=== PATIENT | male | born 1940 | race Caucasian/White ===

== ENCOUNTER 2023-08-21 15:39 | Inpatient (IN) ==
[2023-08-21] MEDS ORDERED: SODIUM CHLORIDE 0.9% 500 ML IV ONE ×2 (15:55→17:01)
[2023-08-21 16:10] LABS: Hematocrit (blood only) 28.7 % (42.0-52.0); Hemoglobin 8.8 g/dl (14.0-18.0); Mean Corpuscular Hemoglobin 27.2 pg (25.0-34.0); Mean Corpuscular Hgb Conc 30.7 g/dL (32.0-36.0); Mean Corpuscular Volume 88.6 fL (80.0-100.0); Mean Platelet Volume 9.5 fL (9.4-12.4); Nucleated RBC # (auto) 0.02 K/uL (0.00-0.12); Nucleated RBC % (auto) 0.2 %; Platelet Count 312 K/uL (130-400); RDW Coefficient of Variation 14.5 % (11.5-14.5); RDW Standard Deviation 46.9 fL (36.4-46.3); Red Blood Count 3.24 M/uL (4.70-6.10); White Blood Count 12.91 K/ul (4.8-10.8)
--- NOTE | 2023-08-21 16:22 | XRay Report ---
SINGLE VIEW CHEST CLINICAL HISTORY: Generalized weakness. FINDINGS: An AP, portable, upright chest radiograph is compared to study dated 05/02/2023. The examina tion is degraded by portable technique and patient rotation. The heart is enlarged and noting athero sclerotic calcification of the thoracic aorta. The pulmonary vasculature is noncongested. There is mi ld elevation of the right hemidiaphragm with bibasilar scarring/atelectasis. No airspace consolidatio n or large pleural effusion is identified. No pneumothorax is seen. The skeletal structures are osteo penic. There are chronic/healed left-sided rib fractures. IMPRESSION: Cardiomegaly with no active disease in the chest. ACT 112: Negative or not required by law. Electronically signed by: Scooter Ryder M.D. 08/21/2023 4:21 PM
--- NOTE | 2023-08-21 16:25 | Emergency Department Note ---
Impression & Plan Symptomatic anemia, Acute GI bleeding, SARS-CoV-2 positive ED Provider Note NAME: CAYDEN RAHMAN AGE: 83 SEX: M : 1940 ARRIVES VIA: Ambulance INFORMANT: Patient ED PROVIDER(S): Jarett Sutherland DO CHIEF COMPLAINT: weakness HPI: Patient is an 83-year-old male who presents ER who notes that he feels very weak. This has been present for the past 2 days. He denies any headache or change in vision. No chest pain or shortness of breath. No nausea, vomiting, or diarrhea. He has no other complaints. No cough or congestion. No dysuria, urgency, or frequency. He notes he was at [facility] and admitted at the end of July for COVID. His symptoms have resolved. He did have physical therapy and now he is weak again. ADDITIONAL HISTORY OBTAINED: Per HPI Chronic Medical/Social Conditions Affecting Care: Per HPI PAST MEDICAL HISTORY:See Below PAST SURGICAL HISTORY:See Below FAMILY HISTORY:See Below SOCIAL HISTORY:See Below HOME MEDICATIONS:See Below ALLERGIES:See Below VITALS:See Below PHYSICAL EXAMINATION: GENERAL: Sitting up in bed, alert, well appearing, well nourished, no distress, non-toxic EYE EXAM: normal conjunctiva. PERRL and EOM's grossly intact. OROPHARYNX: no exudate, no erythema, lips, buccal mucosa, and tongue normal and mucous membranes are moist NECK: supple, no nuchal rigidity, no adenopathy, non-tender LUNGS: Clear to auscultation. Normal chest wall mechanics HEART: no murmurs, S1 normal and S2 normal ABDOMEN: abdomen soft, non-tender, normo-active bowel sounds, no masses, no rebound or guarding. RECTAL: Heme positive UPPER EXTREMITIES: upper extremities are grossly normal. LOWER EXTREMITIES: No pitting edema. NEURO EXAM: Normal sensorium, cranial nerves II-XII intact, normal speech, no weakness of arms, no weakness of legs. No drift. Finger to nose intact. Gross sensation intact. MEDICAL DECISION MAKING: Patient is an 83-year-old male who presents ER for above-stated complaint. IV was established blood work was obtained. Labs show mild leukocytosis of 12,000. Significant anemia at 8.8 down from 14.8 in May. He is on Eliquis. Rectal heme positive. INR 1.3. BMP with a creatinine of 1.75 up from a baseline of 1. BUN elevated at 60 suggestive of a GI bleed. LFTs bilirubin was unremarkable. Lipase normal. UA was contaminated. Viral panel positive for COVID. He has no belly pain. He was updated bedside. He was given IV fluids. Discussed case with the hospitalist Dr. Benedicto Sandoval for further evaluation management treatment. Consults/Care Managements Discussions: Per MDM Triage Nursing notes reviewed. Limited review of prior medical records performed Vital Signs: reviewed and remarkable for no significant abnormalities Differential diagnosis: Infection, dehydration, metabolic abnormality, hypo/hyperglycemia, electrolyte disturbance, anemia, hypoxia, cardiac sources, intracerebral event, toxicologic, neurologic, as well as other pathologies. ER treatment provided: See below Diagnostics interpreted by me include EKG and cardiac monitoring as listed below: -Cardiac Monitoring: An order was placed for continuous cardiac monitoring. The monitor shows a rate of 80 with afib rhythm. -ECG: none -Laboratory studies:Interpreted by me as stated above in MDM and shown below. Imaging studies: Xrays: As interpreted by me: Portable AP report 1 view the chest shows no focal infiltrate CTs show: none Procedures:none Critical Care: None Past Med/Surg History Medical History (Updated 08/21/23 @ 18:35 by Bright Basilio PA-C) Persistent atrial fibrillation Arthritis Anemia Cataract RT EYE (LEFT EYE CATARACT REMOVED) Seasonal allergies Left-sided tinnitus Left asymmetrical SNHL AF (paroxysmal atrial fibrillation) FOLLOWED BY [facility] Hyperlipidemia Benign essential hypertension Surgical History History of tooth extraction History of cataract surgery LEFT H/O elbow surgery LEFT x4 H/O arthroscopy of knee RIGHT x3 , LEFT x1 H/O arthroscopy of shoulder RT Family History Father Coronary heart disease Myocardial infarction Brother Cancer, Onset Age: 63 Lung cancer met to brain @ age 67 Sister Cancer, Onset Age: 60 unknown primary Sister No problems noted. 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 Products Required: No Beliefs That Will Affect Care: None marital status: Current Living Situation: Spouse current occupational status: retired 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 Feels Safe at Home: Yes Childhood Exposure to Second-Hand Smoke: Yes caffeine: Yes during the past year weight has: remained stable Dental Care, Regularly: Yes Physical Activity Frequency: Daily Physical Activity Frequency Comment: walking Seatbelt Use: always Sunscreen Use: Yes Do you think of yourself as: straight/heterosexual Assistive Devices: Cane, Glasses and Hearing Aid - Bilateral Allergies Allergies Allergy/AdvReac Type Severity Reaction Status Date / Time pravastatin Allergy Intermediate myalgias Verified 08/21/23 17:15 TRACI Inhibitors Allergy Mild Cough Verified 08/21/23 17:15 adhesive Allergy Mild skin Verified 08/21/23 17:15 irritation latex Allergy Mild SKIN Verified 08/21/23 17:15 IRRIATION lisinopril Allergy Mild Cough Verified 08/21/23 17:15 furosemide [From Lasix] AdvReac Mild Rash Verified 08/21/23 17:15 Home Meds Home Medications Medication Instructions Recorded Confirmed rosuvastatin 5 mg tablet 5 mg PO 3XWK 05/02/23 08/21/23 Previous Rx's Medication Instructions Recorded candesartan 16 mg tablet 16 mg PO BID #180 tabs 02/14/23 fluticasone propionate 50 1 spray intranasal BID #3 ea 05/03/23 mcg/actuation nasal spray,suspension apixaban 5 mg tablet (Eliquis) 5 mg PO BID #180 tabs 05/11/23 verapamil 240 mg 24 hr 240 mg PO BID #180 caps 05/11/23 capsule,extended release pantoprazole 40 mg tablet,delayed 40 mg PO PM #90 tabs 05/23/23 release carvedilol 12.5 mg tablet (Coreg) 18.75 mg (1.5 x 12.5 mg) PO BID 05/31/23 #270 tabs Results & Data (ED) Vital Signs Vital Signs - 24 hr 08/21/23 15:55 08/21/23 16:29 08/21/23 17:00 Temperature 37.3 C Temperature Source Oral Pulse Rate 67 67 Pulse Rate [Apical] 88 Pulse Rhythm Irregular Pulse Rhythm [Apical] Irregular Respiratory Rate 18 17 Respiratory Effort / Characteristics Non-Labored Spontaneous Non-Labored Spontaneous Respiratory Depth Normal Normal Respiratory Pattern Regular Regular Blood Pressure 113/57 L Blood Pressure [Right Arm] 138/82 Blood Pressure Mean 75 Blood Pressure Mean [Right Arm] 100 Pulse Oximetry 95 91 Oxygen Delivery Method Room Air Room Air Sepsis Recent Fever Within 48 Hours No Sepsis New/Unexplained Change in Mental Status N/A Sepsis Action Taken by Nursing No Action Required Laboratory Data 08/21/23 15:50 08/21/23 15:50 Lab Results 08/21/23 08/21/23 08/21/23 Range/Units 15:50 17:14 18:00 WBC 12.91 H (4.8-10.8) K/ul RBC 3.24 L (4.70-6.10) M/uL Hgb 8.8 L (14.0-18.0) g/dl Hct 28.7 L (42.0-52.0) % MCV 88.6 (80.0-100.0) fL MCH 27.2 (25.0-34.0) pg MCHC 30.7 L (32.0-36.0) g/dL RDW Std Deviation 46.9 H (36.4-46.3) fL RDW Coeff of [place] 14.5 (11.5-14.5) % Plt Count 312 (130-400) K/uL MPV 9.5 (9.4-12.4) fL Immature Gran % (Auto) 0.6 % Neut % (Auto) 82.5 % Lymph % (Auto) 6.2 % Hopkins % (Auto) 10.4 % Eos % (Auto) 0.1 % Baso % (Auto) 0.2 % Neut # (Auto) 10.66 H (1.40-6.50) K/uL Lymph # (Auto) 0.80 L (1.20-3.40) K/uL Hopkins # (Auto) 1.34 H (0.11-0.59) K/uL Eos # (Auto) 0.01 (0.00-0.50) K/uL Baso # (Auto) 0.02 (0.00-0.20) K/uL Immature Gran # (Auto) 0.08 (0.01-0.20) K/uL Absolute Nucleated RBC 0.02 (0.00-0.12) K/uL Nucleated RBC % (auto) 0.2 % Dohle Bodies 1+ Echinocytes 1+ PT 13.9 H (9.0-12.0) Seconds INR 1.3 H (0.9-1.1) APTT 35 H (21-31) Seconds PTT Ratio 1.2 Sodium 131 L (136-145) mmol/L Potassium 4.2 (3.5-5.1) mmol/L Chloride 98 (98-107) mmol/L Carbon Dioxide 24 (21-32) mmol/L Anion Gap 9 (3-11) BUN 60 H (6-23) mg/dl Creatinine 1.75 H (0.6-1.4) mg/dl Est Cr Clr Drug Dosing 33.6 ml/min Est GFR ( Amer) 41.1 ml/min Est GFR (Non-Af Amer) 35.5 ml/min BUN/Creatinine Ratio 34.3 H (10-20) Glucose 101 H (70-99(Fasting)) mg/dl Calcium 8.6 (8.6-10.3) mg/dl Total Bilirubin 0.7 (0.2-1.0) mg/dl AST 10 L (13-39) U/L ALT 9 (7-52) U/L Alkaline Phosphatase 68 (34-104) U/L Total Protein 5.7 L (6.0-8.3) gm/dl Albumin 3.0 L (3.4-5.0) gm/dl Globulin 2.7 (2.5-4.0) gm/dl Albumin/Globulin Ratio 1.1 (0.9-2) Lipase 4 L (11-82) U/L Urine Color [place] Urine Appearance Cloudy A (Clear) Urine pH 5.0 (4.5-7.5) Ur Specific [place] 1.028 (1.000-1.030) Urine Protein 1+ H (Negative) Urine Glucose (UA) Negative (Negative) Urine Ketones Negative (Negative) Urine Blood Negative (Negative) Urine Nitrite Positive A (Negative) Urine Bilirubin 2+ H (Negative) Urine Urobilinogen Negative (Negative) Ur Leukocyte Esterase 1+ H (Negative) Urine WBC (Auto) 1-5 (0-5) /hpf Urine RBC (Auto) 0-4 (0-4) /hpf U Hyaline Cast (Auto) 10-30 H (0-5) /lpf U Epithel Cells (Auto) >30 H (0-5) /lpf Urine Bacteria (Auto) Negative (Negative) Granular Casts 5-10 H (0) /lpf Urine Yeast Not Reportable Adenovirus (PCR) Not Detected (NotDetected) B. pertussis DNA (PCR) Not Detected (NotDetected) B.parapertussis DNA PCR Not Detected (NotDetected) C. pneumoniae DNA (PCR) Not Detected (NotDetected) Coronavirus OC43 (PCR) Not Detected (NotDetected) Coronavirus HKU1 (PCR) Not Detected (NotDetected) Coronavirus 229E (PCR) Not Detected (NotDetected) SARS-CoV-2 (PCR) DETECTED A* (NotDetected) Coronavirus NL63 (PCR) Not Detected (NotDetected) Human Metapneumovir PCR Not Detected (NotDetected) Influenza Type A (PCR) Not Detected (NotDetected) Influenza Type B (PCR) Not Detected (NotDetected) M. pneumoniae (PCR) Not Detected (NotDetected) Parainfluenza 1 (PCR) Not Detected (NotDetected) Parainfluenza 2 (PCR) Not Detected (NotDetected) Parainfluenza 3 (PCR) Not Detected (NotDetected) Parainfluenza 4 (PCR) Not Detected (NotDetected) RSV (PCR) Not Detected (NotDetected) Entero/Rhino (PCR) Not Detected (NotDetected) Crossmatch See Detail Administered Medications Discontinued Medications Sodium Chloride (Nss) 500 mls @ 999 mls/hr IV .Q31M ONE Stop: 08/21/23 16:25 Last Infusion: 08/21/23 17:10 Dose: Infused Documented By: Admin: 08/21/23 16:36 Dose: 999 mls/hr Documented By: [place] Sodium Chloride (Nss) 500 mls @ 999 mls/hr IV .Q31M ONE Stop: 12/17/23 17:31 Last Admin: 08/21/23 18:07 Dose: 999 mls/hr Documented By: KMO Imaging Data Radiologist's Impression: Chest X-Ray 08/21/23 15:55 SINGLE VIEW CHEST CLINICAL HISTORY: Generalized weakness. FINDINGS: An AP, portable, upright chest radiograph is compared to study dated 05/02/2023. The examination is degraded by portable technique and patient rotation. The heart is enlarged and noting atherosclerotic calcification of the thoracic aorta. The pulmonary vasculature is noncongested. There is mild elevation of the right hemidiaphragm with bibasilar scarring/atelectasis. No airspace consolidation or large pleural effusion is identified. No pneumothorax is seen. The skeletal structures are osteopenic. There are chronic/healed left- sided rib fractures. IMPRESSION: Cardiomegaly with no active disease in the chest. ACT 112: Negative or not required by law. Electronically signed by: Scooter Ryder M.D. 08/21/2023 4:21 PM Discharge Plan Visit Data Chief Complaint: Weakness ED Provider: Jarett Sutherland Discharge Problem: Symptomatic anemia, Acute GI bleeding, SARS-CoV-2 positive Forms Stand Alone Forms: My [facility] avandeo Prescriptions Prescriptions: No Action candesartan 16 mg tablet 16 mg PO BID Qty: 180 3RF fluticasone propionate 50 mcg/actuation spray,suspension 1 spray intranasal BID Qty: 3 3RF pantoprazole 40 mg tablet,delayed release (DR/EC) 40 mg PO PM Qty: 90 1RF carvedilol [Coreg] 12.5 mg tablet 18.75 mg PO BID Qty: 270 3RF Rx Instructions: must administer with a meal/food Eliquis 5 mg tablet 5 mg PO BID Qty: 180 3RF verapamil 240 mg capsule,ext rel. pellets 24 hr 240 mg PO BID Qty: 180 3RF rosuvastatin 5 mg tablet 5 mg PO 3XWK Rx Instructions: 5 mg PO every Mon, wed and tuesday Referrals Referrals: Mihir Cai MD [Primary Care Provider] -
[2023-08-21 16:26] LABS: Basophils # (auto) 0.02 K/uL (0.00-0.20); Basophils % (auto) 0.2 %; Dohle Bodies 1+; Echinocytes 1+; Eosinophils # (auto) 0.01 K/uL (0.00-0.50); Eosinophils % (auto) 0.1 %; Immature Granulocytes # (auto) 0.08 K/uL (0.01-0.20); Immature Granulocytes % (auto) 0.6 %; Lymphocytes % (auto) 6.2 %; Monocytes # (auto) 1.34 K/uL (0.11-0.59); Monocytes % (auto) 10.4 %; Neutrophils # (auto) 10.66 K/uL (1.40-6.50); Neutrophils % (auto) 82.5 %
[2023-08-21 16:33] LABS: Bilirubin,Total 0.7 mg/dl (0.2-1.0); Calcium 8.6 mg/dl (8.6-10.3); Potassium 4.2 mmol/L (3.5-5.1)
[2023-08-21 16:39] LABS: Albumin Globulin Ratio 1.1 (0.9-2); BUN Creatinine Ratio 34.3 (10-20); Creatinine Clr Calc Pharmacy 33.6 ml/min; Est GFR (African American) 41.1 ml/min; Est GFR (Non-African American) 35.5 ml/min; Globulin 2.7 gm/dl (2.5-4.0); Total Protein 5.7 gm/dl (6.0-8.3)
[2023-08-21 17:05] LABS: Adenovirus PCR Not Detected (NotDetected); Bordetella parapertussis PCR Not Detected (NotDetected); Bordetella pertussis PCR Not Detected (NotDetected); Chlamydia pneumoniae PCR Not Detected (NotDetected); Coronavirus 229E PCR Not Detected (NotDetected); Coronavirus HKU1 PCR Not Detected (NotDetected); Coronavirus NL63 PCR Not Detected (NotDetected); Coronavirus OC43PCR Not Detected (NotDetected); Human Metapneumovirus PCR Not Detected (NotDetected); Influenza A PCR Not Detected (NotDetected); Influenza B PCR Not Detected (NotDetected); Mycoplasma pneumoniae PCR Not Detected (NotDetected); Parainfluenza Virus 1 PCR Not Detected (NotDetected); Parainfluenza Virus 2 PCR Not Detected (NotDetected); Parainfluenza Virus 3 PCR Not Detected (NotDetected); Parainfluenza Virus 4 PCR Not Detected (NotDetected); Respiratory Syncytial VirusPCR Not Detected (NotDetected); Rhinovirus/Enterovirus PCR Not Detected (NotDetected)
[2023-08-21 17:09] LABS: Coronavirus CoV-2 (COVID19)PCR DETECTED (NotDetected)
--- NOTE | 2023-08-21 17:30 | History & Physical Report ---
Date of Service August 21, 2023 Assessment & Plan (1) UGIB (upper gastrointestinal bleed): Plan: -Admit to the PCU on tele and pulse oximetry -Has been hemodynamically stable and stable on RA -Presented to the ED with 48 hours of generalized weakness -Found to have a Hgb of 8.8, down from 14 as of May -Patient and report he has been experiencing melanotic stool since [facility] of last month -Patient is on Eliquis and has a known hx of grade I esophageal varices -No signs of major bleeding since arrival -Last dose of Eliquis was this am -Patient likely received steroids on his last admission as his states that he was initially hypoxic and requiring oxygen at the beginning of his admission -Likely has an upper GI Ulcer and slow GI bleed due to his Eliquis anticoagulating -Denies NSAID, alcohol, or tobacco use -S/P 1L NSS in the ED -Will start Octreotide bolus and drip, pantoprazole bolus with drip, and ceftriaxone with his history of esophageal varices -Hold all anticoagulation at this time -Will repeat an H&H now, if still falling with Type/cross to have blood ready -Monitor CBC q6h moving forward -Was type/screened in the ED, blood consented on admission -NPO -GI Consult placed -AM CMP, mag, PT/INT, aptt (2) Acute blood loss anemia: Plan: -See upper GI bleed -Patient has been blood consented and type/screened -Monitor CBC q6h, transfuse for Hgb < 7, major bleed, or instability -GI consult placed -Hold all anticoagulation at this time -Will hold Eliquis reversal at this time as he is without major bleeding and hemodynamically stable -Rest of management per UGIB (3) Esophageal varices: Plan: -Patient was diagnosed with Grade I esophageal varices after last EGD for iron deficiency anemia on 12/08/21 -Abdominal US obtained on 03/19/22 showed Hepatic steatosis. -Patient with hepatomegaly on exam today, not mentioned on US last year -LFT's are WNL today -Will repeat RUQ US on admission for further evaluation (4) JESSIE (acute kidney injury): Plan: -Cr at 1.75 today, baseline is near 1.0 -Has been having poor oral intake and appears dehydrated on exam -Was still taking Candesartan -Likely pre-renal due to dehydration -Will obtain renal/bladder US to rule out obstruction -Continue IV hydration overnight -Monitor intake/output and daily renal function (5) COVID-19: Plan: -Positive on full respiratory biofire today -Patient reportedly tested positive on 07/28 when he was [facility] -No formal test results today to confirm previous positivity -Spoke with infection control, appreciate their assistance; will keep on isolation precautions overnight. They will call [facility] tomorrow to confirm and decide final isolation requirement -Patient is currently stable on RA -Supportive treatment (6) Hyponatremia: Plan: -Sodium of 131 today -Patient appears significantly dehydrated on exam -Likely due to poor oral intake with acute illness -S/P 1L NSS -Monitor am sodium level with ongoing IV hydration (7) Abnormal urinalysis: Plan: -UA obtain in the ED shows cloudy urine positive for nitrites, 1+ LE, 10-30 hyaline casts, and > 30 epithelial cells -Patient denies urinary symptoms at this time -Do not believe this to be a true infection at this time, can follow cultures -He will be covered, regardless, with Ceftriaxone ordered for GI bleed with esophageal varices (8) Generalized weakness: Plan: -Likely due to his acute blood loss anemia and deconditioning from recent [facility] (9) AF (paroxysmal atrial fibrillation): Plan: -Currently in rate-controlled afib -Holding Eliquis with GI bleed -Will continue Verapamil for now to prevent RVR (10) Benign essential hypertension: Plan: -Stable -Holding Carvedilol and Candesartan for now to prevent hypotension Plan The patient was discussed with Dr. Sandoval at the time of the admission History of Present Illness Chief Complaint: Generalized weakness Primary Care Provider: Mihir Cai MD Theodore is an 83 year old male with a PMH significant for afib on Eliquis, Iron deficiency anemia, HTN, Zachary I esophageal varices on EGD performed by Dr. Ch on 12/08/21 who presented to the [facility] ED on 08/21 with complaints of generalized weakness. He was noted to have a soft BP of 103/58 on arrival but was otherwise stable. Labs were significant for a leukocytosis of 12.9 with neutrophil predominance of 10, hgb of 8.8 (down from 14 as of 05/11/23), Cr of 1.75 (baseline is near 1.0), BUN of 60, sodium of 131, LFT's WNL, full respiratory biofire positive for covid 19, and stool occult blood positive per the ED. Prior to admission the patient was given 2L NSS and type/screened in case he requires transfusion. At the time of the exam the patient was lying in bed in no acute distress. He states that he started to develop generalized weakness approximately 48 hours ago. His only other complaints are decreased appetite over this time and dehydration. He explains that he was [facility] due to generalized weakness from Covid 19 infection. He states that he did not have respiratory symptoms and did not require oxygen therapy. He was discharged to inpatient rehab after his hospitalization for 3 days then discharged home. When asked, he states that he has been experiencing melanotic stool daily since his admission to [facility]. He denies fever, chills, chest pain, abdominal pain, nausea, vomiting, dysuria, hematuria, bright red bowel movements, and recent trauma. He last took his Eliquis this am. We discussed code status, he is a DNR/DNI and would want his to make medical decisions for him if he cannot make them himself. I was able to call and speak with Theodore's , Antoinette Castro [phone], to obtain further history. She confirms that he was admitted to [facility]. She explains that he initially presented to [facility] and was hypoxic on RA. He was transferred to [facility] for further care. She is unsure if he was given steroids while admitted but states that he was back to RA prior to discharge. She states that the patient the patient has been having poor oral intake over the past few days. She confirms that he has been having melanotic stool and had an episode of diarrhea earlier today. Please refer to Dr. Sandoval's attestation for any changes to the treatment plan Allergies Allergy/AdvReac Type Severity Reaction Status Date / Time pravastatin Allergy Intermediate myalgias Verified 08/21/23 17:15 TRACI Inhibitors Allergy Mild Cough Verified 08/21/23 17:15 adhesive Allergy Mild skin Verified 08/21/23 17:15 irritation latex Allergy Mild SKIN Verified 08/21/23 17:15 IRRIATION lisinopril Allergy Mild Cough Verified 08/21/23 17:15 furosemide [From Lasix] AdvReac Mild Rash Verified 08/21/23 17:15 Home Medications Medication Instructions Recorded Confirmed Type candesartan 16 mg tablet 16 mg PO BID #180 tabs 02/14/23 08/21/23 Rx rosuvastatin 5 mg tablet 5 mg PO 3XWK 05/02/23 08/21/23 History fluticasone propionate 50 1 spray intranasal BID #3 ea 05/03/23 08/21/23 Rx mcg/actuation nasal spray,suspension apixaban 5 mg tablet (Eliquis) 5 mg PO BID #180 tabs 05/11/23 08/21/23 Rx verapamil 240 mg 24 hr 240 mg PO BID #180 caps 05/11/23 08/21/23 Rx capsule,extended release pantoprazole 40 mg tablet,delayed 40 mg PO PM #90 tabs 05/23/23 08/21/23 Rx release carvedilol 12.5 mg tablet (Coreg) 18.75 mg (1.5 x 12.5 mg) PO BID 05/31/23 08/21/23 Rx #270 tabs Past Med/Surg History Medical History (Updated 08/21/23 @ 19:22 by Bright Basilio PA-C) Persistent atrial fibrillation Arthritis Anemia Cataract RT EYE (LEFT EYE CATARACT REMOVED) Seasonal allergies Left-sided tinnitus Left asymmetrical SNHL AF (paroxysmal atrial fibrillation) FOLLOWED BY [facility] Hyperlipidemia Benign essential hypertension Surgical History History of tooth extraction History of cataract surgery LEFT H/O elbow surgery LEFT x4 H/O arthroscopy of knee RIGHT x3 , LEFT x1 H/O arthroscopy of shoulder RT Family History Father Coronary heart disease Myocardial infarction Brother Cancer, Onset Age: 63 Lung cancer met to brain @ age 67 Sister Cancer, Onset Age: 60 unknown primary Sister No problems noted. Other No family history of adverse response to anesthesia No family history of bleeding disorder Denies family history of Ovarian cancer Prostate cancer Breast cancer Colorectal cancer Social History Smoking Status: Never smoker Tobacco Type: Cigarettes Age Started Using Tobacco: 19; Age Quit Using Tobacco: 41; packs per day: 1; Second Hand Exposure: No; Do You Dip or Chew Tobacco: No; Tobacco Cessation Education Requested by Patient: No Hx Alcohol Use: No Hx Substance Use: No Preferred Language: Maori Communication Ability: Effective Visual Impairment: No Limitations Hearing Ability: Normal Curriculum Assistant Principal Required: No Beliefs That Will Affect Care: None marital status: Current Living Situation: Spouse Current Living Situation Comment: Independant Living highrise current occupational status: retired 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 Other Information That Helps Us Care for You: No other: former Feels Safe at Home: Yes Safety Concerns: Feels Safe At This Time Childhood Exposure to Second-Hand Smoke: Yes caffeine: Yes during the past year weight has: remained stable Dental Care, Regularly: Yes Physical Activity Frequency: Daily Physical Activity Frequency Comment: walking Seatbelt Use: always Sunscreen Use: Yes Do you think of yourself as: straight/heterosexual Assistive Devices: Glasses and Walker Physical Exam Physical Exam: Physical Exam: General: In no acute distress, stated age, chronically ill appearing but non- toxic appearing HEENT: Normocephalic, atraumatic, no scleral icterus, pupils around round, symmetrical, and reactive to light, dry mucus membranes, trachea midline, no thyromegaly Chest/Pulm: No respiratory distress, symmetrical chest expansion, clear breath sounds throughout Cardiac: irregular rate and rhythm, no murmurs noted Abdomen: Abdominal distention without signs of bruising, normoactive bowel sounds, soft, non-tender to palpation throughout; hepatomegaly Musculoskeletal: Symmetrical and without signs of acute trauma, upper and lower extremities with full ROM, no atrophy, spasticity, or flaccidity Extremities: Radial, dorsalis pedis, and posterior tibial pulses are intact and symmetrical, 2+ edema noted in the BL LE's Skin: Warm, dry, no rashes , lesions, or scars noted Neuro: Alert and oriented to person, place, month, year, and president, no focal defects, baseline tremor noted Psych: No acute distress, calm and cooperative during the exam Results & Data Results & Data Vital Signs (Past 12 Hours) Vital Signs Temp Pulse Resp BP Pulse Ox O2 Del Method 08/21/23 16:29 67 12/17/23 15:55 37.3 C 67 18 113/57 L 95 Room Air Laboratory Results Abnormal lab results 08/21/23 08/21/23 08/21/23 Range/Units 15:50 17:14 18:00 WBC 12.91 H (4.8-10.8) K/ul RBC 3.24 L (4.70-6.10) M/uL Hgb 8.8 L (14.0-18.0) g/dl Hct 28.7 L (42.0-52.0) % MCHC 30.7 L (32.0-36.0) g/dL RDW Std Deviation 46.9 H (36.4-46.3) fL Neut # (Auto) 10.66 H (1.40-6.50) K/uL Lymph # (Auto) 0.80 L (1.20-3.40) K/uL Coleman # (Auto) 1.34 H (0.11-0.59) K/uL PT 13.9 H (9.0-12.0) Seconds INR 1.3 H (0.9-1.1) APTT 35 H (21-31) Seconds Sodium 131 L (136-145) mmol/L BUN 60 H (6-23) mg/dl Creatinine 1.75 H (0.6-1.4) mg/dl BUN/Creatinine Ratio 34.3 H (10-20) Glucose 101 H (70-99(Fasting)) mg/dl AST 10 L (13-39) U/L Total Protein 5.7 L (6.0-8.3) gm/dl Albumin 3.0 L (3.4-5.0) gm/dl Lipase 4 L (11-82) U/L Urine Appearance Cloudy A (Clear) Urine Protein 1+ H (Negative) Urine Nitrite Positive A (Negative) Urine Bilirubin 2+ H (Negative) Ur Leukocyte Esterase 1+ H (Negative) U Hyaline Cast (Auto) 10-30 H (0-5) /lpf U Epithel Cells (Auto) >30 H (0-5) /lpf Granular Casts 5-10 H (0) /lpf SARS-CoV-2 (PCR) DETECTED A* (NotDetected) Crossmatch See Detail Diagnostic Findings Chest X-Ray 08/21/23 15:55 SINGLE VIEW CHEST CLINICAL HISTORY: Generalized weakness. FINDINGS: An AP, portable, upright chest radiograph is compared to study dated 05/02/2023. The examination is degraded by portable technique and patient rotation. The heart is enlarged and noting atherosclerotic calcification of the thoracic aorta. The pulmonary vasculature is noncongested. There is mild elevat ion of the right hemidiaphragm with bibasilar scarring/atelectasis. No airspace consolidation or large pleural effusion is identified. No pneumothorax is seen. The skeletal structures are osteopenic. There are chronic/healed left-sided rib fractures. IMPRESSION: Cardiomegaly with no active disease in the chest. ACT 112: Negative or not required by law. Electronically signed by: Scooter Ryder M.D. 08/21/2023 4:21 PM ECG Additional Comments: Atrial fibrillation Abnormal ECG When compared with ECG of 11-MAY-2023 13:39, (unconfirmed) T wave amplitude has decreased in Anterolateral leads Code Status & VTE Plan Code Status DNR/DNI VTE Prophylaxis Plan VTE Prophylaxis will be ordered: Yes Supervising Physician Co-Signing Physician Notes I personally saw and examined the patient. I verified all mullins points and agree with Bright Basilio PA-C with the following exceptions and/or additions: 83 year old male presents to the ER with generalized weakness and fatigue after [facility]. Discharged summary is unavailable at the time of admission. Unknown most recent hemoglobin in [place] however his previous baseline in May was 14.5 and currently 8.8. No shortness of breath, cough, fever, chills, abdominal pain, chest pain. O/E Alert and orientated x 3, HS irregular rhythm, regular rate, chest clear to auscultation bilaterally, abdomen soft nontender, no CVA tenderness, no pedal edema, dry mucous membranes A/P Possible gastrointestinal bleed - significant hemoglobin drop from baseline in May with a reasonable to get the discharge summary from [facility] which has been requested. Having dark stools over the last month. Hemoccult positive. Given history of esophageal varices will treat with pantoprazole IV drip, octreotide, ceftriaxone. Trend hemoglobin q.6 hourly. Transfuse if hemoglobin less than 7. If requiring transfusion may consider Kcentra however appears to be hemodynamically stable and suspect that GI bleed is started this time. Hold antihypertensives at this time. Follow-up blood cultures. Suspected acute blood loss anemia Iron deficiency anemia - if not requiring transfusion consider Venofer IV PG Care Time/CCT Total # of Minutes Spent Total Time Spent with Patient: Total time spent is greater than 50% in coordination of care (as documented) at patient's floor/unit and/or counseling patient: Coding [place] [address] INT INP/OBS CARE 3/75MIN Patient Type Established Medical Decision Making High Complexity Diagnoses UGIB (upper gastrointestinal bleed) K92.2 Acute blood loss anemia D62 Esophageal varices I85.00 JESSIE (acute kidney injury) N17.9 COVID-19 U07.1 Hyponatremia E87.1 Abnormal urinalysis R82.90 Generalized weakness R53.1 AF (paroxysmal atrial fibrillation) I48.0 Benign essential hypertension I10
[2023-08-21 18:00] LABS: INR 1.3 (0.9-1.1); Partial Thromboplastin Ratio 1.2; Partial Thromboplastin Time 35 Seconds (21-31); Prothrombin Time 13.9 Seconds (9.0-12.0)
[2023-08-21] MEDS ORDERED: STAT IV/IM STA (18:02)
[2023-08-21] MEDS ORDERED: PANTOPRAZOLE BOLUS/DRIP IV STA (18:02)
[2023-08-21] MEDS ORDERED: OCTREOTIDE ACETATE 50 MCG in SYRINGE 9.5 ML IV STA (18:08)
[2023-08-21] MEDS ORDERED: PLASMA-LYTE A 1,000 ML IV ONE (18:09)
[2023-08-21] MEDS ORDERED: cefTRIAXone SODIUM 2,000 MG in DEXTROSE 5 % MINI-B 50 ML IV STA (18:12)
[2023-08-21] MEDS ORDERED: PANTOprazole 80 MG in DEXTROSE 5% 100 ML IV ONE (18:15)
[2023-08-21 18:20] LABS: Appearance Urine Cloudy (Clear); Bacteria Urine Automated Negative (Negative); Blood Urine Negative (Negative); Color Urine Orange; Epithelial Cell Urine Auto >30 /lpf (0-5); Glucose Urine UA Negative (Negative); Ketones Urine Negative (Negative); Leukocyte Esterase Urine 1+ (Negative); Nitrite Urine Positive (Negative); Protein Urine 1+ (Negative); Specific Gravity Urine 1.028 (1.000-1.030); Urobilinogen Urine Negative (Negative)
[2023-08-21 18:22] LABS: Bilirubin Urine 2+ (Negative)
[2023-08-21 18:31] LABS: RBC Urine Automated 0-4 /hpf (0-4)
[2023-08-21 19:05] LABS: Reticulocyte % 0.9 % (0.5-2.0); Reticulocytes # 0.03 10^6/uL (0.02-0.10)
[2023-08-21] MEDS: OCTREOTIDE ACETATE 500 MCG in 0.9 % SODIUM CHLORIDE 100 ML IV SCH (19:27)
[2023-08-21] MEDS: PANTOprazole 40 MG in DEXTROSE 5% MINI-B 100 ML IV SCH ×2 (19:28→23:42)
[2023-08-21 19:36] LABS: Hematocrit (blood only) 29.4 % (42.0-52.0)
[2023-08-21 20:03] LABS: Iron < 10 mcg/dl (35-175); Lactate Dehydrogenase 125 U/L (86-244); Unsaturated Iron Binding Cap 215 mcg/dl (155-355)
[2023-08-21 20:16] LABS: Ferritin 53.8 ng/ml (8-388)
[2023-08-21 20:22] LABS: Folate (Folic Acid),Ser orPlas 8.04 ng/ml (>5.38)
[2023-08-21] MEDS: VERAPAMIL HCL 240 MG TABCR PO SCH (21:54)
[2023-08-21 23:16] LABS: Hematocrit (blood only) 25.6 % (42.0-52.0); Hemoglobin 7.9 g/dl (14.0-18.0); Mean Corpuscular Hemoglobin 27.2 pg (25.0-34.0); Mean Corpuscular Hgb Conc 30.9 g/dL (32.0-36.0); Mean Corpuscular Volume 88.3 fL (80.0-100.0); Mean Platelet Volume 9.7 fL (9.4-12.4); Nucleated RBC # (auto) 0.02 K/uL (0.00-0.12); Nucleated RBC % (auto) 0.2 %; Platelet Count 262 K/uL (130-400); RDW Coefficient of Variation 14.6 % (11.5-14.5); RDW Standard Deviation 46.8 fL (36.4-46.3); White Blood Count 10.51 K/ul (4.8-10.8)
[2023-08-21] MEDS: PLASMA-LYTE A 1,000 ML IV SCH (23:43)
[2023-08-22] MEDS: OCTREOTIDE ACETATE 500 MCG in 0.9 % SODIUM CHLORIDE 100 ML IV SCH ×2 (04:00→16:48)
[2023-08-22] MEDS: PANTOprazole 40 MG in DEXTROSE 5% MINI-B 100 ML IV SCH ×4 (04:32→22:33)
[2023-08-22 05:42] LABS: Albumin Globulin Ratio 1.1 (0.9-2); Albumin Level 2.7 gm/dl (3.4-5.0); BUN Creatinine Ratio 38.5 (10-20); Bilirubin,Total 0.7 mg/dl (0.2-1.0); Calcium 7.7 mg/dl (8.6-10.3); Creatinine Clr Calc Pharmacy 48.2 ml/min; Est GFR (African American) 63.6 ml/min; Est GFR (Non-African American) 54.9 ml/min; Globulin 2.4 gm/dl (2.5-4.0); Potassium 4.1 mmol/L (3.5-5.1); Total Protein 5.1 gm/dl (6.0-8.3)
[2023-08-22 05:43] LABS: Hematocrit (blood only) 27.6 % (42.0-52.0); Hemoglobin 8.6 g/dl (14.0-18.0); Mean Corpuscular Hemoglobin 27.1 pg (25.0-34.0); Mean Corpuscular Hgb Conc 31.2 g/dL (32.0-36.0); Mean Corpuscular Volume 87.1 fL (80.0-100.0); Nucleated RBC # (auto) 0.04 K/uL (0.00-0.12); Nucleated RBC % (auto) 0.4 %; Platelet Count 317 K/uL (130-400); RDW Coefficient of Variation 14.6 % (11.5-14.5); Red Blood Count 3.17 M/uL (4.70-6.10); White Blood Count 10.06 K/ul (4.8-10.8)
[2023-08-22 05:52] LABS: INR 1.2 (0.9-1.1); Partial Thromboplastin Ratio 1.2; Partial Thromboplastin Time 35 Seconds (21-31); Prothrombin Time 13.4 Seconds (9.0-12.0)
--- NOTE | 2023-08-22 07:31 | Hospitalist Progress Note ---
Date of Service August 22, 2023 Assessment & Plan (1) UGIB (upper gastrointestinal bleed): Plan: Acute upper GI bleed with ongoing melena and acute blood loss anemia, was anticoagulated on apixaban for Afib. History of hepatic steatosis and grade 1 esophageal varices on EGD 12/2021. Denied NSAID use. Last EGD/colo by Dr. Ch 12/08/21 done for iron deficiency: grade 1 EVs, rectal polyp resected, diverticulosis Ddx is peptic or duodenal ulcer, esophagitis or gastritis, variceal bleed, AVM, gastric mass less likely with recent EGD, less likely small bowel or LGI source -continue monitoring serial H/H - stable this am, up to 27.6, 29.2 today -transfusion consent and T&S were obtained -apixaban held, last dose -continue octreotide and PPI drips, continue empiric ceftriaxone for now -gastroenterology consult recommendations reviewed - recommended holding anticoagulation, PPI/oct and clears for now -kcentra if hemodynamically significant bleeding - seems fairly low risk coagulopathy - PT/PTT and INR elevated at 1.2 related to apixaban, held Reviewed CBC, CMP (wnl), INR, coags today (2) Acute blood loss anemia: Plan: See above. Iron panel reviewed an iron deficient - serum iron<10 B12, folate normal -iron replacement indicated when taking po, outpatient follow up of anemia (3) Esophageal varices: Plan: -Patient was diagnosed with Grade I esophageal varices after last EGD for iron deficiency anemia on 12/08/21 -Abdominal US obtained on 03/19/22 showed Hepatic steatosis. -Patient with hepatomegaly on exam today, not mentioned on US last year -LFT's are not consistent with decompensated cirrhosis. Bili, platelets normal, INR mildly elevated related to apixaban. Hypoalbuminemic but may be nutritional and/or related to recent COVID -Will repeat RUQ US for further evaluation - reviewed - nodular cirrhotic appearing liver, stones and sludge in gallbladder, negative sonographic Tello's. He has no symptoms of acute cholecystitis and thickened GB wall is likely related to cirrhosis/edema. CBD appears normal and LFTs are normal. (4) JESSIE (acute kidney injury): Plan: -Cr at 1.75 on admission, baseline is near 1.0 -likely prerenal, was also taking candesartan (held) -Will obtain renal/bladder US to rule out obstruction -Continue IV hydration overnight -Monitor intake/output and daily renal function -Cr improved to 1.22 on 08/22 (5) COVID-19: Plan: -Positive on respiratory biofire in ED -Patient reportedly tested positive on 07/28 when he was admitted for a week at [facility] for COVID and hypoxia -discussed with infection control, no longer on isolation -Patient is currently stable with O2 sats near 90% on RA and asymptomatic (6) Hyponatremia: Plan: -Hypovolemic hyponatremia, Sodium of 131 improved to 133 with hydration (7) Abnormal urinalysis: Plan: -UA obtain in the ED shows cloudy urine positive for nitrites, 1+ LE, 10-30 hyaline casts, and > 30 epithelial cells -Patient denies urinary symptoms at this time -Do not believe this to be a true infection at this time, can follow cultures -He will be covered, regardless, with Ceftriaxone ordered for GI bleed with esophageal varices (8) Generalized weakness: Plan: -Likely due to his acute blood loss anemia and deconditioning from recent hospitalization at [facility] (9) AF (paroxysmal atrial fibrillation): Plan: -Currently in rate-controlled afib -Holding Eliquis with GI bleed -Will continue Verapamil for now to prevent RVR, carvedilol held (10) Benign essential hypertension: Plan: -Stable -Holding Carvedilol and Candesartan for now to prevent hypotension Plan DVT ppx: SCDs, anticoagulation held for bleeding Admission and Anticipated Discharge Date Admission Date: August 21, 2023 Subjective Theodore says he feels well. He denies any shortness of breath or cough and says he got over the COVID. He denies abdominal pain and back pain and has had no stools today. No emesis. No nausea. Tolerating clears well. Physical Exam 2 Physical Exam: PHYSICAL EXAMINATION Last 24h vital signs reviewed, see documentation in flowsheet General: comfortable appearing, no distress, lying in bed has some jello HEENT: Normocephalic, atraumatic, pupils round and equal, sclerae anicteric, no conjunctival injection, moist mucus membranes Lungs: Normal respiratory effort. Clear to auscultation bilaterally. No RRW Heart: Regular rate and rhythm, no murmurs. No JVD Abdomen: Soft, nontender, nondistended. Bowel sounds present. Extremities: Warm, dry, well-perfused. No extremity edema. Neuro: Alert and oriented x 4, face symmetric, moves 4 extremities well Psych: Normal affect and behavior Results & Data Results & Data Vital Signs (Past 12 Hours) Vital Signs Temp Pulse Pulse Resp BP BP Pulse Ox 08/22/23 03:54 36.7 C 77 18 103/56 L 88 L 08/21/23 22:54 37.2 C 77 20 101/65 89 L 08/21/23 22:00 80 08/21/23 20:30 37.6 C H 85 18 118/74 93 08/21/23 20:19 08/21/23 20:17 75 08/21/23 20:00 80 20 115/64 91 08/21/23 19:30 85 20 114/61 91 O2 Del Method 08/22/23 03:54 Room Air 08/21/23 22:54 Room Air 08/21/23 22:00 08/21/23 20:30 Room Air 08/21/23 20:19 Room Air 08/21/23 20:17 08/21/23 20:00 Room Air 08/21/23 19:30 Room Air Laboratory Results 08/22/23 15:54 08/22/23 04:22 PG Care Time/CCT Total # of Minutes Spent Total Time Spent with Patient: Total time spent is greater than 50% in coordination of care (as documented) at patient's floor/unit and/or counseling patient: Coding Level of Care Code 76309 SUB INP/OBS CARE 3/50MIN Diagnoses UGIB (upper gastrointestinal bleed) K92.2 Acute blood loss anemia D62 Esophageal varices I85.00 JESSIE (acute kidney injury) N17.9 COVID-19 U07.1 Hyponatremia E87.1 Abnormal urinalysis R82.90 Generalized weakness R53.1 AF (paroxysmal atrial fibrillation) I48.0 Benign essential hypertension I10
[2023-08-22] MEDS: PLASMA-LYTE A 1,000 ML IV SCH (08:13)
[2023-08-22] MEDS: VERAPAMIL HCL 240 MG TABCR PO SCH ×2 (08:14→20:16)
--- NOTE | 2023-08-22 09:16 | Ultrasound Report ---
ABDOMINAL ULTRASOUND, RIGHT UPPER QUADRANT HISTORY: Hepatomegaly; no hepatomegaly noted on last RUQ US. COMPARISON: Abdominal ultrasound 03/19/2022. FINDINGS: Pancreas: The pancreatic tail is obscured by overlying bowel gas. The remaining portions of the pancr eas are within normal limits. Liver: Coarse echotexture. There is subtle nodular thickening of the liver. This could represent guillermo y cirrhosis. Trace perihepatic fluid noted. The main portal vein is patent. Gallbladder: Stones and sludge within the gallbladder. There is diffuse gallbladder wall thickening m easuring up to 5 mm. The technologist reported a negative sonographic Tello sign. CBD: 5 mm. Right kidney: No hydronephrosis. Miscellaneous: Small right pleural effusion. IMPRESSION: 1. Stones and sludge within the gallbladder with an associated thickened gallbladder wall. However, t here is a negative sonographic Tello sign reported. Therefore, this is indeterminate and could repre sent an acute cholecystitis or secondary to the patient's cirrhosis/edema. No localized recommended. 2. Nodular contour to the liver consistent with cirrhosis. 3. Small right pleural effusion and trace perihepatic ascites. 4. Normal caliber common bile duct. ACT 112: Negative or not required by law. Electronically signed by: Bob Lai M.D. 08/22/2023 9:14 AM
--- NOTE | 2023-08-22 09:46 | Gastrointestinal Consultation ---
Date of Consultation August 22, 2023 Assessment & Plan (1) Esophageal varices: (2) UGIB (upper gastrointestinal bleed): Plan 83 year old male admitted with weakness and new anemia. Admits to dark stools over the past month. Hgb currently stable. Per patient and nursing, no signs of active bleeding at this time. He had last dose of eliquis 08/21 in the AM. Discussed case with Dr. Ch. At this time, we will monitor the patient and see how he does. Patient is agreeable with this. - continue protonix and octreotide drips. - monitor hgb/hct. transfuse as needed. - will place the patient on clear liquids to see how he does. Supervising Physician Co-Signing Physician Notes Agree with JONES Zelaya as above Abd: Soft, NT, ND, +BS Continue current therapy and supportive care No overt GI bleeding Tolerating clear liquid diet No plans for invasive testing at present. History of Present Illness Reason for Consultation: UGIB, Grade I esophageal varices. Requesting Physician: Bright GOLDMAN Attending Physician: Sarahi Lemos MD History of Present Illness Patient is an 83 year old male with a past medical history significant for a fib on Eliquis, Iron deficiency anemia, HTN, Zachary I esophageal varices on EGD performed by Dr. Ch on 12/08/21 who presented to the [facility] ED on 08/21 with complaints of generalized weakness. He tells me that he as inpatient with Covid at [facility] from 07/28 to 08/04 and that he just never really bounced back from this. He tells me that since that time he has been having weakness and feels lethargic. He also notices that over the past month that his stools have been dark. He admits to only one bowel movement daily. no brbpr. Upon work up in the ED he was found to have a hgb of 8.8 (down from 14 as of 05/11/23), Cr of 1.75 (baseline is near 1.0), BUN of 60, sodium of 131, LFT's WNL, full respiratory biofire positive for covid 19, and stool occult blood positive per the ED. Prior to admission the patient was given 2L NSS and type/screened in case he requires transfusion. He has not been given any blood products since admission. Per patient and nursing, he has not had any further bowel movements since admission. Hgb has been stable and 08/22 hgb is 8.6. he feels well other than weakness. He denies any nsaid use. He does use eliquis for A fib. Last dose was 12 AM. Patient denies any current issues with nausea, vomiting, dysphagia, heartburn, abdominal pain, unintentional weight loss, or bright red blood per rectum. I called and spoke with the patient's Atnoinette Castro at [phone] at patient request. Informed her how he has been doing. Allergies Allergy/AdvReac Type Severity Reaction Status Date / Time pravastatin Allergy Intermediate myalgias Verified 08/21/23 17:15 TRACI Inhibitors Allergy Mild Cough Verified 08/21/23 17:15 adhesive Allergy Mild skin Verified 08/21/23 17:15 irritation latex Allergy Mild SKIN Verified 08/21/23 17:15 IRRIATION lisinopril Allergy Mild Cough Verified 08/21/23 17:15 furosemide [From Lasix] AdvReac Mild Rash Verified 08/21/23 17:15 Home Medications Medication Instructions Recorded Confirmed Type candesartan 16 mg tablet 16 mg PO BID #180 tabs 02/14/23 08/21/23 Rx rosuvastatin 5 mg tablet 5 mg PO 3XWK 05/02/23 08/21/23 History fluticasone propionate 50 1 spray intranasal BID #3 ea 05/03/23 08/21/23 Rx mcg/actuation nasal spray,suspension apixaban 5 mg tablet (Eliquis) 5 mg PO BID #180 tabs 05/11/23 08/21/23 Rx verapamil 240 mg 24 hr 240 mg PO BID #180 caps 05/11/23 08/21/23 Rx capsule,extended release pantoprazole 40 mg tablet,delayed 40 mg PO PM #90 tabs 05/23/23 08/21/23 Rx release carvedilol 12.5 mg tablet (Coreg) 18.75 mg (1.5 x 12.5 mg) PO BID 05/31/23 08/21/23 Rx #270 tabs Patient History Medical History (Updated 08/21/23 @ 19:22 by Bright Basilio PA-C) Persistent atrial fibrillation Arthritis Anemia Cataract RT EYE (LEFT EYE CATARACT REMOVED) Seasonal allergies Left-sided tinnitus Left asymmetrical SNHL AF (paroxysmal atrial fibrillation) FOLLOWED BY [facility] Hyperlipidemia Benign essential hypertension Surgical History History of tooth extraction History of cataract surgery LEFT H/O elbow surgery LEFT x4 H/O arthroscopy of knee RIGHT x3 , LEFT x1 H/O arthroscopy of shoulder RT Family History Father Coronary heart disease Myocardial infarction Brother Cancer, Onset Age: 63 Lung cancer met to brain @ age 67 Sister Cancer, Onset Age: 60 unknown primary Sister No problems noted. Other No family history of adverse response to anesthesia No family history of bleeding disorder Denies family history of Ovarian cancer Prostate cancer Breast cancer Colorectal cancer Social History Smoking Status: Never smoker Tobacco Type: Cigarettes Age Started Using Tobacco: 19; Age Quit Using Tobacco: 41; packs per day: 1; Second Hand Exposure: No; Do You Dip or Chew Tobacco: No; Tobacco Cessation Education Requested by Patient: No Hx Alcohol Use: No Hx Substance Use: No Preferred Language: Mongolian Communication Ability: Effective Visual Impairment: No Limitations Hearing Ability: Normal Ui Architect Required: No Beliefs That Will Affect Care: None marital status: Current Living Situation: Spouse Current Living Situation Comment: Independant Living highrise current occupational status: retired 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 Other Information That Helps Us Care for You: No other: former Feels Safe at Home: Yes Safety Concerns: Feels Safe At This Time Childhood Exposure to Second-Hand Smoke: Yes caffeine: Yes during the past year weight has: remained stable Dental Care, Regularly: Yes Physical Activity Frequency: Daily Physical Activity Frequency Comment: walking Seatbelt Use: always Sunscreen Use: Yes Do you think of yourself as: straight/heterosexual Assistive Devices: Glasses and Walker Review of Systems Review of Systems: All systems reviewed & are unremarkable except as noted in HPI & below Physical Exam Constitutional: WD/WN, vitals as above Respiratory: normal respiratory effort, lungs clear to auscultation Cardiovascular: RRR, no murmur, no edema Gastrointestinal (Abdomen): normal bowel sounds, soft, nontender, no hepatosplenomegaly Skin: no rashes, warm and dry Psychiatric: Orientation: alert and oriented x 3 Affect: euthymic affect Results & Data Vital Signs (Past 12 Hours) Vital Signs Temp Pulse Pulse Resp BP Pulse Ox O2 Del Method 08/22/23 07:36 98.2 F 63 18 100/60 89 L Room Air 08/22/23 03:54 98.1 F 77 18 103/56 L 88 L Room Air 08/21/23 22:54 99.0 F 77 20 101/65 89 L Room Air 08/21/23 22:00 80 PG Care Time/CCT Total # of Minutes Spent Total Time Spent with Patient: Total time spent is greater than 50% in coordination of care (as documented) at patient's floor/unit and/or counseling patient: Coding Level of Care Code 58372 INT INP/OBS CARE 2/55MIN Diagnoses Esophageal varices I85.00 UGIB (upper gastrointestinal bleed) K92.2 Time Spent (min) 59
[2023-08-22 10:35] LABS: Hematocrit (blood only) 28.8 % (42.0-52.0); Hemoglobin 8.8 g/dl (14.0-18.0); Mean Corpuscular Hemoglobin 27.2 pg (25.0-34.0); Mean Corpuscular Hgb Conc 30.6 g/dL (32.0-36.0); Mean Corpuscular Volume 89.2 fL (80.0-100.0); Mean Platelet Volume 9.4 fL (9.4-12.4); Nucleated RBC # (auto) 0.02 K/uL (0.00-0.12); Nucleated RBC % (auto) 0.2 %; Platelet Count 309 K/uL (130-400); RDW Coefficient of Variation 14.6 % (11.5-14.5); RDW Standard Deviation 47.5 fL (36.4-46.3); Red Blood Count 3.23 M/uL (4.70-6.10)
[2023-08-22 16:27] LABS: Hematocrit (blood only) 29.2 % (42.0-52.0); Hemoglobin 8.9 g/dl (14.0-18.0); Mean Corpuscular Hemoglobin 26.9 pg (25.0-34.0); Mean Corpuscular Hgb Conc 30.5 g/dL (32.0-36.0); Mean Corpuscular Volume 88.2 fL (80.0-100.0); Mean Platelet Volume 9.7 fL (9.4-12.4); Nucleated RBC # (auto) 0.04 K/uL (0.00-0.12); Nucleated RBC % (auto) 0.4 %; Platelet Count 337 K/uL (130-400); RDW Coefficient of Variation 14.6 % (11.5-14.5); RDW Standard Deviation 47.2 fL (36.4-46.3); Red Blood Count 3.31 M/uL (4.70-6.10); White Blood Count 9.84 K/ul (4.8-10.8)
[2023-08-22] MEDS: cefTRIAXone SODIUM 2,000 MG in DEXTROSE 5 % MINI-B 50 ML IV SCH (16:49)
[2023-08-22 22:48] LABS: Hematocrit (blood only) 25.9 % (42.0-52.0); Mean Corpuscular Hemoglobin 26.8 pg (25.0-34.0); Mean Corpuscular Hgb Conc 30.9 g/dL (32.0-36.0); Mean Corpuscular Volume 86.9 fL (80.0-100.0); Mean Platelet Volume 9.8 fL (9.4-12.4); Platelet Count 300 K/uL (130-400); RDW Coefficient of Variation 14.6 % (11.5-14.5); RDW Standard Deviation 46.7 fL (36.4-46.3); Red Blood Count 2.98 M/uL (4.70-6.10); White Blood Count 9.93 K/ul (4.8-10.8)
[2023-08-23] MEDS: OCTREOTIDE ACETATE 500 MCG in 0.9 % SODIUM CHLORIDE 100 ML IV SCH ×3 (01:48→19:43)
[2023-08-23] MEDS: PANTOprazole 40 MG in DEXTROSE 5% MINI-B 100 ML IV SCH ×5 (03:17→23:20)
--- NOTE | 2023-08-23 05:58 | Electrocardiogram Report ---
Test Reason : Blood Pressure : / mmHG Vent. Rate : 068 BPM Atrial Rate : 000 BPM P-R Int : 000 ms QRS Dur : 074 ms QT Int : 408 ms P-R-T Axes : 000 057 058 degrees QTc Int : 433 ms Poor data quality, interpretation may be adversely affected Atrial fibrillation Abnormal ECG When compared with ECG of 11-MAY-2023 13:39, T wave amplitude has decreased in Anterolateral leads Confirmed by Sunny Gonzalez ([id number]) on 08/23/2023 5:57:56 AM Referred By: REFERRED SELF Confirmed By:Sunny Gonzalez
[2023-08-23] MEDS: VERAPAMIL HCL 240 MG TABCR PO SCH ×2 (08:26→21:10)
[2023-08-23 08:35] LABS: Albumin Level 2.5 gm/dl (3.4-5.0); BUN Creatinine Ratio 37.9 (10-20); Bilirubin,Total 0.7 mg/dl (0.2-1.0); Calcium 7.5 mg/dl (8.6-10.3); Creatinine Clr Calc Pharmacy 61.9 ml/min; Est GFR (African American) 86.1 ml/min; Est GFR (Non-African American) 74.2 ml/min; Globulin 2.4 gm/dl (2.5-4.0); Potassium 3.9 mmol/L (3.5-5.1); Total Protein 4.9 gm/dl (6.0-8.3)
[2023-08-23 08:59] LABS: INR 1.2 (0.9-1.1); Partial Thromboplastin Ratio 1.1; Partial Thromboplastin Time 30 Seconds (21-31); Prothrombin Time 13.5 Seconds (9.0-12.0)
[2023-08-23 09:46] LABS: Hemoglobin 8.3 g/dl (14.0-18.0)
--- NOTE | 2023-08-23 10:27 | Gastroenterology Progress Note ---
Date of Service August 23, 2023 Assessment & Plan (1) Esophageal varices: (2) UGIB (upper gastrointestinal bleed): Plan Patient feeling well currently. no signs of active GI bleeding. -Continue current therapy and supportive care - Tolerating clear liquid diet - No plans for invasive testing at present and patient is not interested in testing. he is questioning discharge to home. Admission and Anticipated Discharge Date Admission Date: August 21, 2023 Supervising Physician Co-Signing Physician Notes Agree with JONES Zelaya as above Abd: Soft, NT, ND, +BS Continue current therapy and supportive care Subjective 83 year old male admitted with weakness and new anemia. Admits to dark stools over the past month. Hgb 08/23 is 8.3 Per patient and nursing, no signs of active bleeding at this time and he has not had any bowel movements since admission. He had last dose of eliquis 08/21 in the AM. Patient feels well and is tolerating a liquid diet. He is questioning going home. he is not interested in having an EGD. rest of GI ros negative. Review of Systems Review of Systems: All systems reviewed & are unremarkable except as noted in HPI & below Physical Exam Constitutional: WD/WN, vitals as above Respiratory: normal respiratory effort. Cardiovascular: RRR, no murmur, no edema Gastrointestinal (Abdomen): normal bowel sounds, soft, nontender, no hepatosplenomegaly Skin: no rashes, warm and dry Psychiatric: Orientation: alert and oriented x 3 Affect: euthymic affect Results & Data Results & Data Vital Signs (Past 12 Hours) Vital Signs Temp Pulse Resp BP Pulse Ox O2 Del Method 08/23/23 07:23 98.2 F 78 19 113/69 90 Room Air 08/23/23 02:59 98.1 F 87 20 101/58 L 96 Room Air 08/22/23 23:13 98.2 F 87 20 111/73 89 L Room Air PG Care Time/CCT Total # of Minutes Spent Total Time Spent with Patient: Total time spent is greater than 50% in coordination of care (as documented) at patient's floor/unit and/or counseling patient: Coding Level of Care Code 89527 SUB INP/OBS CARE 1/25MIN Diagnoses Esophageal varices I85.00 UGIB (upper gastrointestinal bleed) K92.2
[2023-08-23] MEDS: CYANOCOBALAMIN 1000 MCG/ML VIAL IM SCH (11:19)
--- NOTE | 2023-08-23 13:05 | XRay Report ---
XR chest 1V portable CLINICAL HISTORY: recent covid, hypoxia COMPARISON STUDY: Chest radiograph August 21, 2023. FINDINGS: Low lung volumes are noted. Linear right perihilar opacity is unchanged and favors atelecta sis or scarring. Left basilar opacity has developed. There may be trace bilateral pleural effusions. There is no pneumothorax. Cardiomegaly is noted without evidence for pulmonary edema. IMPRESSION: 1. Interval development of left basilar opacity which could reflect pneumonia or atelectasis. Radiogr aphic follow-up to ensure resolution is recommended. 2. Cardiomegaly without evidence for pulmonary edema. ACT 112: Negative or not required by law. Electronically signed by: Ifeanyi Correa M.D. 08/23/2023 1:04 PM
[2023-08-23] MEDS: cefTRIAXone SODIUM 2,000 MG in DEXTROSE 5 % MINI-B 50 ML IV SCH (16:22)
[2023-08-23 17:46] LABS: Hematocrit (blood only) 28.5 % (42.0-52.0); Hemoglobin 8.6 g/dl (14.0-18.0)
--- NOTE | 2023-08-23 19:56 | Hospitalist Progress Note ---
Date of Service August 23, 2023 Assessment & Plan (1) UGIB (upper gastrointestinal bleed): Plan: Acute upper GI bleed in setting of apixaban for Afib. Known history of hepatic steatosis and grade 1 esophageal varices on EGD 12/2021. No chronic NSAID use. No etoh use. Last EGD/colo by Dr. Ch 12/08/21 done for iron deficiency: grade 1 EVs, rectal polyp resected, diverticulosis. apixaban remains on hold. GI following. continue octreotide and PPI drips. continue empiric ceftriaxone. clear liquid diet for now. serial H/H's. repeat CBC am. (2) Acute blood loss anemia: Plan: 2nd upper GI bleeding (presumed - melena stool, etc). B12 level is low-normal - replace Fe def - IV venofer tomorrow CBC am (3) Esophageal varices: Plan: known diagnosis 2021 EGD with such RUQ us this admission --> nodular cirrhotic appearing liver, stones and sludge in gallbladder, negative sonographic Tello's. He has no symptoms of acute cholecystitis and thickened GB wall is likely related to cirrhosis/edema. CBD appears normal and LFTs are normal. see above re: UGI bleeding (4) JESSIE (acute kidney injury): Plan: resolved Cr at 1.75 on admission Now 0.9 today (5) COVID-19: Plan: Patient reportedly tested positive on 07/28/23 when he was admitted for a week at [facility] for COVID illness Previous attending discussed with infection control -->isolation precautions d/c o2 sats are low-normal in RA --> repeat cxr -- r/o pneumonia, edema, etc (6) Hyponatremia: Plan: resolved Na 135 today (7) Generalized weakness: Plan: Likely due to his acute blood loss anemia and deconditioning from recent hospitalization and COVID illness (8) AF (paroxysmal atrial fibrillation): Plan: -Currently in rate-controlled afib -Holding Eliquis with GI bleed -Will continue Verapamil carvedilol remains held (9) Benign essential hypertension: Plan: Stable controlled HOLD Carvedilol HOLD ARB Admission and Anticipated Discharge Date Admission Date: August 21, 2023 Subjective denies any complaints no abd pain no N/V has not had any melena stools when he was hospitalized in [place] in Jul for COVID he never had pulmonary symptoms nor pneumonia denies any cough/congestion/dyspnea/CHOUDHARY tele - a.fib, rates <100 Review of Systems Review of Systems: cv - no cp, no orthopnea pulm - no dyspnea GI - no abd pain/nausea/emesis; no hematemesis Physical Exam Physical Exam: gen - NAD, pleasant neck - no JVD heart - irregular, s1 s2 lungs - CTA b/l abd - soft NT ND BS+ skin - generalized pallor ext - no edema, pulses 2+ b/l psych - a/o x 3 Results & Data Results & Data Vital Signs (Past 12 Hours) Vital Signs Temp Pulse Pulse Resp BP Pulse Ox O2 Del Method 08/23/23 19:22 36.8 C 75 16 117/64 91 Room Air 08/23/23 18:03 60 08/23/23 15:25 36.9 C 55 L 18 112/56 L 92 Room Air 08/23/23 11:20 36.5 C 63 20 104/59 L 94 Room Air 08/23/23 10:52 74 Laboratory Results Laboratory Results - last 48 hr 08/22/23 08/22/23 08/22/23 10:08 15:54 22:13 WBC 10.50 9.84 9.93 RBC 3.23 L 3.31 L 2.98 L Hgb 8.8 L 8.9 L 8.0 L Hct 28.8 L 29.2 L 25.9 L MCV 89.2 88.2 86.9 MCH 27.2 26.9 26.8 MCHC 30.6 L 30.5 L 30.9 L RDW Std Deviation 47.5 H 47.2 H 46.7 H RDW Coeff of Niles 14.6 H 14.6 H 14.6 H Plt Count 309 337 300 MPV 9.4 9.7 9.8 Absolute Nucleated RBC 0.02 0.04 Nucleated RBC % (auto) 0.2 0.4 PT INR APTT PTT Ratio Sodium Potassium Chloride Carbon Dioxide Anion Gap BUN Creatinine Est Cr Clr Drug Dosing Est GFR ( Amer) Est GFR (Non-Af Amer) BUN/Creatinine Ratio Glucose Calcium Magnesium Total Bilirubin AST ALT Alkaline Phosphatase Total Protein Albumin Globulin Albumin/Globulin Ratio 08/23/23 08/23/23 08/23/23 07:31 07:37 17:33 WBC RBC Hgb 8.3 L 8.6 L Hct 26.0 L 28.5 L MCV MCH MCHC RDW Std Deviation RDW Coeff of Niles Plt Count MPV Absolute Nucleated RBC Nucleated RBC % (auto) PT 13.5 H INR 1.2 H APTT 30 PTT Ratio 1.1 Sodium 135 L Potassium 3.9 Chloride 105 Carbon Dioxide 25 Anion Gap 5 BUN 36 H Creatinine 0.95 Est Cr Clr Drug Dosing 61.9 Est GFR ( Amer) 86.1 Est GFR (Non-Af Amer) 74.2 BUN/Creatinine Ratio 37.9 H Glucose 122 H Calcium 7.5 L Magnesium 2.0 Total Bilirubin 0.7 AST 56 H ALT 39 Alkaline Phosphatase 69 Total Protein 4.9 L Albumin 2.5 L Globulin 2.4 L Albumin/Globulin Ratio 1.0 PG Care Time/CCT Total # of Minutes Spent Total Time Spent with Patient: Total time spent is greater than 50% in coordination of care (as documented) at patient's floor/unit and/or counseling patient: Coding Level of Care Code 03390 SUB INP/OBS CARE 2/35MIN Diagnoses UGIB (upper gastrointestinal bleed) K92.2 Acute blood loss anemia D62 Esophageal varices I85.00 JESSIE (acute kidney injury) N17.9 COVID-19 U07.1 Hyponatremia E87.1 Generalized weakness R53.1 AF (paroxysmal atrial fibrillation) I48.0 Benign essential hypertension I10
[2023-08-24] MEDS: OCTREOTIDE ACETATE 500 MCG in 0.9 % SODIUM CHLORIDE 100 ML IV SCH ×2 (05:37→14:58)
[2023-08-24] MEDS: PANTOprazole 40 MG in DEXTROSE 5% MINI-B 100 ML IV SCH ×5 (05:38→19:48)
[2023-08-24] MEDS ORDERED: Nursing to Pharmacy Communication SCH (08:15)
[2023-08-24] MEDS: VERAPAMIL HCL 240 MG TABCR PO SCH ×2 (08:16→19:46)
[2023-08-24] MEDS: CYANOCOBALAMIN 1000 MCG/ML VIAL IM SCH (08:16)
[2023-08-24 08:17] LABS: Hematocrit (blood only) 27.9 % (42.0-52.0); Hemoglobin 8.7 g/dl (14.0-18.0); Mean Corpuscular Hemoglobin 26.4 pg (25.0-34.0); Mean Corpuscular Hgb Conc 31.2 g/dL (32.0-36.0); Mean Corpuscular Volume 84.8 fL (80.0-100.0); Mean Platelet Volume 9.6 fL (9.4-12.4); Nucleated RBC # (auto) 0.02 K/uL (0.00-0.12); Nucleated RBC % (auto) 0.2 %; Platelet Count 333 K/uL (130-400); RDW Coefficient of Variation 14.6 % (11.5-14.5); RDW Standard Deviation 45.1 fL (36.4-46.3); Red Blood Count 3.29 M/uL (4.70-6.10); White Blood Count 10.77 K/ul (4.8-10.8)
--- NOTE | 2023-08-24 10:15 | Communication Note ---
Date of Service: August 24, 2023 Patient had a small, brown bowel movements since yesterday per patient. no signs of GI bleeding at this time. hgb improved to 8.7. he tells me that he is tolerating liquids but he wants to advance his diet. called into our office reporting the same. - will advance diet. - he still tells me that he does not want any GI work up. - patient tells me he wishes to be discharged to home. he is worried that transportation is going to be an issue for him later in the week. - would recommend protonix 40mg bid on discharge. - I have scheduled him a follow up in our office for 09/07/23 at 9:20 am.
[2023-08-24] MEDS ORDERED: IRON SUCROSE 200 MG in 0.9 % SODIUM CHLORIDE 100 ML IV ONE (10:16)
--- NOTE | 2023-08-24 20:41 | Hospitalist Progress Note ---
Date of Service August 24, 2023 Assessment & Plan (1) UGIB (upper gastrointestinal bleed): Plan: Acute upper GI bleed in setting of apixaban for Afib. Known history of hepatic steatosis and grade 1 esophageal varices on EGD 12/2021. No chronic NSAID use. No etoh use. Last EGD/colo by Dr. Ch 12/08/21 done for iron deficiency: grade 1 EVs, rectal polyp resected, diverticulosis. apixaban remains on hold. GI following. continue octreotide and PPI drips thru tonight (72 hours) then stop. can stop empiric ceftriaxone. diet advanced to regular by GI. H/H remain stable. repeat CBC am. (2) Acute blood loss anemia: Plan: 2nd upper GI bleeding (presumed - melena stool, etc). B12 level is low-normal - replace Fe def - IV venofer x 1 today; plan a 2nd dose tomorrow CBC am (3) Esophageal varices: Plan: known diagnosis 2021 EGD with such RUQ us this admission --> nodular cirrhotic appearing liver, stones and sludge in gallbladder, negative sonographic Tello's. He has no symptoms of acute cholecystitis and thickened GB wall is likely related to cirrhosis/edema. CBD appears normal and LFTs are normal. see above re: UGI bleeding stop octreotide drip at 72 hours later tonight (4) JESSIE (acute kidney injury): Plan: resolved Cr at 1.75 on admission Now <1 (5) COVID-19: Plan: Patient reportedly tested positive on 07/28/23 when he was admitted for a week at [facility] for COVID illness Previous attending discussed with infection control -->isolation precautions d/c o2 sats are low-normal in RA --> repeat cxr -- negative (6) Hyponatremia: Plan: resolved (7) Generalized weakness: Plan: Likely due to his acute blood loss anemia and deconditioning from recent hospitalization and COVID illness PT, OT needs rehab post-d/c (8) AF (paroxysmal atrial fibrillation): Plan: -Currently in rate-controlled afib -Holding Eliquis with GI bleed -Will continue Verapamil carvedilol remains held (9) Benign essential hypertension: Plan: Stable controlled HOLD Carvedilol HOLD ARB cont CCB Plan updated by phone this evening will d/w social work in am about rehab Admission and Anticipated Discharge Date Admission Date: August 21, 2023 Subjective no issues overnight had a normal brown stool today no abd pain no N/V no hematemesis had regular food at lunch - tolerated such worked with PT today -- VERY weak, rehab advised we had lengthy discussion about rehab post-d/c initially not interested, but as we talked more he seemed to become more agreeable he lives <1 minute from [facility] I spoke with pt's by phone - she is very supportive of him going to rehab Review of Systems Review of Systems: pulm - no dyspnea or CHOUDHARY; no cough GI - no vomiting cv - no chest pain or orthopnea Physical Exam Physical Exam: gen - NAD, pleasant, looks good neck - no JVD heart - irregular, s1 s2, no murmur lungs - CTA b/l abd - soft NT ND BS+ skin - generalized pallor ext - no edema, pulses 2+ b/l psych - a/o x 3 Results & Data Results & Data Vital Signs (Past 12 Hours) Vital Signs Temp Pulse Pulse Resp BP BP Pulse Ox 08/24/23 20:13 36.7 C 86 18 113/67 93 08/24/23 19:45 36.8 C 82 18 131/71 93 08/24/23 15:46 36.4 C L 73 19 125/76 96 08/24/23 15:42 77 08/24/23 11:14 36.5 C 91 H 19 129/74 93 O2 Del Method 08/24/23 20:13 Room Air 08/24/23 19:45 Room Air 08/24/23 15:46 Room Air 08/24/23 15:42 08/24/23 11:14 Room Air Laboratory Results Laboratory Results 08/21/23 08/23/23 08/24/23 17:14 17:33 07:28 WBC 10.77 RBC 3.29 L Hgb 8.6 L 8.7 L Hct 28.5 L 27.9 L MCV 84.8 MCH 26.4 MCHC 31.2 L RDW Std Deviation 45.1 RDW Coeff of Niles 14.6 H Plt Count 333 MPV 9.6 Absolute Nucleated RBC 0.02 Nucleated RBC % (auto) 0.2 Sodium Potassium Chloride Carbon Dioxide Anion Gap BUN Creatinine Est Cr Clr Drug Dosing Est GFR ( Amer) Est GFR (Non-Af Amer) BUN/Creatinine Ratio Glucose Calcium Crossmatch See Detail PG Care Time/CCT Total # of Minutes Spent Total Time Spent with Patient: Total time spent is greater than 50% in coordination of care (as documented) at patient's floor/unit and/or counseling patient: Coding Level of Care Code 49005 SUB INP/OBS CARE 2/35MIN Diagnoses UGIB (upper gastrointestinal bleed) K92.2 Acute blood loss anemia D62 Esophageal varices I85.00 JESSIE (acute kidney injury) N17.9 COVID-19 U07.1 Hyponatremia E87.1 Generalized weakness R53.1 AF (paroxysmal atrial fibrillation) I48.0 Benign essential hypertension I10
[2023-08-24] MEDS: PANTOprazole 40 MG TAB PO SCH (22:23)
[2023-08-25 06:26] LABS: Hematocrit (blood only) 26.7 % (42.0-52.0); Hemoglobin 8.3 g/dl (14.0-18.0); Mean Corpuscular Hemoglobin 26.7 pg (25.0-34.0); Mean Corpuscular Hgb Conc 31.1 g/dL (32.0-36.0); Mean Corpuscular Volume 85.9 fL (80.0-100.0); Mean Platelet Volume 9.5 fL (9.4-12.4); Nucleated RBC % (auto) 0.9 %; Platelet Count 378 K/uL (130-400); RDW Coefficient of Variation 14.5 % (11.5-14.5); RDW Standard Deviation 45.3 fL (36.4-46.3); Red Blood Count 3.11 M/uL (4.70-6.10); White Blood Count 10.68 K/ul (4.8-10.8)
[2023-08-25 06:55] LABS: BUN Creatinine Ratio 22.4 (10-20); Calcium 7.4 mg/dl (8.6-10.3); Creatinine Clr Calc Pharmacy 69.2 ml/min; Est GFR (Non-African American) 81.1 ml/min; Potassium 4.1 mmol/L (3.5-5.1)
[2023-08-25] MEDS: PANTOprazole 40 MG TAB PO SCH ×2 (08:42→20:13)
[2023-08-25] MEDS: VERAPAMIL HCL 240 MG TABCR PO SCH ×2 (08:42→20:13)
[2023-08-25] MEDS: CYANOCOBALAMIN (B-12) 500 MCG TABLET PO SCH (08:42)
[2023-08-25] MEDS ORDERED: IRON SUCROSE 300 MG in SODIUM CHLORIDE 0.9% 250 ML IV ONE (10:00)
--- NOTE | 2023-08-25 20:27 | Hospitalist Progress Note ---
Date of Service August 25, 2023 Assessment & Plan (1) UGIB (upper gastrointestinal bleed): Plan: Acute upper GI bleed in setting of apixaban for Afib. Known history of hepatic steatosis and grade 1 esophageal varices on EGD 12/2021. No chronic NSAID use. No etoh use. Last EGD/colo by Dr. Ch 12/08/21 done for iron deficiency: grade 1 esophageal varices, rectal polyp resected, diverticulosis seen on those studies. apixaban remains on hold. cont to hold past discharge. GI assistance appreciated completed 72 hours of octreotide and PPI drips. empiric ceftriaxone stopped. diet advanced to regular by GI and tolerating such. H/H remain stable. repeat CBC am. give venofer IV today. (2) Acute blood loss anemia: Plan: 2nd upper GI bleeding (presumed - melena stool, etc). B12 level is low-normal - replace Fe def - s/p IV venofer 200mg on 08/24 give 300mg today, 08/25 give 300mg tomorrow, 08/26 CBC am (3) Esophageal varices: Plan: known diagnosis 2021 EGD with such RUQ us this admission --> nodular cirrhotic appearing liver, stones and sludge in gallbladder, negative sonographic Tello's. He has no symptoms of acute cholecystitis and thickened GB wall is likely related to cirrhosis/edema. CBD appears normal and LFTs are normal. see above re: UGI bleeding stopped octreotide drip at 72 hours H/H stable (4) JESSIE (acute kidney injury): Plan: resolved Cr at 1.75 on admission Now <1 (5) COVID-19: Plan: Patient reportedly tested positive on 07/28/23 when he was admitted for a week at [facility] for COVID illness Previous attending discussed with infection control -->isolation precautions d/c o2 sats are low-normal in RA --> repeat cxr -- negative (6) Hyponatremia: Plan: resolved (7) Generalized weakness: Plan: Likely due to his acute blood loss anemia this admission as well as deconditioning from recent hospitalization and COVID illness cont PT, OT needs rehab post-d/c --> he is agreeable, referred to [facility] for such (8) AF (paroxysmal atrial fibrillation): Plan: Currently in rate-controlled afib Holding Eliquis with GI bleed Will continue Verapamil carvedilol remains held will use metoprolol tartrate in ric as this will provide better rate control (9) Benign essential hypertension: Plan: Stable controlled resume beta pk cont verapamil holding ARB for now Plan updated by phone yesterday evening care d/w social work re: rehab Admission and Anticipated Discharge Date Admission Date: August 21, 2023 Subjective no issues overnight tele - a.fib no abd pain no N/V no hematemesis no melena - stool today was brown denies any dyspnea he worked with OT - they, too, recommended rehab he is agreeable to rehab at [facility] Review of Systems Review of Systems: cv - no chest pain, no orthopnea, no edema pulm - no cough/dyspnea GI - no vomiting, no nausea, tolerating diet Physical Exam Physical Exam: gen - NAD, pleasant, looks very good neck - no JVD mouth - MMM heart - irregular, s1 s2, no murmur lungs - CTA b/l abd - soft NT ND BS+ skin - generalized pallor unchanged ext - no edema, pulses 2+ b/l psych - a/o x 3 Results & Data Results & Data Vital Signs (Past 12 Hours) Vital Signs Temp Pulse Pulse Resp BP BP Pulse Ox 08/25/23 19:26 36.8 C 100 H 20 126/72 95 08/25/23 15:08 36.4 C L 83 17 109/65 95 08/25/23 14:00 78 08/25/23 12:12 36.9 C 76 18 106/59 L 96 O2 Del Method 08/25/23 19:26 Room Air 08/25/23 15:08 Room Air 08/25/23 14:00 08/25/23 12:12 Room Air Laboratory Results Laboratory Results - last 24 hr 08/25/23 05:54 WBC 10.68 RBC 3.11 L Hgb 8.3 L Hct 26.7 L MCV 85.9 MCH 26.7 MCHC 31.1 L RDW Std Deviation 45.3 RDW Coeff of Niles 14.5 Plt Count 378 MPV 9.5 Absolute Nucleated RBC 0.10 Nucleated RBC % (auto) 0.9 Sodium 137 Potassium 4.1 Chloride 105 Carbon Dioxide 27 Anion Gap 5 BUN 19 Creatinine 0.85 Est Cr Clr Drug Dosing 69.2 Est GFR ( Amer) 94.0 Est GFR (Non-Af Amer) 81.1 BUN/Creatinine Ratio 22.4 H Glucose 98 Calcium 7.4 L PG Care Time/CCT Total # of Minutes Spent Total Time Spent with Patient: Total time spent is greater than 50% in coordination of care (as documented) at patient's floor/unit and/or counseling patient: Coding Level of Care Code 53666 SUB INP/OBS CARE 2/35MIN Diagnoses UGIB (upper gastrointestinal bleed) K92.2 Acute blood loss anemia D62 Esophageal varices I85.00 JESSIE (acute kidney injury) N17.9 COVID-19 U07.1 Hyponatremia E87.1 Generalized weakness R53.1 AF (paroxysmal atrial fibrillation) I48.0 Benign essential hypertension I10
[2023-08-25] MEDS ORDERED: METOPROLOL TARTRATE 25 MG TAB PO SCH (21:00)
[2023-08-26 07:54] LABS: Hematocrit (blood only) 27.6 % (42.0-52.0); Hemoglobin 8.3 g/dl (14.0-18.0); Mean Corpuscular Hemoglobin 26.4 pg (25.0-34.0); Mean Corpuscular Hgb Conc 30.1 g/dL (32.0-36.0); Mean Corpuscular Volume 87.9 fL (80.0-100.0); Mean Platelet Volume 9.6 fL (9.4-12.4); Nucleated RBC # (auto) 0.05 K/uL (0.00-0.12); Nucleated RBC % (auto) 0.6 %; Platelet Count 430 K/uL (130-400); RDW Coefficient of Variation 14.8 % (11.5-14.5); RDW Standard Deviation 46.8 fL (36.4-46.3); Red Blood Count 3.14 M/uL (4.70-6.10); White Blood Count 8.82 K/ul (4.8-10.8)
[2023-08-26 07:56] LABS: Creatinine Clr Calc Pharmacy 72.6 ml/min; Est GFR (African American) 95.9 ml/min; Est GFR (Non-African American) 82.8 ml/min
[2023-08-26] MEDS ORDERED: IRON SUCROSE 300 MG in SODIUM CHLORIDE 0.9% 250 ML IV ONE (08:34)
[2023-08-26] MEDS ORDERED: METOPROLOL TARTRATE 25 MG TAB PO SCH (09:00)
[2023-08-26] MEDS: VERAPAMIL HCL 240 MG TABCR PO SCH (09:52)
[2023-08-26] MEDS: PANTOprazole 40 MG TAB PO SCH (09:53)
[2023-08-26] MEDS: CYANOCOBALAMIN (B-12) 500 MCG TABLET PO SCH (09:53)
--- NOTE | 2023-08-26 14:15 | Discharge Summary ---
Date of Service August 26, 2023 Admission HPI Per Admitting Provider Theodore is an 83 year old male with a PMH significant for afib on Eliquis, Iron deficiency anemia, HTN, Zachary I esophageal varices on EGD performed by Dr. Ch on 12/08/21 who presented to the [facility] ED on 08/21 with complaints of generalized weakness. He was noted to have a soft BP of 103/58 on arrival but was otherwise stable. Labs were significant for a leukocytosis of 12.9 with neutrophil predominance of 10, hgb of 8.8 (down from 14 as of 05/11/23), Cr of 1.75 (baseline is near 1.0), BUN of 60, sodium of 131, LFT's WNL, full respiratory biofire positive for covid 19, and stool occult blood positive per the ED. Prior to admission the patient was given 2L NSS and type/screened in case he requires transfusion. At the time of the exam the patient was lying in bed in no acute distress. He states that he started to develop generalized weakness approximately 48 hours ago. His only other complaints are decreased appetite over this time and dehydration. He explains that he was admitted at [facility] from 07/28-08/04 due to generalized weakness from Covid 19 infection. He states that he did not have respiratory symptoms and did not require oxygen therapy. He was discharged to inpatient rehab after his hospitalization for 3 days then discharged home. When asked, he states that he has been experiencing melanotic stool daily since his admission to [facility]. He denies fever, chills, chest pain, abdominal pain, nausea, vomiting, dysuria, hematuria, bright red bowel movements, and recent trauma. He last took his Eliquis this am. We discussed code status, he is a DNR/DNI and would want his to make medical decisions for him if he cannot make them himself. I was able to call and speak with Theodore's , Antoinette Castro [phone], to obtain further history. She confirms that he was admitted to [facility]. She explains that he initially presented to [facility] and was hypoxic on . He was transferred to [facility] for further care. She is unsure if he was given steroids while admitted but states that he was back to RA prior to discharge. She states that the patient the patient has been having poor oral intake over the past few days. She confirms that he has been having melanotic stool and had an episode of diarrhea earlier today. Please refer to Dr. Sandoval's attestation for any changes to the treatment plan Discharge Exam gen - NAD, pleasant, looks very good neck - no JVD mouth - MMM heart - irregular, s1 s2, no murmur lungs - CTA b/l abd - soft NT ND BS+ skin - generalized pallor unchanged ext - no edema, pulses 2+ b/l psych - a/o x 3 Discharge Data Allergies Allergy/AdvReac Type Severity Reaction Status Date / Time pravastatin Allergy Intermediate myalgias Verified 08/21/23 17:15 TRACI Inhibitors Allergy Mild Cough Verified 08/21/23 17:15 adhesive Allergy Mild skin Verified 08/21/23 17:15 irritation latex Allergy Mild SKIN Verified 08/21/23 17:15 IRRIATION lisinopril Allergy Mild Cough Verified 08/21/23 17:15 furosemide [From Lasix] AdvReac Mild Rash Verified 08/21/23 17:15 Consultations 08/21/23 17:00 ED Decision to Admit Stat 08/21/23 18:08 Consult Gastroenterology Routine 08/21/23 22:12 HIM [Consult Health Information Management] Routine Ordered Studies 08/22/23 18:53 US liver Routine Hospital Course (1) UGIB (upper gastrointestinal bleed): Acute upper GI bleed in setting of apixaban for Afib. Known history of hepatic steatosis and grade 1 esophageal varices on EGD 12/2021. No chronic NSAID use. No etoh use. Last EGD/colo by Dr. Ch 12/08/21 done for iron deficiency: grade 1 esophageal varices, rectal polyp resected, diverticulosis seen on those studies. apixaban remains on hold. cont to hold past discharge. GI assistance appreciated completed 72 hours of octreotide and PPI drips. empiric ceftriaxone stopped. diet advanced to regular by GI and tolerating such. H/H remain stable. repeat CBC am. give venofer IV today. (2) Acute blood loss anemia: 2nd upper GI bleeding (presumed - melena stool, etc). B12 level is low-normal - replace Fe def - s/p IV venofer 200mg on 08/24 give 300mg today, 08/25 give 300mg tomorrow, 08/26 CBC am (3) Esophageal varices: known diagnosis 2021 EGD with such RUQ us this admission --> nodular cirrhotic appearing liver, stones and sludge in gallbladder, negative sonographic Tello's. He has no symptoms of acute cholecystitis and thickened GB wall is likely related to cirrhosis/edema. CBD appears normal and LFTs are normal. see above re: UGI bleeding stopped octreotide drip at 72 hours H/H stable (4) JESSIE (acute kidney injury): resolved Cr at 1.75 on admission Now <1 (5) COVID-19: Patient reportedly tested positive on 07/28/23 when he was admitted for a week at [facility] for COVID illness Previous attending discussed with infection control -->isolation precautions d/c o2 sats are low-normal in RA --> repeat cxr -- negative (6) Hyponatremia: resolved (7) Generalized weakness: Likely due to his acute blood loss anemia this admission as well as deconditioning from recent hospitalization and COVID illness cont PT, OT needs rehab post-d/c --> he is agreeable, referred to [facility] for such (8) AF (paroxysmal atrial fibrillation): Currently in rate-controlled afib Holding Eliquis with GI bleed Will continue Verapamil carvedilol remains held will use metoprolol tartrate in ric as this will provide better rate control (9) Benign essential hypertension: Stable controlled resume beta pk cont verapamil holding ARB for now Plan updated by phone yesterday evening care d/w social work re: rehab Home Health Attestation I certify that this patient is under my care and that I, or a physicians medical office assistant working with me, had a face to-face encounter that meets the home health kysy-mh-vder encounter requirements with this patient. The encounter with the patient was in whole, or in part, for the following medical condition, which is the primary reason for home health care (list medical condition): GI bleed I certify that, based on my findings, the following services are medically necessary home health services: My clinical findings support the need for the above services because: OT Assess ADL Status and Restore Function w ADLs PT Assessment for Endurance / Balance / Strength PT Eval for Safety and Mobility PT Eval for Safety, Gait Training, Assistive Devices PT Gait and Balance Training, Strengthening and Safety Skilled Nsg Assessment Further, I certify that my clinical findings support that this patient is homebound (i.e. absences from home require considerable and taxing effort and are for medical reasons or yazidism services or infrequently or of short duration when for other reasons) because: Supportive Aid - Walker Certification for Home Health Services: Based on the above findings, I certify that this patient is confined to the home and needs intermittent long-term care, physical therapy and/or speech therapy or continues to need occupational therapy. The patient is under my care, and I have initiated the establishment of the plan of care. This patient will be followed by a physician who will periodically review the plan of care. Discharge Plan Discharge Items Patient Disposition: Home - Home Health Services Reason For Visit: GENERALIZED WEAKNESS, COVID 19 +, GI BLEED Discharge Diagnosis: 1. suspected upper gastrointestinal bleeding 2. anemia due to #2 above; discharge hemoglobin level 8.3 3. chronic atrial fibrillation 4. vitamin B12 deficiency 5. iron deficiency - 3 runs of IV iron given 6. cirrhosis of the liver with known esophageal varices Activity: As commented below Activity Comment: gradually increase activities as tolerated Non-emergency contact: Primary Care Provider and Community Program Assistant Call non-emergency contact if: you have any medication questions and your symptoms worsen Follow-up/Referrals: Mihir Cai MD [Primary Care Provider] - 09/02/23 11:30 am (Follow up scheduled on : 09/02/23 @ 11:30) Avinash Forrest PA-C [Physician Armature Winder Repair Helper] - 09/07/23 9:20 am (follow-up with gastroenterology due to upper GI bleeding ) Diet: Regular Addtl Attending Provider Instructions: Mr Castro, You were hospitalized due to suspected upper gastrointestinal bleeding ("upper GI bleed"). You have a history of esophageal varices which are dilated blood vessels in the esophagus that people can develop from cirrhosis of the liver. It is possible you bled from these, or an irritated stomach, an ulcer, etc. Gastroenterology saw you in consultation; an acid varsity baseball coach drip and other treatments were given to you. Your blood count (red cell number) was stable for several days. Your hemoglobin level at discharge is 8.3. Your hemoglobin level has been in the mid-8 range for several days. You have iron deficiency due to the GI bleeding and you received 3 runs of IV iron while here. We also found that you are vitamin B12 deficient and we gave you supplemental B12 as well. It is likely going to take you at least 1-2 weeks to recover from this hospitalization. Please gradually increase your activities as tolerated. You will need home PT/OT to help you regain your strength. Recommendations - 1. for your esophagus/stomach - * INCREASE your pantoprazole to 40mg TWICE DAILY 2. STOP your Eliquis. 3. DO NOT TAKE mwem-gmx-sjnriwu anti-inflammatory pills including aspirin, motrin, ibuprofen, aleve, naprosyn, naproxen. 4. TYLENOL IS OK in small quantities for aches / pains. Mfiv-leq-cbjurff tylenol 500mg every 6 hours as needed is permissible. 5. STOP your candesartan. 6. STOP your carvedilol. In its place START metoprolol 12.5mg twice daily. The metoprolol is for your a.fib and blood pressure. 7. TAKE wiuk-pbx-eymexdh vitamin B12 -- 1000mcg (1mg) once daily. You will need to take this for at least 6 months. 8. For the next 5 days please avoid excessive quantities of caffeinated duke erages (soda, coffee, tea, etc), spicy foods, fried foods. 9. Please abstain from alcohol due to your liver disease and recent GI bleeding. 10. Follow-up - see separate section. 11. You will need a repeat CBC blood count at the time of your hospital follow- up with your family doctor. 12. You do not need to take khww-deb-ixfsfld oral iron since we gave you IV iron three times. You could potentially need more IV iron in the future, however. Your outpatient doctors can tell you if you need such down the line. Return to [facility] if - * you have black/dark/tarry stools * you see bright red blood in your stools * you are dizzy or lightheaded * you have shortness of breath or chest pain * you develop abdominal pains * any other concerns It was our pleasure to care for you! Happy holidays :) Pending Studies at Discharge: No Stand-Alone Forms: My [facility] [employer], Smoking Cessation Medications and DC Order Prescriptions: New metoprolol tartrate 25 mg Tablet 12.5 mg PO BID Qty: 60 2RF cyanocobalamin (vitamin B-12) 1,000 mcg tablet 1,000 mcg PO DAILY Qty: 90 3RF Continued fluticasone propionate 50 mcg/actuation spray,suspension 1 spray intranasal BID Qty: 3 3RF verapamil 240 mg capsule,ext rel. pellets 24 hr 240 mg PO BID Qty: 180 3RF rosuvastatin 5 mg tablet 5 mg PO [id number] Rx Instructions: 5 mg PO every Mon, tue and tuesday Changed pantoprazole 40 mg tablet,delayed release (DR/EC) 40 mg PO BID Qty: 60 2RF Held Eliquis 5 mg tablet 5 mg PO BID Qty: 180 3RF Hold Instructions: hold due to recent gastrointestinal bleeding; only resume if your outpatient doctors recommend to do so Discontinued candesartan 16 mg tablet 16 mg PO BID Qty: 180 3RF carvedilol [Coreg] 12.5 mg tablet 18.75 mg PO BID Qty: 270 3RF Rx Instructions: must administer with a meal/food Discharge Orders: Discharge Order (Routine); Ordered 08/26/23 Ordered By: Rylan Mar Admission Data Admit Date/Time: 08/21/23 17:30 Attending Provider: Rylan Mar Admit Provider: Rylan Sandoval Primary Care Provider: Mihir Cai Other Providers: Rylan Sandoval; Sekou Freeman Jr; [facility] Coding Diagnoses UGIB (upper gastrointestinal bleed) K92.2 Acute blood loss anemia D62 Esophageal varices I85.00 JESSIE (acute kidney injury) N17.9 COVID-19 U07.1 Hyponatremia E87.1 Generalized weakness R53.1 AF (paroxysmal atrial fibrillation) I48.0 Benign essential hypertension I10
== END 2023-08-26 15:34 | disposition home health service (06) | DRG 377 ==
LOC: ED 15:39 → SUATTDRO 17:30 → 2S 17:30

== ENCOUNTER 2023-08-31 10:21 | Inpatient (IN) ==
--- NOTE | 2023-08-31 11:06 | XRay Report ---
SINGLE VIEW CHEST CLINICAL HISTORY: Generalized weakness. FINDINGS: 2 AP upright chest radiographs are compared to study dated 08/23/2023. The heart is enlarge d noting atherosclerotic calcification of the thoracic aorta. The pulmonary vasculature is not conges anders. There is elevation of the right hemidiaphragm. Small pleural effusions are suspected with depend ent atelectasis. No pneumothorax is seen. The skeletal structures are osteopenic. The bony thorax is grossly intact. IMPRESSION: 1. Cardiomegaly without radiographic evidence of congestive failure. 2. Suspect small pleural effusion. ACT 112: Negative or not required by law. Electronically signed by: Scooter Ryder M.D. 08/31/2023 11:05 AM
[2023-08-31 11:49] LABS: Hematocrit (blood only) 32.1 % (42.0-52.0); Hemoglobin 10.1 g/dl (14.0-18.0); Mean Corpuscular Hemoglobin 27.5 pg (25.0-34.0); Mean Corpuscular Hgb Conc 31.5 g/dL (32.0-36.0); Mean Corpuscular Volume 87.5 fL (80.0-100.0); Mean Platelet Volume 9.1 fL (9.4-12.4); Platelet Count 514 K/uL (130-400); RDW Coefficient of Variation 17.1 % (11.5-14.5); RDW Standard Deviation 52.2 fL (36.4-46.3); Red Blood Count 3.67 M/uL (4.70-6.10); White Blood Count 31.16 K/ul (4.8-10.8)
[2023-08-31 11:56] LABS: Alanine Aminotransferase 15 U/L (7-52); Albumin Globulin Ratio 0.9 (0.9-2); Albumin Level 2.9 gm/dl (3.4-5.0); Alkaline Phosphatase 84 U/L (34-104); Anion Gap 7 (3-11); Aspartate Aminotransferase 16 U/L (13-39); BUN Creatinine Ratio 29.9 (10-20); Blood Urea Nitrogen 23 mg/dl (6-23); Calcium 8.3 mg/dl (8.6-10.3); Carbon Dioxide 27 mmol/L (21-32); Chloride 102 mmol/L (98-107); Est GFR (African American) 97.9 ml/min; Est GFR (Non-African American) 84.5 ml/min; Globulin 3.4 gm/dl (2.5-4.0); Glucose 105 mg/dl (70-99(Fasting)); Magnesium 1.8 mg/dl (1.7-2.4); Potassium 3.8 mmol/L (3.5-5.1); Sodium 136 mmol/L (136-145); Total Protein 6.3 gm/dl (6.0-8.3)
[2023-08-31 12:02] LABS: Troponin I High Sensitivity 11.4 pg/ml (0-20)
[2023-08-31 12:05] LABS: Basophils # (auto) 0.04 K/uL (0.00-0.20); Basophils % (auto) 0.1 %; Immature Granulocytes # (auto) 0.41 K/uL (0.01-0.20); Immature Granulocytes % (auto) 1.3 %; Lymphocytes # (auto) 0.91 K/uL (1.20-3.40); Lymphocytes % (auto) 2.9 %; Monocytes # (auto) 1.21 K/uL (0.11-0.59); Monocytes % (auto) 3.9 %; Neutrophils # (auto) 28.59 K/uL (1.40-6.50); Neutrophils % (auto) 91.8 %; Ovalocytes 1+; Polychromasia 1+
[2023-08-31] MEDS ORDERED: SODIUM CHLORIDE 0.9% 1,000 ML IV ONE (12:09)
[2023-08-31 12:10] LABS: INR 1.2 (0.9-1.1); Partial Thromboplastin Time 29 Seconds (21-31); Prothrombin Time 13.4 Seconds (9.0-12.0)
[2023-08-31 12:12] LABS: Thyroid Stimulating Hormone 2.181 uIu/ml (0.300-4.500)
--- NOTE | 2023-08-31 12:12 | Emergency Department Note ---
Impression & Plan Acute cholecystitis, Fluid overload, Elevated WBC count ED Provider Note Name: CAYDEN RAHMAN Age: 83 Sex: Male Arrives Via: Ambulance Informant: Patient, EMS ED Provider: Shay York MD Chief Complaint: Weakness Impression: As per impressions above Medical Decision Making: Pleasant 83-year-old gentleman arrives to the ER for rapidly worsening weakness and increasing swelling in his legs over the last 24 hours. Notes he is too weak to even get around and feels very tired. Other than noting some mild abdominal pain earlier patient denies any other concerning symptoms. Patient did note COVID infection 2 weeks ago. No new runny nose fevers chills cough or shortness of breath. Given previous abdominal pain as well as some mild tenderness to palpation in right upper quadrant CT scan of the ab pelvis was ordered. During this labs did return elevated white blood cell count at 33. Blood cultures lactic acid added on. Patient was given 1 L normal saline bolus IV. He is however at risk of fluid overload thus we will hold off on further fluids and will not give 30/kg IV fluids. That said there is no clear evidence of severe sepsis beyond his elevated white blood cell count. His procalcitonin is only mildly elevated. He does not have a severely elevated lactic acid either. He was given empiric IV antibiotics for management of acute cholecystitis seen on CT. I did discuss the CT findings with radiology who noted it is very difficult to state whether this is perforated cholecystitis versus just some fluid around the gallbladder but it almost appears loculated. Reviewed with general surgery who note start IV antibiotics plan to bring in for monitoring and will evaluate for possible surgery over the next 24 hours. Patient reevaluated multiple times he has a soft abdomen he has no other complaints after IV fluids and tolerated them decently well. Hospitalist then to see further. Triage/Nursing Notes reviewed by Me Differential:Infection, dehydration, metabolic abnormality, hypo/hyperglycemia, electrolyte disturbance, anemia, hypoxia, cardiac sources, intracerebral event, toxicologic, neurologic, as well as other pathologies. Vital Signs: reviewed and remarkable for mild tachycardia on arrival Interventions: Zosyn 4.5 g IV, normal saline bolus 1 L IV. Patient was not given 30 mg/kg IV fluids as there is concern for fluid overload. Instead he was given 1 L normal saline bolus IV. Labs:ED labs Reviewed by me and remarkable for severely elevated white blood cell count. Procalcitonin 0.77. Other laboratory workup is relatively unremarkable. Patient is COVID-19 positive. He was +2 weeks ago I feel that this is likely just continued positive as he has no current shortness of breath, runny nose, viral illness symptoms other than weakness which can be attributed to his cholecystitis Imaging:CT of the abdomen pelvis with IV contrast as per my informal interpretation shows evidence of acute cholecystitis. No free air or obstruction appreciated. Confirm a radiologist to note concern for possible perforated acute cholecystitis with free fluid throughout the gallbladder fossa. See the report for full and other findings. EKG:As per my interpretation. Indication weakness. A-fib with heart rate of 95 bpm QTc of 467. There is no ischemia appreciated. When compared to EKG of August 21, 2023 no significant change appreciated other than poor baseline. Cardiac/Tele Monitoring: Cardiac Monitoring: An Order was placed for continuous cardiac monitoring. The monitor shows a rate of 90 with a afib rhythm. Consults:Dr. Marty Zendejas general surgery. Patient should be admitted to hospital service and he will follow along. Dr. Ramey of the [facility] hospitalist service. Will admit patient for further management. Plan: Disposition:Hospitalization. Condition: Good History of Present Illness: 83-year-old gentleman arrives for evaluation of weakness. Patient was hospitalized last week for a GI bleed. Has been off his anticoagulant following EGD. States has been feeling well up until yesterday. Developed worsening generalized weakness fatigue. Notes he was so weak he could not stand up. Associated with some increased swelling of bilateral lower legs. Denies any shortness of breath. States he has not had much of an appetite and feels very dehydrated. Did note that his abdomen was hurting him earlier today but that seems to have resolved. Denies any chest pain, shortness of breath, fevers, chills, back pain, rashes, headache, neck pain, sore throat or other concerning signs or symptoms. No new medications today. States he is too weak to go home. Past Medical History:See Below Home Medications:See Below Allergies:See Below Vitals:Blood Pressure: 109/65, Pulse 114, RR 18, T 36.7C, O2 93% on RA Physical Exam: GENERAL: Patient is unwell and dehydrated appearing and in mild distress. A bit pale appearing RESPIRATORY: Mild tachypnea with some mild crackles at bases otherwise clear no wheezing. CARDIOVASCULAR: Tachycardia irregular.No murmur appreciated. GASTROINTESTINAL: Abdomen is soft. He has some mild right upper quadrant tenderness palpation. There is no peritonitis and patient is in really no distress with abdominal exam. BACK: No midline tenderness, no CVA tenderness EXTREMITIES: Normal motion all extremities, no cyanosis, moderate bilateral lower leg edema mildly pitting. NEUROLOGIC: Alert and oriented. No focal neurologic deficits appreciated SKIN: No rash, no jaundice, no diaphoresis. PSYCH: Appropriate GCS: 15 ED Course: Times/Reassessments: Patient feels better after 1 L normal saline. No respiratory distress but given improvement in heart rate and blood pressure stable we will hold off on further fluids. Shay York MD Past Med/Surg History Medical History (Updated 08/31/23 @ 17:15 by Shay York MD) Persistent atrial fibrillation Arthritis Anemia Cataract RT EYE (LEFT EYE CATARACT REMOVED) Seasonal allergies Left-sided tinnitus Left asymmetrical SNHL AF (paroxysmal atrial fibrillation) FOLLOWED BY [facility] Hyperlipidemia Benign essential hypertension Surgical History History of tooth extraction History of cataract surgery LEFT H/O elbow surgery LEFT x4 H/O arthroscopy of knee RIGHT x3 , LEFT x1 H/O arthroscopy of shoulder RT Family History Father Coronary heart disease Myocardial infarction Brother Cancer, Onset Age: 63 Lung cancer met to brain @ age 67 Sister Cancer, Onset Age: 60 unknown primary Sister No problems noted. Other No family history of adverse response to anesthesia No family history of bleeding disorder Denies family history of Ovarian cancer Prostate cancer Breast cancer Colorectal cancer Social History Smoking Status: Never smoker Tobacco Type: Cigarettes Age Started Using Tobacco: 19; Age Quit Using Tobacco: 41; packs per day: 1; Second Hand Exposure: No; Do You Dip or Chew Tobacco: No; Hx Alcohol Use: No Hx Substance Use: No Preferred Language: Bulgarian Communication Ability: Effective Visual Impairment: No Limitations Hearing Ability: Normal Echo Vascular Tech Required: No Beliefs That Will Affect Care: None marital status: Current Living Situation: Spouse Current Living Situation Comment: Independant Living highrise current occupational status: retired 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 Feels Safe at Home: Yes Childhood Exposure to Second-Hand Smoke: Yes caffeine: Yes during the past year weight has: remained stable Dental Care, Regularly: Yes Physical Activity Frequency: Daily Physical Activity Frequency Comment: walking Seatbelt Use: always Sunscreen Use: Yes Do you think of yourself as: straight/heterosexual Assistive Devices: Walker Allergies Allergies Allergy/AdvReac Type Severity Reaction Status Date / Time pravastatin Allergy Intermediate myalgias Verified 08/31/23 14:27 TRACI Inhibitors Allergy Mild Cough Verified 08/31/23 14:27 adhesive Allergy Mild skin Verified 08/31/23 14:27 irritation latex Allergy Mild SKIN Verified 08/31/23 14:27 IRRIATION lisinopril Allergy Mild Cough Verified 08/31/23 14:27 furosemide [From Lasix] AdvReac Mild Rash Verified 08/31/23 14:27 Home Meds Home Medications Medication Instructions Recorded Confirmed rosuvastatin 5 mg tablet 5 mg PO [id number] 05/02/23 08/31/23 albuterol sulfate 90 mcg/actuation 2 puff inhalation Q6H PRN sob 08/31/23 08/31/23 aerosol inhaler apixaban 5 mg tablet (Eliquis) 0 mg PO BID 08/31/23 08/31/23 Previous Rx's Medication Instructions Recorded fluticasone propionate 50 1 spray intranasal BID #3 ea 05/03/23 mcg/actuation nasal spray,suspension verapamil 240 mg 24 hr 240 mg PO BID #180 caps 05/11/23 capsule,extended release cyanocobalamin (vitamin B-12) 1,000 mcg PO DAILY #90 tabs 08/26/23 1,000 mcg tablet metoprolol tartrate 25 mg tablet 12.5 mg (1/2 x 25 mg) PO BID #60 08/26/23 tabs pantoprazole 40 mg tablet,delayed 40 mg PO BID #60 tabs 08/26/23 release Results & Data (ED) Vital Signs Vital Signs - 24 hr 08/31/23 10:38 08/31/23 12:23 08/31/23 13:25 Temperature 36.7 C Temperature Source Temporal Artery Scan Pulse Rate 114 H 87 Pulse Rate [Apical] Respiratory Rate 18 Respiratory Effort / Characteristics Non-Labored Spontaneous Respiratory Depth Normal Respiratory Pattern Regular Blood Pressure 109/65 Blood Pressure [Left Arm] Blood Pressure Mean 79 Blood Pressure Mean [Left Arm] Blood Pressure Position Sitting Blood Pressure Position [Left Arm] Pulse Oximetry 93 92 Oxygen Delivery Method Room Air Room Air Sepsis Recent Fever Within 48 Hours No Sepsis New/Unexplained Change in Mental Status No Sepsis Action Taken by Nursing No Action Required 08/31/23 13:25 08/31/23 13:25 08/31/23 15:00 Temperature Temperature Source Pulse Rate 89 Pulse Rate [Apical] 91 H 79 Respiratory Rate 18 16 18 Respiratory Effort / Characteristics Non-Labored Spontaneous Respiratory Depth Normal Respiratory Pattern Regular Blood Pressure Blood Pressure [Left Arm] 125/67 123/70 Blood Pressure Mean Blood Pressure Mean [Left Arm] 86 87 Blood Pressure Position Blood Pressure Position [Left Arm] Sitting Pulse Oximetry 92 92 93 Oxygen Delivery Method Room Air Room Air Room Air Sepsis Recent Fever Within 48 Hours Sepsis New/Unexplained Change in Mental Status Sepsis Action Taken by Nursing Laboratory Data 08/31/23 11:10 08/31/23 11:10 Lab Results 08/31/23 08/31/23 08/31/23 Range/Units 11:10 11:53 12:20 WBC 31.16 H* (4.8-10.8) K/ul RBC 3.67 L (4.70-6.10) M/uL Hgb 10.1 L (14.0-18.0) g/dl Hct 32.1 L (42.0-52.0) % MCV 87.5 (80.0-100.0) fL MCH 27.5 (25.0-34.0) pg MCHC 31.5 L (32.0-36.0) g/dL RDW Std Deviation 52.2 H (36.4-46.3) fL RDW Coeff of [place] 17.1 H (11.5-14.5) % Plt Count 514 H (130-400) K/uL MPV 9.1 L (9.4-12.4) fL Immature Gran % (Auto) 1.3 % Neut % (Auto) 91.8 % Lymph % (Auto) 2.9 % [place] % (Auto) 3.9 % Eos % (Auto) 0.0 % Baso % (Auto) 0.1 % Neut # (Auto) 28.59 H (1.40-6.50) K/uL Lymph # (Auto) 0.91 L (1.20-3.40) K/uL [place] # (Auto) 1.21 H (0.11-0.59) K/uL Eos # (Auto) 0.00 (0.00-0.50) K/uL Baso # (Auto) 0.04 (0.00-0.20) K/uL Immature Gran # (Auto) 0.41 H (0.01-0.20) K/uL Polychromasia 1+ Ovalocytes 1+ PT 13.4 H (9.0-12.0) Seconds INR 1.2 H (0.9-1.1) APTT 29 (21-31) Seconds PTT Ratio 1.0 Sodium 136 (136-145) mmol/L Potassium 3.8 (3.5-5.1) mmol/L Chloride 102 (98-107) mmol/L Carbon Dioxide 27 (21-32) mmol/L Anion Gap 7 (3-11) BUN 23 (6-23) mg/dl Creatinine 0.77 (0.6-1.4) mg/dl Est Cr Clr Drug Dosing Not Reportable Est GFR ( Amer) 97.9 ml/min Est GFR (Non-Af Amer) 84.5 ml/min BUN/Creatinine Ratio 29.9 H (10-20) Glucose 105 H (70-99(Fasting)) mg/dl Lactate 1.9 (0.4-2.0) mmol/L Calcium 8.3 L (8.6-10.3) mg/dl Magnesium 1.8 (1.7-2.4) mg/dl Total Bilirubin 1.0 (0.2-1.0) mg/dl AST 16 (13-39) U/L ALT 15 (7-52) U/L Alkaline Phosphatase 84 (34-104) U/L Troponin I High Sens 11.4 (0-20) pg/ml B-Natriuretic Peptide (0-100) pg/ml Total Protein 6.3 (6.0-8.3) gm/dl Albumin 2.9 L (3.4-5.0) gm/dl Globulin 3.4 (2.5-4.0) gm/dl Albumin/Globulin Ratio 0.9 (0.9-2) Procalcitonin 0.77 H (0-0.5) ng/ml TSH 2.181 (0.300-4.500) uIu/ml Urine Color Urine Appearance (Clear) Urine pH (4.5-7.5) Ur Specific [place] (1.000-1.030) Urine Protein (Negative) Urine Glucose (UA) (Negative) Urine Ketones (Negative) Urine Blood (Negative) Urine Nitrite (Negative) Urine Bilirubin (Negative) Urine Urobilinogen (Negative) Ur Leukocyte Esterase (Negative) Urine WBC (Auto) (0-5) /hpf Urine RBC (Auto) (0-4) /hpf U Hyaline Cast (Auto) (0-5) /lpf U Epithel Cells (Auto) (0-5) /lpf Urine Bacteria (Auto) (Negative) SARS-CoV-2 (PCR) POSITIVE A* (Negative) Influenza Type A (PCR) Negative (Neg) Influenza Type B (PCR) Negative (Neg) RSV (RT-PCR) Negative (Neg) 08/31/23 08/31/23 Range/Units 13:00 15:15 WBC (4.8-10.8) K/ul RBC (4.70-6.10) M/uL Hgb (14.0-18.0) g/dl Hct (42.0-52.0) % MCV (80.0-100.0) fL MCH (25.0-34.0) pg MCHC (32.0-36.0) g/dL RDW Std Deviation (36.4-46.3) fL RDW Coeff of [place] (11.5-14.5) % Plt Count (130-400) K/uL MPV (9.4-12.4) fL Immature Gran % (Auto) % Neut % (Auto) % Lymph % (Auto) % [place] % (Auto) % Eos % (Auto) % Baso % (Auto) % Neut # (Auto) (1.40-6.50) K/uL Lymph # (Auto) (1.20-3.40) K/uL [place] # (Auto) (0.11-0.59) K/uL Eos # (Auto) (0.00-0.50) K/uL Baso # (Auto) (0.00-0.20) K/uL Immature Gran # (Auto) (0.01-0.20) K/uL Polychromasia Ovalocytes PT (9.0-12.0) Seconds INR (0.9-1.1) APTT (21-31) Seconds PTT Ratio Sodium (136-145) mmol/L Potassium (3.5-5.1) mmol/L Chloride (98-107) mmol/L Carbon Dioxide (21-32) mmol/L Anion Gap (3-11) BUN (6-23) mg/dl Creatinine (0.6-1.4) mg/dl Est Cr Clr Drug Dosing Est GFR ( Amer) ml/min Est GFR (Non-Af Amer) ml/min BUN/Creatinine Ratio (10-20) Glucose (70-99(Fasting)) mg/dl Lactate (0.4-2.0) mmol/L Calcium (8.6-10.3) mg/dl Magnesium (1.7-2.4) mg/dl Total Bilirubin (0.2-1.0) mg/dl AST (13-39) U/L ALT (7-52) U/L Alkaline Phosphatase (34-104) U/L Troponin I High Sens (0-20) pg/ml B-Natriuretic Peptide 425 H (0-100) pg/ml Total Protein (6.0-8.3) gm/dl Albumin (3.4-5.0) gm/dl Globulin (2.5-4.0) gm/dl Albumin/Globulin Ratio (0.9-2) Procalcitonin (0-0.5) ng/ml TSH (0.300-4.500) uIu/ml Urine Color Yellow Urine Appearance Clear (Clear) Urine pH 5.5 (4.5-7.5) Ur Specific [place] > 1.045 H (1.000-1.030) Urine Protein Trace H (Negative) Urine Glucose (UA) Negative (Negative) Urine Ketones Negative (Negative) Urine Blood Negative (Negative) Urine Nitrite Negative (Negative) Urine Bilirubin Negative (Negative) Urine Urobilinogen Negative (Negative) Ur Leukocyte Esterase Negative (Negative) Urine WBC (Auto) 1-5 (0-5) /hpf Urine RBC (Auto) 0-4 (0-4) /hpf U Hyaline Cast (Auto) 1-5 (0-5) /lpf U Epithel Cells (Auto) 10-20 H (0-5) /lpf Urine Bacteria (Auto) Negative (Negative) SARS-CoV-2 (PCR) (Negative) Influenza Type A (PCR) (Neg) Influenza Type B (PCR) (Neg) RSV (RT-PCR) (Neg) Administered Medications Discontinued Medications Sodium Chloride (Nss) 1,000 mls @ 999 mls/hr IV .Q1H1M ONE Stop: 08/31/23 13:09 Last Infusion: 08/31/23 15:29 Dose: Infused Documented By: Admin: 08/31/23 13:30 Dose: 999 mls/hr Documented By: WGYN Piperacillin Sod/Tazobactam Sod (Zosyn) 4.5 gm in 100 mls @ 200 mls/hr IV NOW ONE Stop: 08/31/23 13:23 Last Infusion: 08/31/23 15:28 Dose: Infused Documented By: Admin: 08/31/23 13:30 Dose: 200 mls/hr Documented By: GWYN Albumin Human (Albumin 25%) 25 gm in 100 mls @ 50 mls/hr IV ONE ONE Stop: 08/31/23 16:14 Last Admin: 08/31/23 14:44 Dose: 50 mls/hr Documented By: KIRK Ioversol (Optiray 320 500ml) 90 ml IV ONCE ONE Stop: 08/31/23 12:48 Last Admin: 08/31/23 12:47 Dose: 90 ml Documented By: PRESLEY Imaging Data Radiologist's Impression: Chest X-Ray 08/31/23 10:41 SINGLE VIEW CHEST CLINICAL HISTORY: Generalized weakness. FINDINGS: 2 AP upright chest radiographs are compared to study dated 08/23/2023. The heart is enlarged noting atherosclerotic calcification of the thoracic aorta. The pulmonary vasculature is not congested. There is elevation of the right hemidiaphragm. Small pleural effusions are suspected with dependent atelectasis. No pneumothorax is seen. The skeletal structures are osteopenic. The bony thorax is grossly intact. IMPRESSION: 1. Cardiomegaly without radiographic evidence of congestive failure. 2. Suspect small pleural effusion. ACT 112: Negative or not required by law. Electronically signed by: Scooter Ryder M.D. 08/31/2023 11:05 AM Abdomen/Pelvis CT 08/31/23 12:09 CT OF THE ABDOMEN AND PELVIS WITH CONTRAST CLINICAL HISTORY: Abdominal discomfort, elevated WBC. COMPARISON STUDY: Right upper quadrant ultrasound August 22, 2023. TECHNIQUE: Following IV administration of 90 mL of Optiray, axial images of the abdomen and pelvis were obtained from the lung bases to the proximal femurs. Images were reviewed in the axial, sagittal, and coronal planes. IV contrast was administered without complication. Automated exposure control was utilized for the study. A dose lowering technique was utilized adhering to the principles of ALARA. CT DOSE: 1102.86 mGy.cm FINDINGS: Small right and trace left pleural effusions are noted. Right lower lobe opacity favors atelectasis. No pneumatosis, free air or portal venous gas is present. Nodularity of the liver surface indicates cirrhosis. Several subcentimeter hypodense hepatic lesions are too small to characterize. There is no biliary or pancreatic ductal dilatation. There is moderate pericholecystic fluid and stranding. In addition, there is loculated moderate perihepatic fluid extending into the right paracolic gutter with associated peritoneal enhancement. There is slight scalloping of the liver surface. Possible discontinuity within the gallbladder fundus is noted. The gallbladder is not significantly distended. There is mild mucosal enhancement of the gallbladder wall which appears slightly irregular. Spleen, adrenal glands and kidneys are unremarkable. Is no hydronephrosis. Wall thickening of the ascending colon is noted. This is probably reactive, secondary to the process within the right upper quadrant. There is no evidence for a bowel obstruction. There is a small amount of presacral fluid. Colonic diverticulosis is present without evidence for acute diverticulitis. The appendix is normal. A left inguinal hernia contains a small amount of fluid with peritoneal thickening. There is asymmetric wall thickening of the left anterior aspect of the bladder wall. IMPRESSION: 1. Moderate pericholecystic fluid and stranding with irregularity of the gallbladder wall. The findings are suspicious for acute cholecystitis, possibly perforated, given contiguous moderate perihepatic loculated fluid which extends into the paracolic gutter. Peritoneal enhancement. The findings could be correlated with clinical evidence for peritonitis. 2. Wall thickening of the ascending colon. This is likely secondary to the inflammatory process within the right upper quadrant. Colitis could appear similar although is considered less likely. No bowel obstruction. 3. Small right and trace left pleural effusions. 4. Cirrhotic liver. 5. Asymmetric wall thickening of the left anterior bladder wall. This is nonspecific and correlation with cystoscopy is recommended. 6. Left inguinal hernia which contains a small amount of fluid. ACT 112: Positive. There are findings on this exam that require communication between the performing entity and the patient following Patient Test Result Information Act ([place] Act 112) guidelines. Electronically signed by: Ifeanyi Correa M.D. 08/31/2023 1:20 PM Discharge Plan Visit Data Chief Complaint: Weakness ED Provider: Shay York Discharge Problem: Acute cholecystitis, Fluid overload, Elevated WBC count Forms Stand Alone Forms: My [facility] NGDATA Prescriptions Prescriptions: No Action fluticasone propionate 50 mcg/actuation spray,suspension 1 spray intranasal BID Qty: 3 3RF verapamil 240 mg capsule,ext rel. pellets 24 hr 240 mg PO BID Qty: 180 3RF rosuvastatin 5 mg tablet 5 mg PO [id number] Rx Instructions: 5 mg PO every Tue, tue and tuesday metoprolol tartrate 25 mg Tablet 12.5 mg PO BID Qty: 60 2RF cyanocobalamin (vitamin B-12) 1,000 mcg tablet 1,000 mcg PO DAILY Qty: 90 3RF pantoprazole 40 mg tablet,delayed release (DR/EC) 40 mg PO BID Qty: 60 2RF Eliquis 5 mg tablet 0 mg PO BID Rx Instructions: Currently on hold until further notice per Spouse due to GI bleed. Original directions: 5mg by mouth twice daily. 08/31/23 albuterol sulfate 90 mcg/actuation HFA aerosol inhaler 2 puff INHALATION Q6H PRN (Reason: sob) Referrals Referrals: Mihir Cai MD [Primary Care Provider] - Discharge Problem: Fluid overload Qualifiers: Hypervolemia type: other Qualified Code(s): E87.79 - Other fluid overload Elevated WBC count Qualifiers: Leukocytosis type: other Qualified Code(s): D72.828 - Other elevated white blood cell count
[2023-08-31] MEDS ORDERED: OPTIRAY 320 500ml IV ONE (12:47)
[2023-08-31 12:51] LABS: Influenza A virus by PCR Negative (Neg); Influenza B virus by PCR Negative (Neg); RSV by PCR Negative (Neg)
[2023-08-31] MEDS ORDERED: PIPERACILLIN/TAZOBACTAM 4.5 GM/100 ML BAG IV ONE (12:54)
[2023-08-31 13:06] LABS: SARS CoV2 RNA(COVID-19) Ceph POSITIVE (Negative)
--- NOTE | 2023-08-31 13:21 | CT Scan Report ---
CT OF THE ABDOMEN AND PELVIS WITH CONTRAST CLINICAL HISTORY: Abdominal discomfort, elevated WBC. COMPARISON STUDY: Right upper quadrant ultrasound August 22, 2023. TECHNIQUE: Following IV administration of 90 mL of Optiray, axial images of the abdomen and pelvis we re obtained from the lung bases to the proximal femurs. Images were reviewed in the axial, sagittal, and coronal planes. IV contrast was administered without complication. Automated exposure control wa s utilized for the study. A dose lowering technique was utilized adhering to the principles of ALARA . CT DOSE: 1102.86 mGy.cm FINDINGS: Small right and trace left pleural effusions are noted. Right lower lobe opacity favors ate lectasis. No pneumatosis, free air or portal venous gas is present. Nodularity of the liver surface i ndicates cirrhosis. Several subcentimeter hypodense hepatic lesions are too small to characterize. Th ere is no biliary or pancreatic ductal dilatation. There is moderate pericholecystic fluid and strand ing. In addition, there is loculated moderate perihepatic fluid extending into the right paracolic gu tter with associated peritoneal enhancement. There is slight scalloping of the liver surface. Possibl e discontinuity within the gallbladder fundus is noted. The gallbladder is not significantly distende d. There is mild mucosal enhancement of the gallbladder wall which appears slightly irregular. Spleen , adrenal glands and kidneys are unremarkable. Is no hydronephrosis. Wall thickening of the ascending colon is noted. This is probably reactive, secondary to the process within the right upper quadrant. There is no evidence for a bowel obstruction. There is a small amount of presacral fluid. Colonic di verticulosis is present without evidence for acute diverticulitis. The appendix is normal. A left ing uinal hernia contains a small amount of fluid with peritoneal thickening. There is asymmetric wall th ickening of the left anterior aspect of the bladder wall. IMPRESSION: 1. Moderate pericholecystic fluid and stranding with irregularity of the gallbladder wall. The findin gs are suspicious for acute cholecystitis, possibly perforated, given contiguous moderate perihepatic loculated fluid which extends into the paracolic gutter. Peritoneal enhancement. The findings could be correlated with clinical evidence for peritonitis. 2. Wall thickening of the ascending colon. This is likely secondary to the inflammatory process withi n the right upper quadrant. Colitis could appear similar although is considered less likely. No bowel obstruction. 3. Small right and trace left pleural effusions. 4. Cirrhotic liver. 5. Asymmetric wall thickening of the left anterior bladder wall. This is nonspecific and correlation with cystoscopy is recommended. 6. Left inguinal hernia which contains a small amount of fluid. ACT 112: Positive. There are findings on this exam that require communication between the performing entity and the patient following Patient Test Result Information Act ([place] Act 112) guidelines. Electronically signed by: Ifeanyi Correa M.D. 08/31/2023 1:20 PM
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
[2023-08-31] MEDS ORDERED: ALBUMIN 25% 25 GM/100 ML VIAL IV ONE (14:15)
--- NOTE | 2023-08-31 15:18 | Electrocardiogram Report ---
Test Reason : Blood Pressure : / mmHG Vent. Rate : 095 BPM Atrial Rate : 000 BPM P-R Int : 000 ms QRS Dur : 072 ms QT Int : 372 ms P-R-T Axes : 000 018 010 degrees QTc Int : 467 ms Atrial fibrillation Abnormal ECG When compared with ECG of 21-AUG-2023 15:47, Nonspecific T wave abnormality now evident in Inferior leads Confirmed by Osman Markham ([id number]) on 08/31/2023 3:18:15 PM Referred By: Confirmed By:Mihir Markham
--- NOTE | 2023-08-31 15:35 | History & Physical Report ---
Date of Service August 31, 2023 Assessment & Plan (1) Acute cholecystitis: (2) AF (paroxysmal atrial fibrillation): (3) Chronic venous insufficiency: (4) Chronic anticoagulation: (5) COVID-19: (6) Fluid overload: Plan Acute cholecystitis- Radiology reports that perforation cannot be ruled out Patient does not have significant abdominal pain or rebound tenderness to suggest peritonitis NPO Continue Zosyn 4.5 g IV every 8 hours begun in ED Zofran 4 mg IV every 6 hours as needed Pantoprazole 40 mg IV daily NSS + KCl 20 mill equivalents at 60 mL/h Surgical consult did see patient while in the ED reports plan for surgery tomorrow Lower extremity edema/chronic venous insufficiency- Given albumin 25 g IV x 1 Status post 1 L normal saline in ED Since patient is n.p.o., he will get low-dose IV fluids as noted above, monitoring for excessive accumulation Paroxysmal atrial fibrillation- Continue metoprolol tartrate 12.5 mg p.o. twice daily Hold verapamil 240 mg p.o. twice daily Hold Eliquis Liver cirrhosis/esophageal varices- Normal LFTs, and no signs of bleeding Pantoprazole 40 mg IV daily History of Present Illness Chief Complaint: The patient presents to the emergency department with complaint of generalized fatigue, lower extremity swelling, and progressive weakness over the past 24 hours. Primary Care Provider: Mihir Cai MD The patient is a 83-year-old male with a past medical history including COVID-19 infection 2 weeks ago, esophageal varices, history of upper GI bleed, history of acute blood loss anemia, chronic anticoagulation, chronic venous insufficiency, paroxysmal atrial fibrillation, hyperlipidemia and hypertension. The patient presents to the emergency department with worsening generalized weakness, fatigue and increased swelling in legs over the past 24 hours. He reports decreased overall appetite for the past few days Allergies Allergy/AdvReac Type Severity Reaction Status Date / Time pravastatin Allergy Intermediate myalgias Verified 08/31/23 14:27 TRACI Inhibitors Allergy Mild Cough Verified 08/31/23 14:27 adhesive Allergy Mild skin Verified 08/31/23 14:27 irritation latex Allergy Mild SKIN Verified 08/31/23 14:27 IRRIATION lisinopril Allergy Mild Cough Verified 08/31/23 14:27 furosemide [From Lasix] AdvReac Mild Rash Verified 08/31/23 14:27 Home Medications Medication Instructions Recorded Confirmed Type rosuvastatin 5 mg tablet 5 mg PO [id number] 05/02/23 08/31/23 History fluticasone propionate 50 1 spray intranasal BID #3 ea 05/03/23 08/31/23 Rx mcg/actuation nasal spray,suspension verapamil 240 mg 24 hr 240 mg PO BID #180 caps 05/11/23 08/31/23 Rx capsule,extended release cyanocobalamin (vitamin B-12) 1,000 mcg PO DAILY #90 tabs 08/26/23 08/31/23 Rx 1,000 mcg tablet metoprolol tartrate 25 mg tablet 12.5 mg (1/2 x 25 mg) PO BID #60 08/26/23 08/31/23 Rx tabs pantoprazole 40 mg tablet,delayed 40 mg PO BID #60 tabs 08/26/23 08/31/23 Rx release albuterol sulfate 90 mcg/actuation 2 puff inhalation Q6H PRN sob 08/31/23 08/31/23 History aerosol inhaler apixaban 5 mg tablet (Eliquis) 0 mg PO BID 08/31/23 08/31/23 History Past Med/Surg History Medical History (Updated 08/31/23 @ 17:15 by Shay York MD) Persistent atrial fibrillation Arthritis Anemia Cataract RT EYE (LEFT EYE CATARACT REMOVED) Seasonal allergies Left-sided tinnitus Left asymmetrical SNHL AF (paroxysmal atrial fibrillation) FOLLOWED BY [facility] Hyperlipidemia Benign essential hypertension Surgical History History of tooth extraction History of cataract surgery LEFT H/O elbow surgery LEFT x4 H/O arthroscopy of knee RIGHT x3 , LEFT x1 H/O arthroscopy of shoulder RT Family History Father Coronary heart disease Myocardial infarction Brother Cancer, Onset Age: 63 Lung cancer met to brain @ age 67 Sister Cancer, Onset Age: 60 unknown primary Sister No problems noted. 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 Required: No Beliefs That Will Affect Care: None marital status: Current Living Situation: Spouse Current Living Situation Comment: Independant Living highrise current occupational status: retired current occupation: Retired [employer] other: former Feels Safe at Home: Yes Childhood Exposure to Second-Hand Smoke: Yes caffeine: Yes during the past year weight has: remained stable Dental Care, Regularly: Yes Physical Activity Frequency: Daily Physical Activity Frequency Comment: walking Seatbelt Use: always Sunscreen Use: Yes Do you think of yourself as: straight/heterosexual Assistive Devices: Glasses Review of Systems Review of Systems: The patient denies chest pain, palpitations, cough, sore throat, chills, sweats, weight change, fatigue, nausea, vomiting, diarrhea , constipation, blood in urine or stool, dysuria, urinary frequency or urgency, lightheadedness, dizziness, headache, memory loss, loss of consciousness, rash, abnormal bruising or bleeding, focal weakness, numbness or tingling in arms or legs, generalized arthralgias or myalgias, back or neck pain, or night sweats. The review of systems is otherwise negative other than for that already noted above, and at least 10 systems have been reviewed. Physical Exam Physical Exam: The patient is awake, alert and oriented 3, well developed and well nourished, normocephalic and atraumatic, lying in bed and in no acute distress. HEENT--PERRL, EOMI, mucous membranes and oropharynx mildly dry. Neck--supple. No JVD. No bruits. Thyroid normal, trachea midline, no adenopathy. Heart--normal S1 and S2. No murmurs, rubs or gallops. Lungs--clear bilaterally, no respiratory distress, no accessory muscle use. Abdomen--normal bowel sounds and soft. Mild right upper quadrant tenderness, nondistended. Extremities--no cyanosis or clubbing. No edema. Dermatologic--normal skin turgor, normal color, no abnormal lymph nodes, no rash. Neurologic--cranial nerves II through XII grossly intact. Rheumatologic--normal range of motion. Psychiatric--normal affect. Results & Data Results & Data Vital Signs (Past 12 Hours) Vital Signs Temp Pulse Pulse Resp BP BP Pulse Ox 08/31/23 15:00 79 18 123/70 93 08/31/23 13:25 89 16 92 08/31/23 13:25 91 H 18 125/67 92 08/31/23 13:25 92 08/31/23 12:23 87 08/31/23 10:38 36.7 C 114 H 18 109/65 93 O2 Del Method 08/31/23 15:00 Room Air 08/31/23 13:25 Room Air 08/31/23 13:25 Room Air 08/31/23 13:25 Room Air 08/31/23 12:23 08/31/23 10:38 Room Air Laboratory Results Laboratory Results WBC 31.16 K/ul (4.8-10.8) H* 08/31/23 11:10 RBC 3.67 M/uL (4.70-6.10) L 08/31/23 11:10 Hgb 10.1 g/dl (14.0-18.0) L 08/31/23 11:10 Hct 32.1 % (42.0-52.0) L 08/31/23 11:10 MCV 87.5 fL (80.0-100.0) 08/31/23 11:10 MCH 27.5 pg (25.0-34.0) 08/31/23 11:10 MCHC 31.5 g/dL (32.0-36.0) L 08/31/23 11:10 RDW Std Deviation 52.2 fL (36.4-46.3) H 08/31/23 11:10 RDW Coeff of [place] 17.1 % (11.5-14.5) H 08/31/23 11:10 Plt Count 514 K/uL (130-400) H 08/31/23 11:10 MPV 9.1 fL (9.4-12.4) L 08/31/23 11:10 Immature Gran % (Auto) 1.3 % 08/31/23 11:10 Neut % (Auto) 91.8 % 08/31/23 11:10 Lymph % (Auto) 2.9 % 08/31/23 11:10 [place] % (Auto) 3.9 % 08/31/23 11:10 Eos % (Auto) 0.0 % 08/31/23 11:10 Baso % (Auto) 0.1 % 08/31/23 11:10 Neut # (Auto) 28.59 K/uL (1.40-6.50) H 08/31/23 11:10 Lymph # (Auto) 0.91 K/uL (1.20-3.40) L 08/31/23 11:10 [place] # (Auto) 1.21 K/uL (0.11-0.59) H 08/31/23 11:10 Eos # (Auto) 0.00 K/uL (0.00-0.50) 08/31/23 11:10 Baso # (Auto) 0.04 K/uL (0.00-0.20) 08/31/23 11:10 Immature Gran # (Auto) 0.41 K/uL (0.01-0.20) H 08/31/23 11:10 Polychromasia 1+ 08/31/23 11:10 Ovalocytes 1+ 08/31/23 11:10 PT 13.4 Seconds (9.0-12.0) H 08/31/23 11:10 INR 1.2 (0.9-1.1) H 08/31/23 11:10 APTT 29 Seconds (21-31) 08/31/23 11:10 PTT Ratio 1.0 08/31/23 11:10 Sodium 136 mmol/L (136-145) 08/31/23 11:10 Potassium 3.8 mmol/L (3.5-5.1) 08/31/23 11:10 Chloride 102 mmol/L (98-107) 08/31/23 11:10 Carbon Dioxide 27 mmol/L (21-32) 08/31/23 11:10 Anion Gap 7 (3-11) 08/31/23 11:10 BUN 23 mg/dl (6-23) 08/31/23 11:10 Creatinine 0.77 mg/dl (0.6-1.4) 08/31/23 11:10 Est Cr Clr Drug Dosing Not Reportable 08/31/23 11:10 Est GFR ( Amer) 97.9 ml/min 08/31/23 11:10 Est GFR (Non-Af Amer) 84.5 ml/min 08/31/23 11:10 BUN/Creatinine Ratio 29.9 (10-20) H 08/31/23 11:10 Glucose 105 mg/dl (70-99(Fasting)) H 08/31/23 11:10 Lactate 1.9 mmol/L (0.4-2.0) 08/31/23 12:20 Calcium 8.3 mg/dl (8.6-10.3) L 08/31/23 11:10 Magnesium 1.8 mg/dl (1.7-2.4) 08/31/23 11:10 Total Bilirubin 1.0 mg/dl (0.2-1.0) 08/31/23 11:10 AST 16 U/L (13-39) 08/31/23 11:10 ALT 15 U/L (7-52) 08/31/23 11:10 Alkaline Phosphatase 84 U/L (34-104) 08/31/23 11:10 Troponin I High Sens 11.4 pg/ml (0-20) 08/31/23 11:10 B-Natriuretic Peptide 425 pg/ml (0-100) H 08/31/23 13:00 Total Protein 6.3 gm/dl (6.0-8.3) 08/31/23 11:10 Albumin 2.9 gm/dl (3.4-5.0) L 08/31/23 11:10 Globulin 3.4 gm/dl (2.5-4.0) 08/31/23 11:10 Albumin/Globulin Ratio 0.9 (0.9-2) 08/31/23 11:10 Procalcitonin 0.77 ng/ml (0-0.5) H 08/31/23 11:10 TSH 2.181 uIu/ml (0.300-4.500) 08/31/23 11:10 Urine Color Yellow 08/31/23 15:15 Urine Appearance Clear (Clear) 08/31/23 15:15 Urine pH 5.5 (4.5-7.5) 08/31/23 15:15 Ur Specific [place] > 1.045 (1.000-1.030) H 08/31/23 15:15 Urine Protein Trace (Negative) H 08/31/23 15:15 Urine Glucose (UA) Negative (Negative) 08/31/23 15:15 Urine Ketones Negative (Negative) 08/31/23 15:15 Urine Blood Negative (Negative) 08/31/23 15:15 Urine Nitrite Negative (Negative) 08/31/23 15:15 Urine Bilirubin Negative (Negative) 08/31/23 15:15 Urine Urobilinogen Negative (Negative) 08/31/23 15:15 Ur Leukocyte Esterase Negative (Negative) 08/31/23 15:15 Urine WBC (Auto) 1-5 /hpf (0-5) 08/31/23 15:15 Urine RBC (Auto) 0-4 /hpf (0-4) 08/31/23 15:15 U Hyaline Cast (Auto) 1-5 /lpf (0-5) 08/31/23 15:15 U Epithel Cells (Auto) 10-20 /lpf (0-5) H 08/31/23 15:15 Urine Bacteria (Auto) Negative (Negative) 08/31/23 15:15 SARS-CoV-2 (PCR) POSITIVE (Negative) A* 08/31/23 11:53 Influenza Type A (PCR) Negative (Neg) 08/31/23 11:53 Influenza Type B (PCR) Negative (Neg) 08/31/23 11:53 RSV (RT-PCR) Negative (Neg) 08/31/23 11:53 Impressions Chest X-Ray 08/31/23 10:41 SINGLE VIEW CHEST CLINICAL HISTORY: Generalized weakness. FINDINGS: 2 AP upright chest radiographs are compared to study dated 08/23/2023. The heart is enlarged noting atherosclerotic calcification of the thoracic aorta. The pulmonary vasculature is not congested. There is elevation of the right hemidiaphragm. Small pleural effusions are suspected with dependent atelectasis. No pneumothorax is seen. The skeletal structures are osteopenic. The bony thorax is grossly intact. IMPRESSION: 1. Cardiomegaly without radiographic evidence of congestive failure. 2. Suspect small pleural effusion. ACT 112: Negative or not required by law. Electronically signed by: Scooter Ryder M.D. 08/31/2023 11:05 AM Abdomen/Pelvis CT 08/31/23 12:09 CT OF THE ABDOMEN AND PELVIS WITH CONTRAST CLINICAL HISTORY: Abdominal discomfort, elevated WBC. COMPARISON STUDY: Right upper quadrant ultrasound August 22, 2023. TECHNIQUE: Following IV administration of 90 mL of Optiray, axial images of the abdomen and pelvis were obtained from the lung bases to the proximal femurs. Images were reviewed in the axial, sagittal, and coronal planes. IV contrast was administered without complication. Automated exposure control was utilized for the study. A dose lowering technique was utilized adhering to the principles of ALARA. CT DOSE: 1102.86 mGy.cm FINDINGS: Small right and trace left pleural effusions are noted. Right lower lobe opacity favors atelectasis. No pneumatosis, free air or portal venous gas is present. Nodularity of the liver surface indicates cirrhosis. Several subcentimeter hypodense hepatic lesions are too small to characterize. There is no biliary or pancreatic ductal dilatation. There is moderate pericholecystic fluid and stranding. In addition, there is loculated moderate perihepatic fluid extending into the right paracolic gutter with associated peritoneal enhancement. There is slight scalloping of the liver surface. Possible discontinuity within the gallbladder fundus is noted. The gallbladder is not significantly distended. There is mild mucosal enhancement of the gallbladder wall which appears slightly irregular. Spleen, adrenal glands and kidneys are unremarkable. Is no hydronephrosis. Wall thickening of the ascending colon is noted. This is probably reactive, secondary to the process within the right upper quadrant. There is no evidence for a bowel obstruction. There is a small amount of presacral fluid. Colonic diverticulosis is present without evidence for acute diverticulitis. The appendix is normal. A left inguinal hernia contains a small amount of fluid with peritoneal thickening. There is asymmetric wall thickening of the left anterior aspect of the bladder wall. IMPRESSION: 1. Moderate pericholecystic fluid and stranding with irregularity of the gallbladder wall. The findings are suspicious for acute cholecystitis, possibly perforated, given contiguous moderate perihepatic loculated fluid which extends into the paracolic gutter. Peritoneal enhancement. The findings could be correlated with clinical evidence for peritonitis. 2. Wall thickening of the ascending colon. This is likely secondary to the inflammatory process within the right upper quadrant. Colitis could appear simil ar although is considered less likely. No bowel obstruction. 3. Small right and trace left pleural effusions. 4. Cirrhotic liver. 5. Asymmetric wall thickening of the left anterior bladder wall. This is nonspecific and correlation with cystoscopy is recommended. 6. Left inguinal hernia which contains a small amount of fluid. ACT 112: Positive. There are findings on this exam that require communication between the performing entity and the patient following Patient Test Result Information Act ([place] Act 112) guidelines. Electronically signed by: Ifeanyi Correa M.D. 08/31/2023 1:20 PM Gallbladder Ultrasound 08/31/23 14:37 US gallbladder CLINICAL HISTORY: Cholecystitis. COMPARISON STUDY: Right upper quadrant ultrasound August 22, 2023. CT of the abdomen and pelvis performed earlier today. FINDINGS: There is coarsening of hepatic echotexture and nodularity of the liver surface indicative of cirrhosis. A few subcentimeter hepatic cysts are present. Moderate perihepatic fluid is noted. The fluid appears loculated. There is no biliary ductal dilatation. Common bile duct measures 5 mm in caliber. Pancreas is unremarkable by sonography. The gallbladder is filled with stones and sludge. There is mild gallbladder wall thickening. No sonographic Tello sign was elicited. There is no right hydronephrosis. IMPRESSION: 1. Cholelithiasis with mild gallbladder wall thickening. No sonographic Tello sign. Although not definitive, the findings remain suspicious for acute cholecystitis. Given the CT findings, perforated cholecystitis cannot be excluded. 2. No biliary ductal dilatation. 3. Moderate loculated perihepatic fluid. 3. Cirrhotic liver. ACT 112: Negative or not required by law. Electronically signed by: Ifeanyi Correa M.D. 08/31/2023 5:25 PM Code Status & VTE Plan Code Status Full code VTE Prophylaxis Plan VTE Prophylaxis will be ordered: Yes PG Care Time/CCT Total # of Minutes Spent Total Time Spent with Patient: Total time spent is greater than 50% in coordination of care (as documented) at patient's floor/unit and/or counseling patient: Coding Level of Care Code 67862 INT INP/OBS CARE 3/75MIN Diagnoses Acute cholecystitis K81.0 AF (paroxysmal atrial fibrillation) I48.0 Chronic venous insufficiency I87.2 Chronic anticoagulation Z79.01 COVID-19 U07.1 Fluid overload E87.79 Hypervolemia type: other (6) Fluid overload Hypervolemia type: other Qualified Code(s): E87.79 - Other fluid overload
[2023-08-31 15:55] LABS: Appearance Urine Clear (Clear); Bacteria Urine Automated Negative (Negative); Bilirubin Urine Negative (Negative); Blood Urine Negative (Negative); Color Urine Yellow; Glucose Urine UA Negative (Negative); Ketones Urine Negative (Negative); Leukocyte Esterase Urine Negative (Negative); Nitrite Urine Negative (Negative); Protein Urine Trace (Negative); RBC Urine Automated 0-4 /hpf (0-4); Specific Gravity Urine > 1.045 (1.000-1.030); Urobilinogen Urine Negative (Negative); pH Urine 5.5 (4.5-7.5)
--- NOTE | 2023-08-31 17:27 | Ultrasound Report ---
US gallbladder CLINICAL HISTORY: Cholecystitis. COMPARISON STUDY: Right upper quadrant ultrasound August 22, 2023. CT of the abdomen and pelvis pe rformed earlier today. FINDINGS: There is coarsening of hepatic echotexture and nodularity of the liver surface indicative o f cirrhosis. A few subcentimeter hepatic cysts are present. Moderate perihepatic fluid is noted. The fluid appears loculated. There is no biliary ductal dilatation. Common bile duct measures 5 mm in pierre iber. Pancreas is unremarkable by sonography. The gallbladder is filled with stones and sludge. There is mild gallbladder wall thickening. No sonographic Tello sign was elicited. There is no right hydr onephrosis. IMPRESSION: 1. Cholelithiasis with mild gallbladder wall thickening. No sonographic Tello sign. Although not de finitive, the findings remain suspicious for acute cholecystitis. Given the CT findings, perforated c holecystitis cannot be excluded. 2. No biliary ductal dilatation. 3. Moderate loculated perihepatic fluid. 3. Cirrhotic liver. ACT 112: Negative or not required by law. Electronically signed by: Ifeanyi Correa M.D. 08/31/2023 5:25 PM
[2023-08-31] MEDS ORDERED: ONDANSETRON INJ 2 MG/ML 2 ML VIAL IV PRN (17:36)
[2023-08-31] MEDS ORDERED: NSS + 20MEQ KCL 20 MEQ/1,000 ML BAG IV SCH (18:15)
[2023-08-31] MEDS: PIPERACILLIN/TAZOBACTAM 4.5 GM in DEXTROSE 5% MINI-B 100 ML IV SCH (20:26)
[2023-08-31] MEDS: METOPROLOL TARTRATE 25 MG TAB PO SCH (20:27)
[2023-08-31] MEDS: FLUTICASONE PROPIONATE NA SPR 16 GM BTL NAE SCH (20:27)
--- NOTE | 2023-08-31 23:42 | Magnetic Resonance Report ---
Exam(s): MRI MRCP EXAM: MR Abdomen Without Intravenous Contrast, MRCP Protocol CLINICAL HISTORY: Reason for exam: acute cholecystitis. TECHNIQUE: Multiplanar magnetic resonance images of the abdomen without intravenous contrast using MRCP protocol. COMPARISON: CT, ultrasound 08/31/23 FINDINGS: Study is degraded by motion artifact. There are small pleural effusions, right greater than left, with compressive atelectasis of the right lung base. Liver surface is nodular in keeping with cirrhosis. No focal hepatic lesion is seen. There is no intrahepatic biliary dilatation. Common bile duct is normal in caliber measuring up to 5.5 mm. No choledocholithiasis is visible. There is gallbladder wall thickening and irregularity with significant pericholecystic fluid. Integrity of the gallbladder wall is suboptimally characterized due to motion. Gallstones are noted. There is adjacent loculated ascites encasing the liver and extending into the right paracolic gutter, as noted on prior CT. Spleen, pancreas, and adrenal glands appear unremarkable. There are subcentimeter cysts within the left kidney. Kidneys are similar in size. There is no hydronephrosis. There is no aortic aneurysm. IMPRESSION: 1. Limited by motion. 2. Inflamed gallbladder with wall thickening, pericholecystic fluid, and gallstones, concerning for cholecystitis. Integrity of the gallbladder wall is not well characterized due to motion. 3. Adjacent loculated ascites encasing the liver and extending into the right paracolic gutter, potentially indicative of peritonitis. 4. No choledocholithiasis or biliary dilatation. Electronically signed by: Lisa Shah M.D. 08/31/23 23:40 PM
[2023-09-01] MEDS: PIPERACILLIN/TAZOBACTAM 4.5 GM in DEXTROSE 5% MINI-B 100 ML IV SCH ×3 (03:30→21:31)
[2023-09-01] MEDS: FLUTICASONE PROPIONATE NA SPR 16 GM BTL NAE SCH ×2 (07:59→21:31)
[2023-09-01] MEDS: METOPROLOL TARTRATE 25 MG TAB PO SCH ×2 (08:00→21:32)
[2023-09-01] MEDS ORDERED: fentaNYL citrate PF 100 MCG/2 ML VIAL ONE (08:23)
[2023-09-01] MEDS ORDERED: ROCURONIUM BROMIDE 10 MG/ML 5 ML VIAL IV ONE (08:24)
[2023-09-01] MEDS ORDERED: DEXAMETHASONE SOD INJ 4 MG/ML VIAL ONE (08:24)
[2023-09-01] MEDS ORDERED: ONDANSETRON INJ 2 MG/ML 2 ML VIAL ONE (08:24)
[2023-09-01] MEDS ORDERED: diphenhydrAMINE 50 MG/ML VIAL ONE (08:24)
[2023-09-01] MEDS ORDERED: PROPOFOL IV EMULSION 10 MG/ML 20 ML VIAL IV ONE (08:24)
[2023-09-01] MEDS ORDERED: LIDOCAINE 2% 2 ML VIAL/AMP(20MG/ML) INFIL ONE (08:24)
[2023-09-01] MEDS ORDERED: SODIUM CHLORIDE 0.9% PF INJ 10 ML VIAL ONE (08:25)
[2023-09-01 08:26] LABS: Hematocrit (blood only) 25.6 % (42.0-52.0); Mean Corpuscular Hemoglobin 27.1 pg (25.0-34.0); Mean Corpuscular Hgb Conc 31.3 g/dL (32.0-36.0); Mean Corpuscular Volume 86.8 fL (80.0-100.0); Mean Platelet Volume 9.2 fL (9.4-12.4); Platelet Count 387 K/uL (130-400); RDW Coefficient of Variation 17.2 % (11.5-14.5); RDW Standard Deviation 53.3 fL (36.4-46.3); Red Blood Count 2.95 M/uL (4.70-6.10); White Blood Count 20.45 K/ul (4.8-10.8)
--- NOTE | 2023-09-01 08:31 | Hospitalist Progress Note ---
Date of Service September 01, 2023 Assessment & Plan (1) Acute cholecystitis: Plan: Imaging suggests possible perforation. He remains n.p.o. on IV fluids and on intravenous Zosyn. Considering his recent upper GI bleed with history of cirrhosis and esophageal varices, I believe any surgical intervention should be undertaken at a tertiary care center because there are likely to be complications. The patient is in agreement and has selected [facility] for his destination. I have conveyed this information to his , Antoinette. Nurses have messaged Dr. Ferguson (2) AF (paroxysmal atrial fibrillation): Plan: Controlled rate. Eliquis is on hold. Telemetry (3) Chronic venous insufficiency: Plan: Difficult to ascertain if mild peripheral edema is related to chronic venous insufficiency, cirrhosis, or possibly congestive heart failure. Chest x-ray reveals vascular congestion and BNP is elevated but this could be chronic. (4) Chronic anticoagulation: Plan: Eliquis is currently on hold (5) COVID-19: Plan: Recent illness has resolved Plan Keep n.p.o. with IV fluids and IV antibiotics. Eliquis is on hold. Will transfer to [facility] for tertiary care and surgical intervention Admission and Anticipated Discharge Date Admission Date: August 31, 2023 Subjective Alert and oriented. No distress. Reviewing his past history with nonalcoholic cirrhosis and esophageal varices with recent GI bleeding and the possibility that the acute cholecystitis may already be perforated based on imaging results I believe he should be at a tertiary care center for intervention. The patient agrees. He will be transferred to [facility] which is his first choice. His has been updated. Will keep him n.p.o. and maintain IV fluids. Continue Zosyn. Chest x-ray looks like vascular congestion and BNP is elevated. However, he is not hypoxic. This can be addressed further at [facility] Review of Systems 2 Review of Systems: Constitutional-no fever or chills ENT-no blurred vision, no double vision, no epistaxis, no sore throat Respiratory-no cough, no wheezing, no shortness of breath Cardiac-no palpitations, no chest pain, no syncope GI-intermittent nausea. Right upper quadrant discomfort. No vomiting, diarrhea, melena, hematochezia -no urinary retention, no urinary incontinence, no dysuria, no hematuria Musculoskeletal-no joint pain, no muscle tenderness Skin-no bruising, no rashes, no pruritus Neuro-generalized weakness. No focal deficits Psych-no depression, no anxiety Physical Exam 2 Physical Exam: General-alert and oriented x3, no fevers, no chills HEENT-head atraumatic and normocephalic, pupils equal and reactive to light, extraocular muscles intact Neck-no lymphadenopathy or thyromegaly, trachea midline Chest-clear to auscultation percussion. No rales wheezing or rhonchi Cardiac-irregular rhythm consistent with atrial fibrillation. Controlled rate. Normal S1 and S2. Abdomen-normal bowel sounds, no hepatosplenomegaly. Right upper quadrant tenderness with deep palpation Extremities-1+ pitting edema bilateral lower extremities below the knees Neuro-cranial nerves II through XII intact, motor and sensory function within normal limits, strength symmetrical, no focal deficits Psych-normal affect, normal mood Results & Data Results & Data Vital Signs (Past 12 Hours) Vital Signs Temp Pulse Pulse Resp BP Pulse Ox O2 Del Method 09/01/23 07:46 37.1 C 114 H 18 118/71 93 Room Air 08/31/23 20:30 36.6 C 98 H 18 112/69 91 Room Air Laboratory Results 09/01/23 07:12 PG Care Time/CCT Total # of Minutes Spent Total Time Spent with Patient: Total time spent is greater than 50% in coordination of care (as documented) at patient's floor/unit and/or counseling patient: Coding Level of Care Code 33174 SUB INP/OBS CARE 3/50MIN Diagnoses Acute cholecystitis K81.0 AF (paroxysmal atrial fibrillation) I48.0 Chronic venous insufficiency I87.2 Chronic anticoagulation Z79.01 COVID-19 U07.1
[2023-09-01 08:48] LABS: Albumin Globulin Ratio 1.1 (0.9-2); Albumin Level 2.6 gm/dl (3.4-5.0); BUN Creatinine Ratio 29.9 (10-20); Calcium 7.6 mg/dl (8.6-10.3); Creatinine Clr Calc Pharmacy 87.8 ml/min; Est GFR (African American) 103.7 ml/min; Est GFR (Non-African American) 89.5 ml/min; Globulin 2.4 gm/dl (2.5-4.0); Magnesium 1.8 mg/dl (1.7-2.4); Potassium 3.8 mmol/L (3.5-5.1)
[2023-09-01 08:52] LABS: Basophils # (auto) 0.02 K/uL (0.00-0.20); Basophils % (auto) 0.1 %; Eosinophils # (auto) 0.01 K/uL (0.00-0.50); Immature Granulocytes # (auto) 0.19 K/uL (0.01-0.20); Immature Granulocytes % (auto) 0.9 %; Lymphocytes # (auto) 0.76 K/uL (1.20-3.40); Lymphocytes % (auto) 3.7 %; Monocytes # (auto) 0.95 K/uL (0.11-0.59); Monocytes % (auto) 4.6 %; Neutrophils # (auto) 18.52 K/uL (1.40-6.50); Neutrophils % (auto) 90.7 %; Ovalocytes 1+; Polychromasia 1+
[2023-09-01] MEDS ORDERED: PANTOprazole 40 MG in SYRINGE 0 ML IV SCH (11:00)
[2023-09-01] MEDS: VERAPAMIL HCL 240 MG TABCR PO SCH (11:21)
--- NOTE | 2023-09-01 14:55 | Discharge Summary ---
Date of Service September 01, 2023 Admission HPI Per Admitting Provider The patient is a 83-year-old male with a past medical history including COVID-19 infection 2 weeks ago, esophageal varices, history of upper GI bleed, history of acute blood loss anemia, chronic anticoagulation, chronic venous insufficiency, paroxysmal atrial fibrillation, hyperlipidemia and hypertension. The patient presents to the emergency department with worsening generalized weakness, fatigue and increased swelling in legs over the past 24 hours. He reports decreased overall appetite for the past few days Principal Diagnosis Acute cholecystitis Discharge Exam General-alert and oriented x3, no fevers, no chills HEENT-head atraumatic and normocephalic, pupils equal and reactive to light, extraocular muscles intact Neck-no lymphadenopathy or thyromegaly, trachea midline Chest-clear to auscultation percussion. No rales wheezing or rhonchi Cardiac-irregular rhythm consistent with atrial fibrillation. Controlled rate. Normal S1 and S2. Abdomen-normal bowel sounds, no hepatosplenomegaly. Right upper quadrant tenderness with deep palpation Extremities-1+ pitting edema bilateral lower extremities below the knees Neuro-cranial nerves II through XII intact, motor and sensory function within normal limits, strength symmetrical, no focal deficits Psych-normal affect, normal mood Discharge Data Allergies Allergy/AdvReac Type Severity Reaction Status Date / Time pravastatin Allergy Intermediate myalgias Verified 08/31/23 14:27 TRACI Inhibitors Allergy Mild Cough Verified 08/31/23 14:27 adhesive Allergy Mild skin Verified 08/31/23 14:27 irritation latex Allergy Mild SKIN Verified 08/31/23 14:27 IRRIATION lisinopril Allergy Mild Cough Verified 08/31/23 14:27 furosemide [From Lasix] AdvReac Mild Rash Verified 08/31/23 14:27 Consultations 08/31/23 14:01 ED Decision to Admit Stat Procedures Performed Operation Date: 09/01/23 09:30 <No data on this case meets the specified criteria> Ordered Studies 08/31/23 12:09 CT abd pelvis IV con only Stat 08/31/23 13:58 MR MRCP Stat 08/31/23 14:37 US gallbladder Stat Hospital Course (1) Acute cholecystitis: Imaging suggests possible perforation. He remains n.p.o. on IV fluids and on intravenous Zosyn. Considering his recent upper GI bleed with history of cirrhosis and esophageal varices, I believe any surgical intervention should be undertaken at a tertiary care center because there are likely to be complications. The patient is in agreement and has selected [facility] for his destination. I have conveyed this information to his , Antoinette. Nurses have messaged Dr. Ferguson (2) AF (paroxysmal atrial fibrillation): Controlled rate. Eliquis is on hold. Telemetry (3) Chronic venous insufficiency: Difficult to ascertain if mild peripheral edema is related to chronic venous insufficiency, cirrhosis, or possibly congestive heart failure. Chest x-ray reveals vascular congestion and BNP is elevated but this could be chronic. (4) Chronic anticoagulation: Eliquis is currently on hold (5) COVID-19: Recent illness has resolved Plan Keep n.p.o. with IV fluids and IV antibiotics. Eliquis is on hold. Will transfer to [facility] for tertiary care and surgical intervention Total Time Total Time Spent Total Time Spent (In Minutes): 45 minutes Discharge Plan Discharge Items Patient Disposition: Transfer Acute Care Hospital Reason For Visit: CHOLECYSTITIS, COVID-19+ Discharge Diagnosis: Acute cholecystitis Activity: As commented below Activity Comment: Bedrest for now Non-emergency contact: Primary Care Provider Call non-emergency contact if: your symptoms worsen Follow-up/Referrals: Mihir Cai MD [Primary Care Provider] - Diet: Full liquid Addtl Attending Provider Instructions: See primary care provider soon as possible after discharge from [facility] Stand-Alone Forms: My [facility] Skilled Items Patient informed of condition?: Yes DNR: No Discharge Level of Care: Other Communicable Disease: No Discharge Prognosis: Stable Lines: Peripheral IV Urinary Catheter: No Medications and DC Order Prescriptions: New ondansetron HCl (PF) 4 mg/2 mL Solution 4 mg IV Q6H PRNQty: 0 0RF Zosyn in dextrose (iso-osm) 4.5 gram/100 mL piggyback 4.5 g IV Q8H Continued fluticasone propionate 50 mcg/actuation spray,suspension 1 spray intranasal BID Qty: 3 3RF verapamil 240 mg capsule,ext rel. pellets 24 hr 240 mg PO BID Qty: 180 3RF rosuvastatin 5 mg tablet 5 mg PO 3XWK Rx Instructions: 5 mg PO every Mon, tue and tuesday metoprolol tartrate 25 mg Tablet 12.5 mg PO BID Qty: 60 2RF cyanocobalamin (vitamin B-12) 1,000 mcg tablet 1,000 mcg PO DAILY Qty: 90 3RF pantoprazole 40 mg tablet,delayed release (DR/EC) 40 mg PO BID Qty: 60 2RF albuterol sulfate 90 mcg/actuation HFA aerosol inhaler 2 puff INHALATION Q6H PRN (Reason: sob) Discontinued Eliquis 5 mg tablet 0 mg PO BID Rx Instructions: Currently on hold until further notice per Spouse due to GI bleed. Original directions: 5mg by mouth twice daily. 08/31/23 Discharge Orders: Discharge Order (Routine); Ordered 09/01/23 Ordered By: Jonathan Villagran Admission Data Admit Date/Time: 08/31/23 15:34 Attending Provider: Jonathan Villagran Admit Provider: Memo Ramey Primary Care Provider: Mihir Cai Other Providers: Memo Ramey Coding Level of Care Code 97270 INP/OBS DISCH >30 MIN Diagnoses Acute cholecystitis K81.0 AF (paroxysmal atrial fibrillation) I48.0 Chronic venous insufficiency I87.2 Chronic anticoagulation Z79.01 COVID-19 U07.1
[2023-09-02] MEDS: PIPERACILLIN/TAZOBACTAM 4.5 GM in DEXTROSE 5% MINI-B 100 ML IV SCH ×3 (04:10→19:44)
[2023-09-02] MEDS: FLUTICASONE PROPIONATE NA SPR 16 GM BTL NAE SCH ×2 (08:46→19:44)
[2023-09-02 08:48] LABS: Basophils # (auto) 0.03 K/uL (0.00-0.20); Basophils % (auto) 0.2 %; Eosinophils # (auto) 0.01 K/uL (0.00-0.50); Eosinophils % (auto) 0.1 %; Hematocrit (blood only) 29.5 % (42.0-52.0); Hemoglobin 8.8 g/dl (14.0-18.0); Immature Granulocytes # (auto) 0.08 K/uL (0.01-0.20); Immature Granulocytes % (auto) 0.6 %; Lymphocytes # (auto) 0.77 K/uL (1.20-3.40); Lymphocytes % (auto) 5.3 %; Mean Corpuscular Hemoglobin 26.4 pg (25.0-34.0); Mean Corpuscular Hgb Conc 29.8 g/dL (32.0-36.0); Mean Corpuscular Volume 88.6 fL (80.0-100.0); Monocytes # (auto) 0.84 K/uL (0.11-0.59); Monocytes % (auto) 5.8 %; Neutrophils # (auto) 12.68 K/uL (1.40-6.50); Platelet Count 366 K/uL (130-400); RDW Coefficient of Variation 17.2 % (11.5-14.5); RDW Standard Deviation 54.2 fL (36.4-46.3); Red Blood Count 3.33 M/uL (4.70-6.10); White Blood Count 14.41 K/ul (4.8-10.8)
[2023-09-02] MEDS: METOPROLOL TARTRATE 25 MG TAB PO SCH ×2 (09:00→19:44)
[2023-09-02] MEDS: VERAPAMIL HCL 240 MG TABCR PO SCH (09:01)
[2023-09-02 09:05] LABS: Albumin Globulin Ratio 0.9 (0.9-2); Albumin Level 2.5 gm/dl (3.4-5.0); BUN Creatinine Ratio 22.4 (10-20); Calcium 7.6 mg/dl (8.6-10.3); Creatinine Clr Calc Pharmacy 77.4 ml/min; Est GFR (African American) 98.5 ml/min; Globulin 2.8 gm/dl (2.5-4.0); Magnesium 1.8 mg/dl (1.7-2.4); Potassium 3.4 mmol/L (3.5-5.1); Total Protein 5.3 gm/dl (6.0-8.3)
[2023-09-02] MEDS ORDERED: POTASSIUM CHLORIDE CRTAB 20 MEQ TABCR PO ONE ×2 (10:41→14:15)
--- NOTE | 2023-09-02 15:54 | Hospitalist Progress Note ---
Date of Service September 02, 2023 Assessment & Plan (1) Acute cholecystitis: Plan: Imaging suggests possible perforation. General surgery at [facility] has allowed full liquids for now. Continue intravenous Zosyn. Considering his recent upper GI bleed with history of cirrhosis and esophageal varices, I believe any surgical intervention should be undertaken at a tertiary care center because there are likely to be complications. The patient is in agreement and has selected [facility] for his destination. I have conveyed this information to his , Antoinette. Dr. Ferguson is aware (2) Sepsis: Plan: Present on admission. Now stable (3) AF (paroxysmal atrial fibrillation): Plan: Controlled rate. Eliquis is on hold. Telemetry (4) Chronic venous insufficiency: Plan: Difficult to ascertain if mild peripheral edema is related to chronic venous insufficiency, cirrhosis, or possibly congestive heart failure. Chest x-ray reveals vascular congestion and BNP is elevated but this could be chronic. (5) Chronic anticoagulation: Plan: Eliquis is currently on hold (6) COVID-19: Plan: Recent illness has resolved Plan Full liquid diet only. Continue Zosyn. Eliquis is on hold. Will transfer to [facility] for tertiary care and surgical intervention when bed is available Admission and Anticipated Discharge Date Admission Date: August 31, 2023 Subjective Alert and oriented. No complaints. Awaiting transfer to [facility] for cholecystectomy. Review of Systems 2 Review of Systems: Constitutional-no fever or chills ENT-no blurred vision, no double vision, no epistaxis, no sore throat Respiratory-no cough, no wheezing, no shortness of breath Cardiac-no palpitations, no chest pain, no syncope GI-intermittent nausea. Right upper quadrant discomfort. No vomiting, diarrhea, melena, hematochezia -no urinary retention, no urinary incontinence, no dysuria, no hematuria Musculoskeletal-no joint pain, no muscle tenderness Skin-no bruising, no rashes, no pruritus Neuro-generalized weakness. No focal deficits Psych-no depression, no anxiety Physical Exam 2 Physical Exam: General-alert and oriented x3, no fevers, no chills HEENT-head atraumatic and normocephalic, pupils equal and reactive to light, extraocular muscles intact Neck-no lymphadenopathy or thyromegaly, trachea midline Chest-clear to auscultation percussion. No rales wheezing or rhonchi Cardiac-irregular rhythm consistent with atrial fibrillation. Controlled rate. Normal S1 and S2. Abdomen-normal bowel sounds, no hepatosplenomegaly. Right upper quadrant tenderness with deep palpation Extremities-1+ pitting edema bilateral lower extremities below the knees Neuro-cranial nerves II through XII intact, motor and sensory function within normal limits, strength symmetrical, no focal deficits Psych-normal affect, normal mood Results & Data Results & Data Vital Signs (Past 12 Hours) Vital Signs Temp Pulse Pulse Resp BP Pulse Ox O2 Del Method 09/02/23 15:16 36.5 C 77 16 114/65 94 Room Air 09/02/23 08:22 36.6 C 95 H 16 130/79 94 Room Air 09/02/23 04:20 36.6 C 100 H 16 120/72 94 Room Air Laboratory Results 09/02/23 08:32 09/02/23 08:32 PG Care Time/CCT Total # of Minutes Spent Total Time Spent with Patient: Total time spent is greater than 50% in coordination of care (as documented) at patient's floor/unit and/or counseling patient: Coding Level of Care Code 70419 SUB INP/OBS CARE 2/35MIN Diagnoses Acute cholecystitis K81.0 Sepsis A41.9 AF (paroxysmal atrial fibrillation) I48.0 Chronic venous insufficiency I87.2 Chronic anticoagulation Z79.01 COVID-19 U07.1
[2023-09-03] MEDS ORDERED: PANTOprazole 40 MG TAB PO SCH (09:00)
--- NOTE | 2023-09-07 12:59 | Coding Query ---
CODING QUERY To promote full compliance with coding requirements relating to patient care, provider participation is requested in all cases of veneer drier tailer uncertainty. Please assist us with the question(s) below: Coding Question(s): The 09/02 Hospitalist Progress Note documents Sepsis present on admission, now stable. Please specify below, in your clinical opinion, the most likely source of the Sepsis: ( x ) Most likely from Acute Cholecystitis ( ) Most likely from Other source: Please Specify ( ) Most likely from Unknown possible source Physician's Response(s): Thank you María Abreu Principal Diagnosis: "that condition established after study, to be chiefly responsible for occasioning the admission of the patient to the hospital for care." Co-Existing Principal Diagnosis: "when two or more diagnoses equally meet the criteria for principal diagnosis as determined by the circumstances of admission, diagnostic work up, and/or therapy provided, and the Alphabetic Index, Tabular List, or another coding guideline does not provide sequencing direction, any one of the diagnoses may be sequenced first." "When the physician has documented what appears to be a current diagnosis in the body of the record, but has not included the diagnosis in the final diagnostic statement, the physician should be asked whether the diagnosis should be added." (Source Coding Clinic 2 QTR90. p3-4) CHEIKH
== END 2023-09-02 22:42 | disposition short-term general hospital (02) | DRG 872 ==
LOC: ED 10:21 → SUATTDRO 15:34 → 3E 15:34

== ENCOUNTER 2023-09-14 13:14 | Inpatient (IN) ==
--- NOTE | 2023-09-14 14:37 | XRay Report ---
XR chest 1V portable HISTORY: weakness COMPARISON: Chest 08/31/2023. FINDINGS: Interval increase in size in the now moderate right pleural effusion. No pneumothorax. No s ignificant left pleural effusion. There are old, healed left-sided rib fractures. No acute fractures identified. The heart remains mildly enlarged. No evidence for pulmonary edema. Right mid to lower radha ng zone densities favor atelectasis from the pleural effusion. A superimposed pneumonia would be diff icult to exclude. IMPRESSION: 1. Interval increase in size in the now moderate right pleural effusion. 2. Right mid to lower lung zone densities favor compressive atelectasis from the pleural effusion. A superimposed pneumonia would be difficult to exclude. ACT 112: Negative or not required by law. Electronically signed by: Bob Lai M.D. 09/14/2023 2:36 PM
[2023-09-14 14:48] LABS: Basophils # (auto) 0.05 K/uL (0.00-0.20); Basophils % (auto) 0.4 %; Eosinophils # (auto) 0.01 K/uL (0.00-0.50); Eosinophils % (auto) 0.1 %; Hematocrit (blood only) 36.4 % (42.0-52.0); Hemoglobin 10.9 g/dl (14.0-18.0); Immature Granulocytes # (auto) 0.09 K/uL (0.01-0.20); Immature Granulocytes % (auto) 0.7 %; Lymphocytes # (auto) 1.07 K/uL (1.20-3.40); Lymphocytes % (auto) 7.7 %; Mean Corpuscular Hemoglobin 26.1 pg (25.0-34.0); Mean Corpuscular Hgb Conc 29.9 g/dL (32.0-36.0); Mean Corpuscular Volume 87.3 fL (80.0-100.0); Monocytes % (auto) 7.2 %; Neutrophils % (auto) 83.9 %; Platelet Count 499 K/uL (130-400); RDW Coefficient of Variation 18.4 % (11.5-14.5); RDW Standard Deviation 58.2 fL (36.4-46.3); Red Blood Count 4.17 M/uL (4.70-6.10); White Blood Count 13.82 K/ul (4.8-10.8)
[2023-09-14 14:52] LABS: Albumin Globulin Ratio 0.9 (0.9-2); BUN Creatinine Ratio 32.8 (10-20); Bilirubin,Total 0.7 mg/dl (0.2-1.0); Calcium 8.4 mg/dl (8.6-10.3); Creatinine Clr Calc Pharmacy 80.5 ml/min; Est GFR (African American) 103.7 ml/min; Est GFR (Non-African American) 89.5 ml/min; Globulin 3.4 gm/dl (2.5-4.0); Magnesium 1.7 mg/dl (1.7-2.4); Potassium 3.7 mmol/L (3.5-5.1); Total Protein 6.4 gm/dl (6.0-8.3)
[2023-09-14 14:57] LABS: Troponin I High Sensitivity 4.9 pg/ml (0-20)
[2023-09-14 15:00] LABS: INR 1.4 (0.9-1.1)
[2023-09-14 15:05] LABS: Thyroid Stimulating Hormone 2.55 uIu/ml (0.300-4.500)
--- NOTE | 2023-09-14 15:22 | Emergency Department Note ---
Impression & Plan Generalized weakness, Ambulatory dysfunction ED Provider Note HISTORY OF PRESENT ILLNESS: Patient is an 83-year-old male presenting with general malaise and weakness. Patient reports that for the last few days he has been feeling generally unwell. He states that for 4 days he is felt very weak and had bilateral lower extremity weakness. States that he has had difficulties getting around at home. He was just discharged from [facility] this past week after being admitted for gallbladder issues. He denies any fevers at home. Denies any chest pain or shortness of breath. Denies any significant nausea, vomiting or abdominal pain. Denies any dysuria or hematuria. Denies any recent head injury or chiropractic manipulation of his neck. Contacted patient's for further information. Reports patient has been declining over the past week since being discharged. Reports patient normally was able to ambulate without assistive devices, but states that in the last week he's been using a wheelchair because he was only able to walk 2-3 steps. ROS: as above PHYSICAL EXAM: Constitutional: Patient appears in no acute distress. HENT: Head: Normocephalic and atraumatic. Eyes: EOMI, PERRL Mouth/Throat: Mucous membranes moist. Neck: Trachea midline. Neck supple. Cardiovascular: RRR, No murmurs, rubs or gallops. Intact distal pulses. Pulmonary/Chest: No respiratory distress. Breath sounds clear and equal bilaterally. No wheezes or rales. Abdominal: Abdomen soft, no tenderness, rebound or guarding. Musculoskeletal: No edema, tenderness or deformity noted. Skin: Warm and dry. No rash, erythema, pallor or cyanosis Psychiatric: Appropriate mood and affect for situation. Neurological: Alert and keenly responsive. CN II-XII grossly intact, moving all extremities equally and fully. MDM: - Vitals signs stable. - History obtained via patient. Patient presents with malaise and weakness. Patient reports for the last few days has been feeling generally unwell. He states he has been having significant difficulties getting around secondary to bilateral lower extremity weakness. He is normally ambulatory without any assistive devices, but reportedly has been using a wheelchair at home secondary to being unable to walk. Denies any recent head injury or chiropractic manipulation of his neck. Denies any chest pain or shortness of breath. - Chronic conditions affecting care: HTN; HLD; persistent Afib - Differential diagnoses include, but are not limited to: UTI; pneumonia; viral syndrome; electrolyte abnormality - Order placed for continuous cardiac monitoring. At this time, monitor showed rate of 85 bpm with normal sinus rhythm, per my interpretation. - External medical records reviewed. EMS run sheet was reviewed. They were called out to the patient's home by the physical therapist who was concerned about the patient's generalized weakness. He was vitally stable and route. - EKG interpreted by myself showed atrial fibrillation. Rate 97 bpm. QTc 464. No acute ischemic changes. - Laboratory workup interpreted by myself showed leukocytosis (WBC 13.82); stable electrolytes; normal troponin; normal TSH - UA negative for infection - COVID positive - CXR showed right-sided pleural effusion, per my interpretation. Radiology notes that the pleural effusion has increased in size. Also noted to have some right mid and lower lung density is that could potentially be a superimposed pneumonia. - Discussed results with patient and with his via phone. They report that the patient was sent by the at home physical therapist due to concern for his weakness and need for inpatient rehab. They are agreeable to admission for placement. - Discussion was had with home care associate about patient's case and need for admission - Hospitalist consulted for admission - Patient admitted to [facility] for further evaluation and management. ASSESSMENT AND PLAN: Diagnosis: generalized weakness; ambulatory dysfunction Plan: admit Past Med/Surg History Medical History (Updated 09/14/23 @ 16:33 by Mariajose Becker MD) Persistent atrial fibrillation Arthritis Anemia Cataract RT EYE (LEFT EYE CATARACT REMOVED) Seasonal allergies Left-sided tinnitus Left asymmetrical SNHL AF (paroxysmal atrial fibrillation) FOLLOWED BY [facility] Hyperlipidemia Benign essential hypertension Surgical History History of tooth extraction History of cataract surgery LEFT H/O elbow surgery LEFT x4 H/O arthroscopy of knee RIGHT x3 , LEFT x1 H/O arthroscopy of shoulder RT Family History Father Coronary heart disease Myocardial infarction Brother Cancer, Onset Age: 63 Lung cancer met to brain @ age 67 Sister Cancer, Onset Age: 60 unknown primary Sister No problems noted. Other No family history of adverse response to anesthesia No family history of bleeding disorder Denies family history of Ovarian cancer Prostate cancer Breast cancer Colorectal cancer Social History Smoking Status: Never smoker Tobacco Type: Cigarettes Age Started Using Tobacco: 19; Age Quit Using Tobacco: 41; packs per day: 1; Second Hand Exposure: No; Do You Dip or Chew Tobacco: No; Hx Alcohol Use: No Hx Substance Use: No Preferred Language: Surinamese Communication Ability: Effective Visual Impairment: No Limitations Hearing Ability: Normal Tooth Cutter Required: No Beliefs That Will Affect Care: None marital status: Current Living Situation: Spouse Current Living Situation Comment: Independant Living highrise current occupational status: retired 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 Safe at Home: Yes Childhood Exposure to Second-Hand Smoke: Yes caffeine: Yes during the past year weight has: remained stable Dental Care, Regularly: Yes Physical Activity Frequency: Daily Physical Activity Frequency Comment: walking Seatbelt Use: always Sunscreen Use: Yes Do you think of yourself as: straight/heterosexual Assistive Devices: Walker Allergies Allergies Allergy/AdvReac Type Severity Reaction Status Date / Time adhesive Allergy Mild skin Verified 09/14/23 16:05 irritation furosemide [From Lasix] Allergy Mild Rash Verified 09/14/23 16:05 latex Allergy Mild SKIN Verified 09/14/23 16:05 IRRIATION TRACI Inhibitors AdvReac Intermediate Cough Verified 09/14/23 16:05 lisinopril AdvReac Intermediate Cough Verified 09/14/23 16:05 pravastatin AdvReac Intermediate myalgias Verified 09/14/23 16:05 Home Meds Home Medications Medication Instructions Recorded Confirmed rosuvastatin 5 mg tablet 5 mg PO 3XWK 05/02/23 09/14/23 albuterol sulfate 90 mcg/actuation 2 puff inhalation Q6H PRN sob 08/31/23 09/14/23 aerosol inhaler Previous Rx's Medication Instructions Recorded fluticasone propionate 50 1 spray intranasal BID #3 ea 05/03/23 mcg/actuation nasal spray,suspension verapamil 240 mg 24 hr 240 mg PO BID #180 caps 05/11/23 capsule,extended release cyanocobalamin (vitamin B-12) 1,000 mcg PO DAILY #90 tabs 08/26/23 1,000 mcg tablet metoprolol tartrate 25 mg tablet 12.5 mg (1/2 x 25 mg) PO BID #60 08/26/23 tabs pantoprazole 40 mg tablet,delayed 40 mg PO BID #60 tabs 08/26/23 release Results & Data (ED) Vital Signs Vital Signs - 24 hr 09/14/23 13:19 09/14/23 13:26 09/14/23 15:27 Temperature 36.5 C Temperature Source Oral Pulse Rate 93 H 87 Pulse Rate [Left Finger] 84 Pulse Rhythm Irregular Respiratory Rate 20 24 Blood Pressure 128/68 Blood Pressure [Right Arm] 137/85 Blood Pressure Mean 88 Blood Pressure Mean [Right Arm] 102 Blood Pressure Position Lying Blood Pressure Position [Right Arm] Sitting Pulse Oximetry 91 94 Oxygen Delivery Method Room Air Room Air Sepsis Recent Fever Within 48 Hours No Sepsis New/Unexplained Change in Mental Status No Sepsis Action Taken by Nursing No Action Required Laboratory Data 09/14/23 14:05 09/14/23 14:05 Lab Results 09/14/23 09/14/23 09/14/23 Range/Units 14:05 14:39 15:52 WBC 13.82 H (4.8-10.8) K/ul RBC 4.17 L (4.70-6.10) M/uL Hgb 10.9 L (14.0-18.0) g/dl Hct 36.4 L (42.0-52.0) % MCV 87.3 (80.0-100.0) fL MCH 26.1 (25.0-34.0) pg MCHC 29.9 L (32.0-36.0) g/dL RDW Std Deviation 58.2 H (36.4-46.3) fL RDW Coeff of [place] 18.4 H (11.5-14.5) % Plt Count 499 H (130-400) K/uL MPV 9.0 L (9.4-12.4) fL Immature Gran % (Auto) 0.7 % Neut % (Auto) 83.9 % Lymph % (Auto) 7.7 % [place] % (Auto) 7.2 % Eos % (Auto) 0.1 % Baso % (Auto) 0.4 % Neut # (Auto) 11.60 H (1.40-6.50) K/uL Lymph # (Auto) 1.07 L (1.20-3.40) K/uL [place] # (Auto) 1.00 H (0.11-0.59) K/uL Eos # (Auto) 0.01 (0.00-0.50) K/uL Baso # (Auto) 0.05 (0.00-0.20) K/uL Immature Gran # (Auto) 0.09 (0.01-0.20) K/uL PT 15.0 H (9.0-12.0) Seconds INR 1.4 H (0.9-1.1) Sodium 138 (136-145) mmol/L Potassium 3.7 (3.5-5.1) mmol/L Chloride 104 (98-107) mmol/L Carbon Dioxide 27 (21-32) mmol/L Anion Gap 7 (3-11) BUN 22 (6-23) mg/dl Creatinine 0.67 (0.6-1.4) mg/dl Est Cr Clr Drug Dosing 80.5 ml/min Est GFR ( Amer) 103.7 ml/min Est GFR (Non-Af Amer) 89.5 ml/min BUN/Creatinine Ratio 32.8 H (10-20) Glucose 104 H (70-99(Fasting)) mg/dl Lactate 1.6 (0.4-2.0) mmol/L Calcium 8.4 L (8.6-10.3) mg/dl Magnesium 1.7 (1.7-2.4) mg/dl Total Bilirubin 0.7 (0.2-1.0) mg/dl AST 32 (13-39) U/L ALT 28 (7-52) U/L Alkaline Phosphatase 101 (34-104) U/L Troponin I High Sens 4.9 (0-20) pg/ml Total Protein 6.4 (6.0-8.3) gm/dl Albumin 3.0 L (3.4-5.0) gm/dl Globulin 3.4 (2.5-4.0) gm/dl Albumin/Globulin Ratio 0.9 (0.9-2) TSH 2.550 (0.300-4.500) uIu/ml Urine Color Dark Yellow Urine Appearance Clear (Clear) Urine pH 5.5 (4.5-7.5) Ur Specific [place] 1.028 (1.000-1.030) Urine Protein 1+ H (Negative) Urine Glucose (UA) Negative (Negative) Urine Ketones 1+ H (Negative) Urine Blood Negative (Negative) Urine Nitrite Negative (Negative) Urine Bilirubin 1+ H (Negative) Urine Urobilinogen Negative (Negative) Ur Leukocyte Esterase Negative (Negative) Urine WBC (Auto) 1-5 (0-5) /hpf Urine RBC (Auto) 5-10 H (0-4) /hpf U Hyaline Cast (Auto) 5-10 H (0-5) /lpf U Epithel Cells (Auto) 10-20 H (0-5) /lpf Urine Bacteria (Auto) Negative (Negative) SARS-CoV-2 (PCR) POSITIVE A* (Negative) Imaging Data Radiologist's Impression: Chest X-Ray 09/14/23 13:32 XR chest 1V portable HISTORY: weakness COMPARISON: Chest 08/31/2023. FINDINGS: Interval increase in size in the now moderate right pleural effusion. No pneumothorax. No significant left pleural effusion. There are old, healed left-sided rib fractures. No acute fractures identified. The heart remains mildly enlarged. No evidence for pulmonary edema. Right mid to lower lung zone densities favor atelectasis from the pleural effusion. A superimposed pneumonia would be difficult to exclude. IMPRESSION: 1. Interval increase in size in the now moderate right pleural effusion. 2. Right mid to lower lung zone densities favor compressive atelectasis from the pleural effusion. A superimposed pneumonia would be difficult to exclude. ACT 112: Negative or not required by law. Electronically signed by: Bob Lai M.D. 09/14/2023 2:36 PM Discharge Plan Visit Data Chief Complaint: Illness Stated Complaint: UNABLE TO AMBULATE, EDEMA TO ANKLES ED Provider: Mariajose Becker Discharge Problem: Generalized weakness, Ambulatory dysfunction Forms Stand Alone Forms: My [facility] Prescriptions Prescriptions: No Action fluticasone propionate 50 mcg/actuation spray,suspension 1 spray intranasal BID Qty: 3 3RF verapamil 240 mg capsule,ext rel. pellets 24 hr 240 mg PO BID Qty: 180 3RF rosuvastatin 5 mg tablet 5 mg PO 3XWK Rx Instructions: 5 mg PO every Tue, tue and tuesday metoprolol tartrate 25 mg Tablet 12.5 mg PO BID Qty: 60 2RF cyanocobalamin (vitamin B-12) 1,000 mcg tablet 1,000 mcg PO DAILY Qty: 90 3RF pantoprazole 40 mg tablet,delayed release (DR/EC) 40 mg PO BID Qty: 60 2RF albuterol sulfate 90 mcg/actuation HFA aerosol inhaler 2 puff INHALATION Q6H PRN (Reason: sob) Referrals Referrals: Mihir Cai MD [Primary Care Provider] -
--- NOTE | 2023-09-14 15:55 | Electrocardiogram Report ---
Test Reason : Blood Pressure : / mmHG Vent. Rate : 097 BPM Atrial Rate : 000 BPM P-R Int : 000 ms QRS Dur : 068 ms QT Int : 464 ms P-R-T Axes : 000 039 047 degrees QTc Int : 589 ms Atrial fibrillation with premature ventricular or aberrantly conducted complexes Diffuse Minor Nonspecific T wave abnormality Abnormal ECG When compared with ECG of 31-AUG-2023 11:07, QT has lengthened Confirmed by Teto Hassan ([id number]) on 09/14/2023 3:55:27 PM Referred By: REFERRED SELF Confirmed By:Teto Hassan
[2023-09-14 16:14] LABS: Appearance Urine Clear (Clear); Bacteria Urine Automated Negative (Negative); Bilirubin Urine 1+ (Negative); Blood Urine Negative (Negative); Color Urine Dark Yellow; Glucose Urine UA Negative (Negative); Ketones Urine 1+ (Negative); Leukocyte Esterase Urine Negative (Negative); Nitrite Urine Negative (Negative); Protein Urine 1+ (Negative); Specific Gravity Urine 1.028 (1.000-1.030); Urobilinogen Urine Negative (Negative); pH Urine 5.5 (4.5-7.5)
[2023-09-14] MEDS ORDERED: SODIUM CHLORIDE 0.9% 1,000 ML IV ONE (16:27)
--- NOTE | 2023-09-14 17:43 | History & Physical Report ---
Date of Service September 14, 2023 Assessment & Plan (1) Generalized weakness: Plan: -Admit to med/tele -Currently hemodynamically stable, stable on RA, and non-toxic appearing -Presented to the [facility] ED from home on 09/14 due to increased weakness since being discharged from [facility] on 09/09/22 -Patient has been afebrile, negative respiratory and abdominal symptoms, UA without signs of infection -He is Covid 19 positive, however, this is likely still a reflection of being positive here on 08/31 prior to transfer to [facility] -CXR today could not rule out possible infection with underlying moderate right pleural effusion and atelectasis -At this time I have a lower suspicion for acute infection and feel as though his ongoing weakness is due to deconditioning on top of baseline weakness from his multiple recent admissions -Will add on procal for further evaluation of possible right lung pneumonia -Patient has been on Augmentin since discharge from [facility], will continue at this time -If he were to clinically decline or develop abdominal symptoms/nausea/vomiting would re-image his abd/pelvis -PT/OT consults placed, patient and are in agreement with inpatient rehab on DC -Will hold home Eliquis for now in case of Thoracentesis while admitted >BL OCTAVIO's for DVT PPX for now -HH diet with 2gm sodium restriction and 1800 mL fluid restriction -AM CBC, CMP, mag, PT/INR (2) History of biliary duct stent placement: Plan: -S/P biliary stent placement and drainage with [facility] on 09/06 -Currently without fever, chills, abd pain, nausea, vomiting, and diarrhea -Continue TID Augmentin with an end date of 09/19 (3) Pleural effusion, right: Plan: -Patient noted to have an increasing, moderate right pleural effusion on CXR today -Patient is asymptomatic and stable on RA -Unilateral pleural effusion is concerning -Will consult Pulmonology for further evaluation and possible thoracentesis -Holding home Eliquis for now; last dose was this am -Incentive spirometry, flutter therapy -PRN O2 to keep SpO2 at or above 94% (4) Fluid overload: Plan: -Patient noted to have significant BL LE swelling on exam -Likely a combination of receiving IV fluids during his last admission to [facility] in combination with known cirrhosis -Patient has a previous history of HFpEF and not on outpatient diuretics -Noted to have 1+ protein in his urine today -Was given 1L NSS in the ED prior to admission -Hold further IV fluids for now -Will obtain new TTE tomorrow and obtain protein to Cr ratio -Patient has a reported allergy to lasix with rash listed as the reaction -Will hold diuretics for now, follow rest of workup -2gm sodium and 1800 mL fluid restriction for now (5) Elevated INR: Plan: -INR elevated at 1.4 today -Has been 1.2-1.3 since August 2023 -AST and ALT are WNL -Patient is without signs of hepatic encephalopathy -Could be related to congestive hepatopathy with volume overload -No signs of bleeding -Continue to monitor daily INR for now (6) COVID-19: Plan: -Patient still positive on PCR testing today -Initially tested positive on 08/31/23 at our facility -Will keep on isolation precautions overnight -Patient is currently asymptomatic -Speak with infection control tomorrow regarding removing isolation precuations (7) Iron deficiency anemia: Plan: -Continue ferrous sulfate (8) AF (paroxysmal atrial fibrillation): Plan: -Currently in rate controlled afib -Holding Eliquis in case of thoracentesis -Continue Verapamil and metoprolol Plan The patient was discussed with Dr. Sandoval at the time of the admission History of Present Illness Chief Complaint: Generalized weakness Primary Care Provider: Mihir Cai MD Theodore is an 83 year old male with a PMH significant for Cirrhosis with grade I esophageal varices, history of upper GI bleed, paroxysmal atrial fibrillation on Eliquis, hyperlipidemia, hypertension, and recent episode of acute cholecystitis with possible perforation who presented to the [facility] ED on 09/14/23 via EMS for generalized weakness. He remained stable in the ED. Labs were significant for a leukocytosis of 13.8 with neutrophile predominance of 11, CBC consistent with hemoconcentration, INR of 1.4, UA not indicative of infection, and covid 19 positive. Chest xray was read as 1. Interval increase in size in the now moderate right pleural effusion. 2. Right mid to lower lung zone densities favor compressive atelectasis from the pleural effusion. A superimposed pneumonia would be difficult to exclude.. Prior to admission the patient was given 1L NSS. We were asked to admit the patient for placement and rule out possible infection. At the time of the exam the patient was sitting in bed in no acute distress. He states that since he was discharged home from [facility] on 09/09 he has been dealing with generalized weakness to the point that he is unable to walk more than 2-3 steps with the assistance of his walker. He states that he had a biliary stent placed at [facility], they did not perform a cholecystectomy. He had his first home PT appointment today, his Physical Therapist called EMS as she was concerned he was too weak to be at home. He currently denies other complaints besides generalized weakness and increased BL LE swelling since his admission at [facility]. When asked, he states that they had him on IV fluids his entire admission at [facility]. He denies recent fever, chills, chest pain, cough, SOB, abd pain, nausea, vomiting, diarrhea, dysuria, hematuria, melena, and recent trauma. We discussed code status, he confirms that he has a living will and POA. He is a DNR/DNI and would want his to make medical decisions for him if he cannot make them himself. I called his , Antoinette, with his permission to obtain further information. She confirms the above history and states that the patient was started on a 10 day course of Augmentin at the time of discharge; the end date is 09/19. She states that he was restarted on his Eliquis after last admission as well. Per the [facility] discharge summary, the patient was evaluated at [facility] on 09/[address] of the abd/pelvis which did not shows signs of perforation. He was started on IV zosyn and NSS, his Eliquis and was held. He was deemed a poor surgical candidate and therefore underwent GI transpapillary biliary stent placement and drainage on 09/06/22 without complications. He tolerated the procedure without complications and was able to tolerate a diet prior to discharge. Please refer to Dr. Sandoval's attestation for any changes to the treatment plan Allergies Allergy/AdvReac Type Severity Reaction Status Date / Time adhesive Allergy Mild skin Verified 09/14/23 16:05 irritation furosemide [From Lasix] Allergy Mild Rash Verified 09/14/23 16:05 latex Allergy Mild SKIN Verified 09/14/23 16:05 IRRIATION TRACI Inhibitors AdvReac Intermediate Cough Verified 09/14/23 16:05 lisinopril AdvReac Intermediate Cough Verified 09/14/23 16:05 pravastatin AdvReac Intermediate myalgias Verified 09/14/23 16:05 Home Medications Medication Instructions Recorded Confirmed Type rosuvastatin 5 mg tablet 5 mg PO DAILY 05/02/23 09/14/23 History fluticasone propionate 50 1 spray intranasal BID #3 ea 05/03/23 09/14/23 Rx mcg/actuation nasal spray,suspension verapamil 240 mg 24 hr 240 mg PO BID #180 caps 05/11/23 09/14/23 Rx capsule,extended release cyanocobalamin (vitamin B-12) 1,000 mcg PO DAILY #90 tabs 08/26/23 09/14/23 Rx 1,000 mcg tablet metoprolol tartrate 25 mg tablet 12.5 mg (1/2 x 25 mg) PO BID #60 08/26/23 09/14/23 Rx tabs pantoprazole 40 mg tablet,delayed 40 mg PO BID #60 tabs 08/26/23 09/14/23 Rx release albuterol sulfate 90 mcg/actuation 2 puff inhalation Q6H PRN sob 08/31/23 09/14/23 History aerosol inhaler amoxicillin 875 mg-potassium 1 tab PO TID 09/14/23 09/14/23 History clavulanate 125 mg tablet apixaban 5 mg tablet (Eliquis) 5 mg PO BID 09/14/23 09/14/23 History ferrous sulfate 325 mg PO Q OTHER DAY 09/14/23 09/14/23 History Past Med/Surg History Medical History (Updated 09/14/23 @ 17:27 by Bright Basilio PA-C) Persistent atrial fibrillation Arthritis Anemia Cataract RT EYE (LEFT EYE CATARACT REMOVED) Seasonal allergies Left-sided tinnitus Left asymmetrical SNHL AF (paroxysmal atrial fibrillation) FOLLOWED BY [facility] Hyperlipidemia Benign essential hypertension Surgical History (Updated 09/14/23 @ 17:27 by Bright Basilio PA-C) History of tooth extraction History of cataract surgery LEFT H/O elbow surgery LEFT x4 H/O arthroscopy of knee RIGHT x3 , LEFT x1 H/O arthroscopy of shoulder RT Family History Father Coronary heart disease Myocardial infarction Brother Cancer, Onset Age: 63 Lung cancer met to brain @ age 67 Sister Cancer, Onset Age: 60 unknown primary Sister No problems noted. Other No family history of adverse response to anesthesia No family history of bleeding disorder Denies family history of Ovarian cancer Prostate cancer Breast cancer Colorectal cancer Social History Smoking Status: Never smoker Tobacco Type: Cigarettes Age Started Using Tobacco: 19; Age Quit Using Tobacco: 41; packs per day: 1; Second Hand Exposure: No; Do You Dip or Chew Tobacco: No; Hx Alcohol Use: No Hx Substance Use: No Preferred Language: Serbian Communication Ability: Effective Visual Impairment: No Limitations Hearing Ability: Normal Fence Erector Required: No Beliefs That Will Affect Care: None marital status: Current Living Situation: Spouse Current Living Situation Comment: Independant Living highrise current occupational status: retired 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 Feels Safe at Home: Yes Childhood Exposure to Second-Hand Smoke: Yes caffeine: Yes during the past year weight has: remained stable Dental Care, Regularly: Yes Physical Activity Frequency: Daily Physical Activity Frequency Comment: walking Seatbelt Use: always Sunscreen Use: Yes Do you think of yourself as: straight/heterosexual Assistive Devices: Walker and Wheelchair Physical Exam Physical Exam: Physical Exam: General: In no acute distress, stated age, chronically ill appearing but non- toxic HEENT: Normocephalic, atraumatic, no scleral icterus, pupils around round, symmetrical, and reactive to light,dry mucus membranes, trachea midline, no thyromegaly Chest/Pulm: No respiratory distress, symmetrical chest expansion, decreased breath sounds in the right lower and mid lung leonard, otherwise CTA Cardiac: irregular rate and rhythm, no murmurs noted Abdomen: Negative for ascites and bruising, normoactive bowel sounds, soft, non-tender to palpation throughout, negative cleveland's sign Musculoskeletal: Symmetrical and without signs of acute trauma, upper and lower extremities with full ROM, no atrophy, spasticity, or flaccidity Extremities: Radial, dorsalis pedis, and posterior tibial pulses are intact and symmetrical, 3+ pitting edema noted in the BL LE's Skin: Warm, dry, no rashes , lesions, or scars noted Neuro: Alert and oriented to person, place, month, year, and president, no focal defects, no tremors noted Psych: No acute distress, calm and cooperative during the exam Results & Data Results & Data Vital Signs (Past 12 Hours) Vital Signs Temp Pulse Pulse Resp BP BP Pulse Ox 09/14/23 15:27 84 24 137/85 94 09/14/23 13:26 87 09/14/23 13:19 36.5 C 93 H 20 128/68 91 O2 Del Method 09/14/23 15:27 Room Air 09/14/23 13:26 09/14/23 13:19 Room Air Laboratory Results Abnormal lab results 09/14/23 09/14/23 09/14/23 Range/Units 14:05 14:39 15:52 WBC 13.82 H (4.8-10.8) K/ul RBC 4.17 L (4.70-6.10) M/uL Hgb 10.9 L (14.0-18.0) g/dl Hct 36.4 L (42.0-52.0) % MCHC 29.9 L (32.0-36.0) g/dL RDW Std Deviation 58.2 H (36.4-46.3) fL RDW Coeff of Niles 18.4 H (11.5-14.5) % Plt Count 499 H (130-400) K/uL MPV 9.0 L (9.4-12.4) fL Neut # (Auto) 11.60 H (1.40-6.50) K/uL Lymph # (Auto) 1.07 L (1.20-3.40) K/uL Alger # (Auto) 1.00 H (0.11-0.59) K/uL PT 15.0 H (9.0-12.0) Seconds INR 1.4 H (0.9-1.1) BUN/Creatinine Ratio 32.8 H (10-20) Glucose 104 H (70-99(Fasting)) mg/dl Calcium 8.4 L (8.6-10.3) mg/dl Albumin 3.0 L (3.4-5.0) gm/dl Urine Protein 1+ H (Negative) Urine Ketones 1+ H (Negative) Urine Bilirubin 1+ H (Negative) Urine RBC (Auto) 5-10 H (0-4) /hpf U Hyaline Cast (Auto) 5-10 H (0-5) /lpf U Epithel Cells (Auto) 10-20 H (0-5) /lpf SARS-CoV-2 (PCR) POSITIVE A* (Negative) Diagnostic Findings Chest X-Ray 09/14/23 13:32 XR chest 1V portable HISTORY: weakness COMPARISON: Chest 08/31/2023. FINDINGS: Interval increase in size in the now moderate right pleural effusion. No pneumothorax. No significant left pleural effusion. There are old, healed left-sided rib fractures. No acute fractures identified. The heart remains mildly enlarged. No evidence for pulmonary edema. Right mid to lower lung zone densities favor atelectasis from the pleural effusion. A superimposed pneumonia would be difficult to exclude. IMPRESSION: 1. Interval increase in size in the now moderate right pleural effusion. 2. Right mid to lower lung zone densities favor compressive atelectasis from the pleural effusion. A superimposed pneumonia would be difficult to exclude. ACT 112: Negative or not required by law. Electronically signed by: Bob Lai M.D. 09/14/2023 2:36 PM ECG Additional Comments: Atrial fibrillation with premature ventricular or aberrantly conducted complexes Diffuse Minor Nonspecific T wave abnormality Abnormal ECG When compared with ECG of 31-AUG-2023 11:07, QT has lengthened Confirmed by Teto Hassan ([id number]) on 09/14/2023 3:55:27 PM Code Status & VTE Plan Code Status DNR/DNI VTE Prophylaxis Plan VTE Prophylaxis will be ordered: Yes Supervising Physician Co-Signing Physician Notes I personally saw and examined the patient. I verified all mullins points and agree with Bright Basilio PA-C with the following exceptions and/or additions: 83 year old male presents the ER as PT called EMS as deemed too generally weak to be safe at home at this time. Recently discharged from [facility] on 09/09 for acute cholecystitis without surgery due to poor surgical candidate with biliary stent placement. Generally weak on discharge but slowly progressively worse while at home. No recurrence of abdominal pain, nausea, vomiting or diarrhea. O/E A&Ox3, HS irregular rhythm, regular rate, apical systolic murmur 2/6, Chest - decreased breath sounds posterior base, no crackles or wheezing, Abdo SNT, no CVA tenderness, no focal unilateral weakness, pedal edema 2+ up no knees with knee A/P Hypervolemic state - suspect from liver cirrhosis with recent IV fluids from hospitalization. Unfortunately given IV fluids in the ER. Given his advanced age, no robert catheter in place and currently stable will start diuresis tomorrow rather than overnight with Bumex 0.5 mg IV BID17. TTE ordered to assess for cardiac involvement. Protein/Cr ratio only 0.4 therefore doubtful contributing. Suspect this may be contributing towards his generalized weakness in addition to generalized deconditioning from his recent illness. PT/OT, possible need for placement Right pleural effusion - this appears out of proportion to hypervolemic state and very unilateral. Small last admission but appears much worse currently. Will hold Eliquis pending evaluation by pulmonology. Recent acute cholecystitis with cholangitis (no perforation on repeat CT at [facility]) - no current abdominal pain, LFTs normal, procalcitonin normalized. Continue Augmentin and monitor LFTs/WBC. PG Care Time/CCT Total # of Minutes Spent Total Time Spent with Patient: Total time spent is greater than 50% in coordination of care (as documented) at patient's floor/unit and/or counseling patient: [place] [address] INT INP/OBS CARE 3/75MIN Patient Type Established Medical Decision Making High Complexity Diagnoses Generalized weakness R53.1 History of biliary duct stent placement Z98.890 Pleural effusion, right J90 Fluid overload E87.79 Hypervolemia type: other Elevated INR R79.1 COVID-19 U07.1 Iron deficiency anemia D50.9 AF (paroxysmal atrial fibrillation) I48.0 (4) Fluid overload Hypervolemia type: other Qualified Code(s): E87.79 - Other fluid overload
[2023-09-14 18:26] LABS: Creatinine Urine Random 165.9 mg/dl; Protein Creatinine Ratio Urine 0.4 (0-0.2); Total Protein Urine Random 69.2 mg/dl (0-11.9)
[2023-09-14] MEDS ORDERED: ALBUTEROL HFA 8 GM INHALER INH PRN (19:58)
[2023-09-14] MEDS ORDERED: FERROUS SULFATE 325 MG TAB PO SCH (21:00)
[2023-09-14] MEDS ORDERED: APIXABAN 5 MG TABLET PO SCH (21:00)
[2023-09-14] MEDS: METOPROLOL TARTRATE 25 MG TAB PO SCH (22:12)
[2023-09-14] MEDS: ROSUVASTATIN CALCIUM 5 MG TAB PO SCH (22:12)
[2023-09-14] MEDS: VERAPAMIL HCL 240 MG TABCR PO SCH (22:12)
[2023-09-14] MEDS: PANTOprazole 40 MG TAB PO SCH (22:13)
[2023-09-14] MEDS: AMOXICILLIN/CLAVULANATE 875 MG TAB PO SCH (22:13)
[2023-09-14] MEDS: FLUTICASONE PROPIONATE NA SPR 16 GM BTL SCH (22:13)
[2023-09-15 05:10] LABS: Basophils # (auto) 0.03 K/uL (0.00-0.20); Basophils % (auto) 0.3 %; Eosinophils # (auto) 0.03 K/uL (0.00-0.50); Eosinophils % (auto) 0.3 %; Hemoglobin 9.6 g/dl (14.0-18.0); Immature Granulocytes # (auto) 0.05 K/uL (0.01-0.20); Immature Granulocytes % (auto) 0.4 %; Lymphocytes # (auto) 1.19 K/uL (1.20-3.40); Lymphocytes % (auto) 10.1 %; Mean Corpuscular Hemoglobin 26.6 pg (25.0-34.0); Mean Corpuscular Volume 85.9 fL (80.0-100.0); Monocytes # (auto) 0.91 K/uL (0.11-0.59); Monocytes % (auto) 7.7 %; Neutrophils # (auto) 9.59 K/uL (1.40-6.50); Neutrophils % (auto) 81.2 %; Platelet Count 427 K/uL (130-400); RDW Coefficient of Variation 18.2 % (11.5-14.5); RDW Standard Deviation 57.3 fL (36.4-46.3); Red Blood Count 3.61 M/uL (4.70-6.10)
[2023-09-15 05:27] LABS: Albumin Globulin Ratio 0.9 (0.9-2); Albumin Level 2.5 gm/dl (3.4-5.0); BUN Creatinine Ratio 35.2 (10-20); Bilirubin,Total 0.5 mg/dl (0.2-1.0); Calcium 7.7 mg/dl (8.6-10.3); Creatinine Clr Calc Pharmacy 108.9 ml/min; Est GFR (African American) 113.3 ml/min; Est GFR (Non-African American) 97.8 ml/min; Globulin 2.8 gm/dl (2.5-4.0); Magnesium 1.6 mg/dl (1.7-2.4); Potassium 3.7 mmol/L (3.5-5.1); Total Protein 5.3 gm/dl (6.0-8.3)
[2023-09-15 05:38] LABS: INR 1.4 (0.9-1.1); Prothrombin Time 14.6 Seconds (9.0-12.0)
[2023-09-15] MEDS: FLUTICASONE PROPIONATE NA SPR 16 GM BTL SCH ×2 (08:51→20:06)
[2023-09-15] MEDS: BUMETANIDE 1 MG in SYRINGE 0 ML IV SCH ×2 (08:51→16:04)
[2023-09-15] MEDS: METOPROLOL TARTRATE 25 MG TAB PO SCH ×2 (08:52→20:06)
[2023-09-15] MEDS: CYANOCOBALAMIN (B-12) 500 MCG TABLET PO SCH (08:52)
[2023-09-15] MEDS: AMOXICILLIN/CLAVULANATE 875 MG TAB PO SCH ×3 (08:52→20:05)
[2023-09-15] MEDS: VERAPAMIL HCL 240 MG TABCR PO SCH ×2 (08:52→20:06)
[2023-09-15] MEDS: PANTOprazole 40 MG TAB PO SCH ×2 (08:53→20:06)
[2023-09-15] MEDS: FERROUS SULFATE 325 MG TAB PO SCH ×2 (08:53→16:04)
[2023-09-15] MEDS ORDERED: FUROSEMIDE INJ 20 MG/2 ML VIAL IV SCH (09:00)
[2023-09-15] MEDS ORDERED: BUMETANIDE 0.5 MG in SYRINGE 0 ML IV SCH (09:00)
--- NOTE | 2023-09-15 13:07 | XCELERA ---
[id number] \\[id number]
--- NOTE | 2023-09-15 13:43 | Pulmonary Consultation ---
Date of Consultation September 15, 2023 Assessment & Plan (1) Pleural effusion, right: Plan Impression: 83-year-old male with recent hospitalization for cholangitis status post stent placement now with moderate size right pleural effusion. This may be related to fluid shifts and volume overload versus a sympathetic effusion. Sampling is recommended however the patient had been fully anticoagulated and his anticoagulation was only held yesterday. Recommendations: 1. Pleural effusion: Recommended thoracentesis however will need to give an additional 24 hours to allow Eliquis to get out of his system. Will plan on repeating his chest x-ray in the a.m.. If the effusion persists, we will plan on performing ultrasound-guided catheter thoracentesis on the right with cytologic and microbiologic analysis of the fluid. Additional recommendations will be based on the pleural fluid studies. If this is a transudative effusion related to cirrhosis, diuretics including Aldactone, salt restriction would be recommended. 2. Echocardiogram demonstrated moderate to severe MR with elevated right ventricular systolic pressure. This would be enough to explain the pleural effusion especially in conjunction with the patient's cirrhosis. Given that the patient's MR has progressed from mild to moderate to moderate to severe, cardiology management may be appropriate. Pleural effusion may be likely to recur if optimization of valvular heart disease is not conducted. Management of the patient's other medical issues is deferred to the primary admitting service. History of Present Illness Attending Physician: Jonathan Villagran MD History of Present Illness Asked by hospitalist to assist in evaluation management this patient with the pleural effusion. History is obtained from discussion with the patient as well as review the electronic medical record. The patient is an 83-year-old male with a history of cirrhosis and atrial fibrillation on Eliquis. He presented to the emergency room with weakness. He specifically denies any shortness of breath, cough, or sputum production. Chest x-rays demonstrated a moderate right pleural effusion. The patient does have a history of gallbladder issues and was recently discharged from [facility]. He did complete a course of Augmentin. He underwent biliary stent placement and drainage while he was at [facility]. The patient cannot recall having had prior pleural effusions performed. He is fluid overloaded. He denies fevers chills or night sweats. His most pressing concern appears to be where the remote is for his television. Allergies Allergy/AdvReac Type Severity Reaction Status Date / Time adhesive Allergy Mild skin Verified 09/14/23 16:05 irritation furosemide [From Lasix] Allergy Mild Rash Verified 09/14/23 16:05 latex Allergy Mild SKIN Verified 09/14/23 16:05 IRRIATION TRACI Inhibitors AdvReac Intermediate Cough Verified 09/14/23 16:05 lisinopril AdvReac Intermediate Cough Verified 09/14/23 16:05 pravastatin AdvReac Intermediate myalgias Verified 09/14/23 16:05 Home Medications Medication Instructions Recorded Confirmed Type rosuvastatin 5 mg tablet 5 mg PO DAILY 05/02/23 09/14/23 History fluticasone propionate 50 1 spray intranasal BID #3 ea 05/03/23 09/14/23 Rx mcg/actuation nasal spray,suspension verapamil 240 mg 24 hr 240 mg PO BID #180 caps 05/11/23 09/14/23 Rx capsule,extended release cyanocobalamin (vitamin B-12) 1,000 mcg PO DAILY #90 tabs 08/26/23 09/14/23 Rx 1,000 mcg tablet metoprolol tartrate 25 mg tablet 12.5 mg (1/2 x 25 mg) PO BID #60 08/26/23 09/14/23 Rx tabs pantoprazole 40 mg tablet,delayed 40 mg PO BID #60 tabs 08/26/23 09/14/23 Rx release albuterol sulfate 90 mcg/actuation 2 puff inhalation Q6H PRN sob 08/31/23 09/14/23 History aerosol inhaler amoxicillin 875 mg-potassium 1 tab PO TID 09/14/23 09/14/23 History clavulanate 125 mg tablet apixaban 5 mg tablet (Eliquis) 5 mg PO BID 09/14/23 09/14/23 History ferrous sulfate 325 mg PO Q OTHER DAY 09/14/23 09/14/23 History Patient History Medical History (Updated 09/14/23 @ 17:27 by Bright Basilio PA-C) Persistent atrial fibrillation Arthritis Anemia Cataract RT EYE (LEFT EYE CATARACT REMOVED) Seasonal allergies Left-sided tinnitus Left asymmetrical SNHL AF (paroxysmal atrial fibrillation) FOLLOWED BY [facility] Hyperlipidemia Benign essential hypertension Surgical History (Updated 09/14/23 @ 17:27 by Bright Basilio PA-C) History of tooth extraction History of cataract surgery LEFT H/O elbow surgery LEFT x4 H/O arthroscopy of knee RIGHT x3 , LEFT x1 H/O arthroscopy of shoulder RT Family History (Reviewed 06/03/23 @ 13:08 by Kee Storey Jr, MD, [facility]) Father Coronary heart disease Myocardial infarction Brother Cancer, Onset Age: 63 Lung cancer met to brain @ age 67 Sister Cancer, Onset Age: 60 unknown primary Sister No problems noted. Other No family history of adverse response to anesthesia No family history of bleeding disorder Denies family history of Ovarian cancer Prostate cancer Breast cancer Colorectal cancer Social History (Reviewed 06/03/23 @ 13:08 by Kee Storey Jr, MD, [facility]) Smoking Status: Never smoker Tobacco Type: Cigarettes Age Started Using Tobacco: 19; Age Quit Using Tobacco: 41; packs per day: 1; Second Hand Exposure: No; Do You Dip or Chew Tobacco: No; Tobacco Cessation Education Requested by Patient: No Hx Alcohol Use: No Hx Substance Use: No Preferred Language: Beninese Communication Ability: Effective Visual Impairment: No Limitations Hearing Ability: Normal Emergency Response Officer Required: No Beliefs That Will Affect Care: None marital status: Current Living Situation: Spouse Current Living Situation Comment: Independant Living highrise current occupational status: retired 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 No additions or deletions Physical Exam Constitutional: WD/WN, vitals as above No distress Eyes: PERRL, conjunctivae normal, anicteric sclerae Neck: trachea midline, no thyromegaly Respiratory: no respiratory distress, no labored breathing, no cough and not tachypneic Auscultation: + diminished lung sounds Decreased breath sounds at the right lung base with dullness to percussion Cardiovascular: Rate/Rhythm: + irregularly irregular Heart Sounds: normal S1 and normal S2 Gastrointestinal (Abdomen): Soft, nontender. Nondistended. Bowel sounds present Neurologic: patellar DTR's 2+ bilat, sensation intact Psychiatric: A+Ox3, euthymic affect Results & Data Results & Data Vital Signs (Past 12 Hours) Vital Signs Temp Pulse Pulse Resp BP BP Pulse Ox 09/15/23 12:00 88 25 H 90 09/15/23 11:59 88 L 09/15/23 11:30 104 H 30 H 90 09/15/23 11:00 96 H 24 90 09/15/23 10:30 145 H 20 91 09/15/23 10:00 118/72 09/15/23 10:00 77 24 90 09/15/23 09:30 86 25 H 09/15/23 09:15 89 L 09/15/23 09:01 121/71 09/15/23 09:01 79 24 09/15/23 09:00 77 26 H 09/15/23 09:00 95 09/15/23 08:30 86 21 91 09/15/23 08:04 36.6 C 74 18 113/64 92 09/15/23 08:00 113/64 09/15/23 08:00 14 09/15/23 07:03 67 09/15/23 07:00 63 18 119/55 L 94 O2 Del Method O2 Flow Rate 09/15/23 12:00 09/15/23 11:59 Room Air 09/15/23 11:30 09/15/23 11:00 09/15/23 10:30 09/15/23 10:00 09/15/23 10:00 09/15/23 09:30 09/15/23 09:15 Room Air 09/15/23 09:01 09/15/23 09:01 09/15/23 09:00 09/15/23 09:00 Nasal Cannula 2 09/15/23 08:30 09/15/23 08:04 Nasal Cannula 2 09/15/23 08:00 09/15/23 08:00 09/15/23 07:03 09/15/23 07:00 Critical Care Results & Data Vital Signs (Past 12 Hours) Vital Signs Temp Pulse Pulse Resp BP BP Pulse Ox 09/15/23 12:00 88 25 H 90 09/15/23 11:59 88 L 09/15/23 11:30 104 H 30 H 90 09/15/23 11:00 96 H 24 90 09/15/23 10:30 145 H 20 91 09/15/23 10:00 118/72 09/15/23 10:00 77 24 90 09/15/23 09:30 86 25 H 09/15/23 09:15 89 L 09/15/23 09:01 121/71 09/15/23 09:01 79 24 09/15/23 09:00 77 26 H 09/15/23 09:00 95 09/15/23 08:30 86 21 91 09/15/23 08:04 36.6 C 74 18 113/64 92 09/15/23 08:00 113/64 09/15/23 08:00 14 09/15/23 07:03 67 09/15/23 07:00 63 18 119/55 L 94 O2 Del Method O2 Flow Rate 09/15/23 12:00 09/15/23 11:59 Room Air 09/15/23 11:30 09/15/23 11:00 09/15/23 10:30 09/15/23 10:00 09/15/23 10:00 09/15/23 09:30 09/15/23 09:15 Room Air 09/15/23 09:01 09/15/23 09:01 09/15/23 09:00 09/15/23 09:00 Nasal Cannula 2 09/15/23 08:30 09/15/23 08:04 Nasal Cannula 2 09/15/23 08:00 09/15/23 08:00 09/15/23 07:03 09/15/23 07:00 Lab & Micro Results (Past 24 Hours) RBC 3.61 M/uL (4.70-6.10) L 09/15/23 WBC 11.80 K/ul (4.8-10.8) H 09/15/23 Hgb 9.6 g/dl (14.0-18.0) L 09/15/23 Hct 31.0 % (42.0-52.0) L 09/15/23 MCV 85.9 fL (80.0-100.0) 09/15/23 MCH 26.6 pg (25.0-34.0) 09/15/23 MCHC 31.0 g/dL (32.0-36.0) L 09/15/23 RDW Standard Deviation 57.3 fL (36.4-46.3) H 09/15/23 RDW Coefficient of Variation 18.2 % (11.5-14.5) H 09/15/23 Plt Count 427 K/uL (130-400) H 09/15/23 MPV 9.0 fL (9.4-12.4) L 09/15/23 Neutrophils (%) (Auto) 81.2 % 09/15/23 Lymphocytes (%) (Auto) 10.1 % 09/15/23 Monocytes # (Auto) 0.91 K/uL (0.11-0.59) H 09/15/23 Eosinophils # (Auto) 0.03 K/uL (0.00-0.50) 09/15/23 Immature Granulocyte % (Auto) 0.4 % 09/15/23 Neutrophils # (Auto) 9.59 K/uL (1.40-6.50) H 09/15/23 Lymphocytes # (Auto) 1.19 K/uL (1.20-3.40) L 09/15/23 Monocytes # (Auto) 0.91 K/uL (0.11-0.59) H 09/15/23 Eosinophils # (Auto) 0.03 K/uL (0.00-0.50) 09/15/23 Basophils # (Auto) 0.03 K/uL (0.00-0.20) 09/15/23 Immature Granulocyte # (Auto) 0.05 K/uL (0.01-0.20) 4 Na 136 mmol/L (136-145) 09/15/23 K 3.7 mmol/L (3.5-5.1) 09/15/23 Cl 105 mmol/L (98-107) 09/15/23 CO2 22 mmol/L (21-32) 09/15/23 Anion Gap 9 (3-11) 09/15/23 BUN 19 mg/dl (6-23) 09/15/23 Creatinine 0.54 mg/dl (0.6-1.4) L 09/15/23 Estimated GFR ( Amer) 113.3 ml/min 09/15/23 Estimated GFR (Non-Af Amer) 97.8 ml/min 09/15/23 BUN/Creatinine Ratio 35.2 (10-20) H 09/15/23 Glu 85 mg/dl (70-99(Fasting)) 09/15/23 Ca 7.7 mg/dl (8.6-10.3) L 09/15/23 Total Bilirubin 0.5 mg/dl (0.2-1.0) 09/15/23 AST 31 U/L (13-39) 09/15/23 ALT 24 U/L (7-52) 09/15/23 Alkaline Phosphatase 87 U/L (34-104) 09/15/23 TP 5.3 gm/dl (6.0-8.3) L 09/15/23 Albumin 2.5 gm/dl (3.4-5.0) L 09/15/23 Globulin 2.8 gm/dl (2.5-4.0) 09/15/23 Albumin/Globulin Ratio 0.9 (0.9-2) 09/15/23 Mg 1.6 mg/dl (1.7-2.4) L 09/15/23 04:31 Calcium Level 7.7 mg/dl (8.6-10.3) L 09/15/23 04:31 Prothromb Time International Ratio 1.4 (0.9-1.1) H 09/15/23 04 :31 Diagnostic Findings (Past 24 Hours) Chest X-Ray 09/14/23 13:32 XR chest 1V portable HISTORY: weakness COMPARISON: Chest 08/31/2023. FINDINGS: Interval increase in size in the now moderate right pleural effusion. No pneumothorax. No significant left pleural effusion. There are old, healed left-sided rib fractures. No acute fractures identified. The heart remains mildly enlarged. No evidence for pulmonary edema. Right mid to lower lung zone densities favor atelectasis from the pleural effusion. A superimposed pneumonia would be difficult to exclude. IMPRESSION: 1. Interval increase in size in the now moderate right pleural effusion. 2. Right mid to lower lung zone densities favor compressive atelectasis from the pleural effusion. A superimposed pneumonia would be difficult to exclude. ACT 112: Negative or not required by law. Electronically signed by: Bob Lai M.D. 09/14/2023 2:36 PM I & O Totals 24 Hours 09/14/23 09/15/23 09/16/23 06:59 06:59 06:59 Intake Total 1000 / 1000 Output Total 50 / 50 401 / 401 Balance 950 / 950 -401 / -401 Cumulative 09/14/23 13:04 thru 09/15/23 11:21 Intake Total 1000 Output Total 451 Balance 549 RT Ventilator Mngmt (Last Documented) Ventilator Ordered Settings Respiratory Rate 25 09/15/23 12:00 Ventilator - PT Measurements Respiratory Rate 25 PG Care Time/CCT Total # of Minutes Spent Total Time Spent with Patient: Total time spent is greater than 50% in coordination of care (as documented) at patient's floor/unit and/or counseling patient: Coding Level of Care Code 42740 INT INP/OBS CARE 2/55MIN Diagnoses Pleural effusion, right J90
[2023-09-15] MEDS ORDERED: FUROSEMIDE 40 MG/4 ML VIAL IV SCH (13:45)
[2023-09-15] MEDS: SPIRONOLACTONE 25 MG TAB PO SCH (14:30)
--- NOTE | 2023-09-15 15:09 | Hospitalist Progress Note ---
Date of Service September 15, 2023 Assessment & Plan (1) Acute diastolic CHF (congestive heart failure): Plan: With associated large right pleural effusion. Parenteral Bumex diuresis. Monitor intake and output. Serial chest x-ray. Repeat limited cardiac echo. (2) Acute respiratory failure with hypoxia: Plan: Supplemental oxygen per nasal cannula to maintain saturation greater than 90%. Wean off as tolerated. Treat CHF which is causing the hypoxia (3) Generalized weakness: Plan: After recent hospitalization and subsequent common bile duct stent placement at [facility]. OT and PT assessments ordered. (4) COVID-19: Plan: Nasal swab positivity persists after infection that dates to last August. No indication for treatment or isolation at this time. (5) AF (paroxysmal atrial fibrillation): Plan: Currently in normal sinus rhythm. Eliquis will be discontinued permanently due to high risk in this age group with cirrhosis, auto coagulopathy, esophageal varices, recent GI bleeding. Plan He will need SNF or IPR placement at discharge. OT and PT assessments requested Admission and Anticipated Discharge Date Admission Date: September 14, 2023 Subjective Alert and oriented. He was recently sent to [facility] for treatment of choledocholithiasis with suspected underlying acute cholecystitis. He had a CBD stent placed while at [facility] but did not need cholecystectomy. However, he has developed acute diastolic CHF with large right pleural effusion from IV fluids. Cardiac echo reveals normal ejection fraction with moderately severe MR. He is on parenteral Bumex therapy. He previously developed a rash from Lasix therapy. He is currently on oxygen at 2 L/min. Eliquis will be discontinued indefinitely due to the high risk associated with cirrhosis, esophageal varices, and recent GI bleeding. He was COVID positive last August and no longer requires isolation. He is markedly weak and he failed at home after discharge from [facility]. He will need SNF or IPR placement at the time of discharge next Tuesday or early thereafter Review of Systems 2 Review of Systems: Constitutional-no fever or chills ENT-no blurred vision, no double vision, no epistaxis, no sore throat Respiratory-no cough, no wheezing. Dyspnea on exertion Cardiac-no palpitations, no chest pain, no syncope GI-no nausea, vomiting, diarrhea, melena, hematochezia -no urinary retention, no urinary incontinence, no dysuria, no hematuria Musculoskeletal-no joint pain, no muscle tenderness Skin-no bruising, no rashes, no pruritus Neuro-generalized weakness. No focal deficits Psych-no depression, no anxiety Physical Exam 2 Physical Exam: General-alert and oriented x3, no fever, no chills HEENT-head atraumatic and normocephalic, pupils equal and reactive to light, extraocular muscles intact Neck-no lymphadenopathy or thyromegaly, trachea midline Chest-diminished breath sounds at the right base. Bilateral inspiratory rales. No wheezing Cardiac-regular rate and rhythm, normal S1 and S2 Abdomen-normal bowel sounds, nontender, no hepatosplenomegaly Extremities-1+ pitting edema bilateral lower extremities below the knees Neuro-cranial nerves II through XII intact, motor and sensory function within normal limits, strength symmetrical, no focal deficits Psych-normal affect, normal mood Results & Data Results & Data Vital Signs (Past 12 Hours) Vital Signs Temp Pulse Pulse Resp BP BP Pulse Ox 09/15/23 12:00 88 25 H 90 09/15/23 11:59 88 L 09/15/23 11:30 104 H 30 H 90 09/15/23 11:00 96 H 24 90 09/15/23 10:30 145 H 20 91 09/15/23 10:00 118/72 09/15/23 10:00 77 24 90 09/15/23 09:30 86 25 H 09/15/23 09:15 89 L 09/15/23 09:01 121/71 09/15/23 09:01 79 24 09/15/23 09:00 77 26 H 09/15/23 09:00 95 09/15/23 08:30 86 21 91 09/15/23 08:04 36.6 C 74 18 113/64 92 09/15/23 08:00 113/64 09/15/23 08:00 14 09/15/23 07:03 67 09/15/23 07:00 63 18 119/55 L 94 O2 Del Method O2 Flow Rate 09/15/23 12:00 09/15/23 11:59 Room Air 09/15/23 11:30 09/15/23 11:00 09/15/23 10:30 09/15/23 10:00 09/15/23 10:00 09/15/23 09:30 09/15/23 09:15 Room Air 09/15/23 09:01 09/15/23 09:01 09/15/23 09:00 09/15/23 09:00 Nasal Cannula 2 09/15/23 08:30 09/15/23 08:04 Nasal Cannula 2 09/15/23 08:00 09/15/23 08:00 09/15/23 07:03 09/15/23 07:00 Laboratory Results 09/15/23 04:31 09/15/23 04:31 PG Care Time/CCT Total # of Minutes Spent Total Time Spent with Patient: Total time spent is greater than 50% in coordination of care (as documented) at patient's floor/unit and/or counseling patient: Coding Level of Care Code 75845 SUB INP/OBS CARE 3/50MIN Diagnoses Acute diastolic CHF (congestive heart failure) I50.31 Acute respiratory failure with hypoxia J96.01 Generalized weakness R53.1 COVID-19 U07.1 AF (paroxysmal atrial fibrillation) I48.0
[2023-09-16 05:21] LABS: Basophils # (auto) 0.03 K/uL (0.00-0.20); Basophils % (auto) 0.2 %; Eosinophils # (auto) 0.02 K/uL (0.00-0.50); Eosinophils % (auto) 0.1 %; Hematocrit (blood only) 34.9 % (42.0-52.0); Hemoglobin 10.3 g/dl (14.0-18.0); Immature Granulocytes # (auto) 0.08 K/uL (0.01-0.20); Immature Granulocytes % (auto) 0.6 %; Lymphocytes # (auto) 1.37 K/uL (1.20-3.40); Mean Corpuscular Hemoglobin 25.5 pg (25.0-34.0); Mean Corpuscular Hgb Conc 29.5 g/dL (32.0-36.0); Mean Corpuscular Volume 86.4 fL (80.0-100.0); Mean Platelet Volume 9.2 fL (9.4-12.4); Monocytes # (auto) 0.97 K/uL (0.11-0.59); Monocytes % (auto) 7.1 %; Neutrophils # (auto) 11.19 K/uL (1.40-6.50); Platelet Count 448 K/uL (130-400); RDW Coefficient of Variation 18.2 % (11.5-14.5); RDW Standard Deviation 57.4 fL (36.4-46.3); Red Blood Count 4.04 M/uL (4.70-6.10); White Blood Count 13.66 K/ul (4.8-10.8)
[2023-09-16 05:40] LABS: Calcium 7.8 mg/dl (8.6-10.3); Potassium 3.3 mmol/L (3.5-5.1)
[2023-09-16 05:45] LABS: BUN Creatinine Ratio 24.3 (10-20); Creatinine Clr Calc Pharmacy 79.5 ml/min; Est GFR (African American) 99.6 ml/min; Est GFR (Non-African American) 85.9 ml/min
--- NOTE | 2023-09-16 08:29 | XRay Report ---
SINGLE VIEW CHEST CLINICAL HISTORY: Pleural effusion. FINDINGS: An AP upright chest radiograph is compared to study dated 09/14/2023. The examination is deg raded by portable technique and apical lordotic positioning. The heart is enlarged noting atheroscler otic calcification of the thoracic aorta. The pulmonary vasculature is noncongested. There is a moder ate to large right pleural effusion with atelectasis/consolidation of the right lower lung. This has increased in size from previous. There is mild left basilar atelectasis. No pneumothorax is seen. The skeletal structures are osteopenic. The bony thorax is grossly intact. IMPRESSION: 1. Cardiomegaly without radiographic evidence of congestive failure. 2. Moderate to large right pleural effusion with atelectasis/consolidation of the right lower lung. T his has increased in size from previous. ACT 112: Negative or not required by law. Electronically signed by: Scooter Ryder M.D. 09/16/2023 8:28 AM
[2023-09-16] MEDS: FERROUS SULFATE 325 MG TAB PO SCH ×2 (08:35→17:34)
[2023-09-16] MEDS: AMOXICILLIN/CLAVULANATE 875 MG TAB PO SCH (08:35)
[2023-09-16] MEDS: CYANOCOBALAMIN (B-12) 500 MCG TABLET PO SCH (08:35)
[2023-09-16] MEDS: VERAPAMIL HCL 240 MG TABCR PO SCH ×2 (08:35→21:16)
[2023-09-16] MEDS: FLUTICASONE PROPIONATE NA SPR 16 GM BTL SCH ×2 (08:36→21:14)
[2023-09-16] MEDS: BUMETANIDE 1 MG in SYRINGE 0 ML IV SCH ×2 (08:36→17:38)
[2023-09-16] MEDS: PANTOprazole 40 MG TAB PO SCH ×2 (08:36→21:16)
[2023-09-16] MEDS: POTASSIUM CHLORIDE CRTAB 20 MEQ TABCR PO SCH ×2 (08:36→21:14)
[2023-09-16] MEDS: METOPROLOL TARTRATE 25 MG TAB PO SCH ×2 (08:36→21:14)
[2023-09-16] MEDS: SPIRONOLACTONE 25 MG TAB PO SCH (08:36)
--- NOTE | 2023-09-16 10:55 | CT Scan Report ---
CT SCAN OF THE CHEST WITHOUT IV CONTRAST CLINICAL HISTORY: Dyspnea. Pleural effusion. COMPARISON STUDY: Chest x-ray dated 09/16/2023. Abdominal CT dated 08/31/2023. TECHNIQUE: CT scan of the thorax was performed from the thoracic inlet to the upper abdomen. Images are reviewed in the axial, sagittal, and coronal planes. IV contrast was not administered for this ex amination as per the referring clinician. A dose lowering technique was utilized adhering to the derek Mercado. CT DOSE: 409.56 mGy.cm FINDINGS: Thyroid: Imaged portions of the thyroid gland are normal in size and attenuation. Thoracic aorta: There is atherosclerotic calcification of the thoracic aorta, which is normal in chantelle elicia and demonstrates variant 3-vessel arch anatomy. There is a bovine arch, and the left vertebral ar mera arises directly from the thoracic aorta. Heart: The heart is enlarged and without pericardial effusion. The coronary arteries are densely calc ified. Lungs and pleural spaces: There is a large right pleural effusion with atelectasis/consolidation of t he right lower lung. The right upper lobe is partially aerated. There is trace left pleural effusion and left basilar atelectasis. The trachea and central airways are clear. A punctate calcified granulo ma is seen in the left lower lobe. Mediastinum: There is no mediastinal lymphadenopathy. Yesenia: Not well assessed without IV contrast. Axillae: There is no axillary lymphadenopathy. Upper abdomen: There is a small hiatal hernia. The liver is cirrhotic in morphology. There is a large subcapsular fluid collection in the superior right lobe of the diaphragm. This contains foci of gas and measures approximately 11 x 6 cm in axial dimension. Skeletal structures: The skeletal structures are osteopenic. No lytic or blastic bony lesions are see n. Mild degenerative change and scoliosis is noted in the thoracic spine. Arthritic change is seen i n the shoulders. There are chronic/healed bilateral rib fractures. IMPRESSION: 1. There is a large subcapsular gas and fluid-containing collection in the superior right lobe of the liver. This likely represents an abscess or infected biloma. Clinical correlation will be essential. 2. Large right pleural effusion with atelectasis/consolidation of the right lower lung. Correlate cli nically for evidence of pneumonia. 3. Trace pleural effusion is seen on the left. 4. Cirrhotic liver morphology. 5. Additional findings as above. ACT 112: Negative or not required by law. Electronically signed by: Scooter Ryder M.D. 09/16/2023 10:53 AM
[2023-09-16] MEDS ORDERED: PIPERACILLIN/TAZOBACTAM 4.5 GM in DEXTROSE 5% MINI-B 100 ML IV SCH (12:00)
[2023-09-16] MEDS ORDERED: PIPER/TAZO 4.5g in D5W MINI-B 100 ML IV ONE (12:00)
--- NOTE | 2023-09-16 14:05 | Gastrointestinal Consultation ---
Date of Consultation September 16, 2023 Assessment & Plan (1) Generalized weakness: (2) History of biliary duct stent placement: (3) Infected fluid collection without fistula: Pt is a 83 yo male w hx of cholecystitis, not deemed to be a good surgical candidate; s/p ERCP w transpapillary gallbladder drainage w double pigtail done on 09/06/2023, found to have large (11 x 6 cm) infected biloma vs abscess in R superior liver region. - Obtain CT abd/pelvis - Hold Eliquis - Recommend Infectious Disease consult - Touch base with Interventional Radiology once CT abd/pelvis obtained to determine if fluid collection would be amendable to drainage here - Zosyn IV coverage Supervising Physician Co-Signing Physician Notes Attending attestation I have seen, examined this patient, and agree with the findings and above by our mid-level provider MITCHELL Domínguez, with the following additions: Has an apparent liver abscess, will need dedicated abd ct Discussed with Richard Gonzalez in IR for possible drain after repeat CT scan IV abx Id consult LFT's normal and has pigtail in gallbladder for transpapillary drainage, if develops pain, fever then will need re-eval for cholecystectomy or cholecystostomy tube Hold anticoagulation for now VMITCHELL, with the following additions: History of Present Illness Reason for Consultation: Eval for possible liver abscess Requesting Physician: Dr. Jonathan Villagran Attending Physician: Dr. Anup Rodgers History of Present Illness Pt is a 83 yo male w PMHx of cirrhosis, grade I esophageal varices, Afib on Eliquis, HLD, HTN, cholecystitis how was admitted 2 days ago w weakness. He was just DC'd from [facility] on 09/09/2023. Was previously transferred there due for concerns for cholecystitis w perforation. Not a surgical candidate and originally was planned to have Axios stent placement for gallbladder drainage. However he had ascites present and thus Axios stent was unable to be placed. He instead had transpapillary biliary drainage w double pigtail stent placement via ERCP on 09/06/2023. On evaluation here, he was found to have mild leukocytosis w WBC of 13, H/H 10/34, Plt 448, LFTs normal. He denies abd pain, n/v, or changes in his bowel habits. Abd exam benign today. CT chest was obtained because of dyspnea and it showed large subcapsular gas and fluid containing collection in superior R lobe liver concerning for abscess or infected biloma. He also has large R pleural effusion. COVID +, but may be residual from infection late August. Allergies Allergy/AdvReac Type Severity Reaction Status Date / Time adhesive Allergy Mild skin Verified 09/14/23 16:05 irritation furosemide [From Lasix] Allergy Mild Rash Verified 09/14/23 16:05 latex Allergy Mild SKIN Verified 09/14/23 16:05 IRRIATION TRACI Inhibitors AdvReac Intermediate Cough Verified 09/14/23 16:05 lisinopril AdvReac Intermediate Cough Verified 09/14/23 16:05 pravastatin AdvReac Intermediate myalgias Verified 09/14/23 16:05 Home Medications Medication Instructions Recorded Confirmed Type rosuvastatin 5 mg tablet 5 mg PO DAILY 05/02/23 09/14/23 History fluticasone propionate 50 1 spray intranasal BID #3 ea 05/03/23 09/14/23 Rx mcg/actuation nasal spray,suspension verapamil 240 mg 24 hr 240 mg PO BID #180 caps 05/11/23 09/14/23 Rx capsule,extended release cyanocobalamin (vitamin B-12) 1,000 mcg PO DAILY #90 tabs 08/26/23 09/14/23 Rx 1,000 mcg tablet metoprolol tartrate 25 mg tablet 12.5 mg (1/2 x 25 mg) PO BID #60 08/26/23 09/14/23 Rx tabs pantoprazole 40 mg tablet,delayed 40 mg PO BID #60 tabs 08/26/23 09/14/23 Rx release albuterol sulfate 90 mcg/actuation 2 puff inhalation Q6H PRN sob 08/31/23 09/14/23 History aerosol inhaler amoxicillin 875 mg-potassium 1 tab PO TID 09/14/23 09/14/23 History clavulanate 125 mg tablet apixaban 5 mg tablet (Eliquis) 5 mg PO BID 09/14/23 09/14/23 History ferrous sulfate 325 mg PO Q OTHER DAY 09/14/23 09/14/23 History Patient History Medical History COVID-19 Hyponatremia JESSIE (acute kidney injury) Esophageal varices UGIB (upper gastrointestinal bleed) Acute blood loss anemia Persistent atrial fibrillation Arthritis Anemia Cataract RT EYE (LEFT EYE CATARACT REMOVED) Seasonal allergies Left-sided tinnitus Left asymmetrical SNHL AF (paroxysmal atrial fibrillation) FOLLOWED BY [facility] Hyperlipidemia Benign essential hypertension Surgical History History of tooth extraction History of cataract surgery LEFT H/O elbow surgery LEFT x4 H/O arthroscopy of knee RIGHT x3 , LEFT x1 H/O arthroscopy of shoulder RT Family History Father Coronary heart disease Myocardial infarction Brother Cancer, Onset Age: 63 Lung cancer met to brain @ age 67 Sister Cancer, Onset Age: 60 unknown primary Sister No problems noted. Other No family history of adverse response to anesthesia No family history of bleeding disorder Denies family history of Ovarian cancer Prostate cancer Breast cancer Colorectal cancer Social History Smoking Status: Never smoker Tobacco Type: Cigarettes Age Started Using Tobacco: 19; Age Quit Using Tobacco: 41; packs per day: 1; Second Hand Exposure: No; Do You Dip or Chew Tobacco: No; Tobacco Cessation Education Requested by Patient: No Hx Alcohol Use: No Hx Substance Use: No Preferred Language: Nicaraguan Communication Ability: Effective Visual Impairment: No Limitations Hearing Ability: Normal Aviation Manager Required: No Beliefs That Will Affect Care: None marital status: Current Living Situation: Spouse Current Living Situation Comment: Independant Living highrise current occupational status: retired 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 Other Information That Helps Us Care for You: No other: former Feels Safe at Home: Yes Safety Concerns: Feels Safe At This Time Childhood Exposure to Second-Hand Smoke: Yes caffeine: Yes during the past year weight has: remained stable Dental Care, Regularly: Yes Physical Activity Frequency: Daily Physical Activity Frequency Comment: walking Seatbelt Use: always Sunscreen Use: Yes Do you think of yourself as: straight/heterosexual Assistive Devices: Walker and Wheelchair Review of Systems Review of Systems: All systems reviewed & are unremarkable except as noted in HPI & below Physical Exam Constitutional: WD/WN, vitals as above + thin, well groomed, cooperative and comfortable Eyes: PERRL, conjunctivae normal, anicteric sclerae ENMT: external ear and nose normal, oropharynx normal Respiratory: normal respiratory effort, lungs clear to auscultation Cardiovascular: RRR, no murmur, no edema Gastrointestinal (Abdomen): normal bowel sounds, soft, nontender, no hepatosplenomegaly Skin: no rashes, warm and dry no jaundice Psychiatric: A+Ox3, euthymic affect Lymphatic: no lymphedema Results & Data Vital Signs (Past 12 Hours) Vital Signs Pulse Pulse Resp BP BP Pulse Ox O2 Del Method 09/16/23 12:00 71 26 H 90 09/16/23 11:00 75 25 H 91 09/16/23 09:00 88 20 94 09/16/23 09:00 123/80 09/16/23 08:00 129/82 09/16/23 08:00 93 H 24 91 09/16/23 08:00 88 20 129/82 92 Nasal Cannula 09/16/23 07:19 91 H 09/16/23 07:00 103 H 18 93 09/16/23 07:00 116/71 09/16/23 06:00 117 H 17 138/84 93 Nasal Cannula 09/16/23 05:00 115 H 20 118/65 92 Nasal Cannula 09/16/23 04:00 113 H 22 115/71 94 Nasal Cannula 09/16/23 03:00 114 H 23 109/68 93 Nasal Cannula O2 Flow Rate 09/16/23 12:00 09/16/23 11:00 09/16/23 09:00 09/16/23 09:00 09/16/23 08:00 09/16/23 08:00 09/16/23 08:00 2 09/16/23 07:19 09/16/23 07:00 09/16/23 07:00 09/16/23 06:00 2 09/16/23 05:00 2 09/16/23 04:00 2 09/16/23 03:00 2
--- NOTE | 2023-09-16 14:46 | Hospitalist Progress Note ---
Date of Service September 16, 2023 Assessment & Plan (1) Acute diastolic CHF (congestive heart failure): Plan: With associated large right pleural effusion. Improved overall with Bumex diuresis. Left lung looks better but right lung continues to show considerable pleural effusion with elevated diaphragm. Unfortunately, he may have a subcapsular hepatic abscess here. Limited follow-up echo reveals normal ejection fraction with moderate to severe mitral regurgitation (2) Hepatic abscess: Plan: Suggested on chest CT scan. GI consultation appreciated. Infectious disease consult pending. He is now on Zosyn. This may be amenable to IR drainage. Eliquis was discontinued on admission. He is now on Zosyn, day 1 (3) Acute respiratory failure with hypoxia: Plan: Supplemental oxygen per nasal cannula to maintain saturation greater than 90%. Wean off as tolerated. Treat CHF and right pleural effusion which is causing the hypoxia. Currently on 2 L per nasal cannula (4) Generalized weakness: Plan: After recent hospitalization and subsequent common bile duct stent placement at [facility]. OT and PT assessments ordered. (5) COVID-19: Plan: Nasal swab positivity persists after infection that dates to last August. No indication for treatment or isolation at this time. (6) AF (paroxysmal atrial fibrillation): Plan: Currently in normal sinus rhythm. Eliquis has been discontinued permanently due to high risk in this age group with cirrhosis, auto coagulopathy, esophageal varices, recent GI bleeding. Plan He will need SNF or IPR placement at discharge. OT and PT assessments requested Admission and Anticipated Discharge Date Admission Date: September 14, 2023 Subjective Alert and oriented. No distress. Chest x-ray reveals continued effusion on the right side which is massive. Left lung looks better. Incredibly, he is relatively asymptomatic. Chest CT scan reveals the possibility of subcapsular liver abscess. Incredibly, he has no symptoms. GI consult appreciated. CT scanning of the abdomen is pending. Infectious disease consult requested. He is now on Zosyn. Review of Systems 2 Review of Systems: Constitutional-no fever or chills ENT-no blurred vision, no double vision, no epistaxis, no sore throat Respiratory-no cough, no wheezing. Dyspnea on exertion Cardiac-no palpitations, no chest pain, no syncope GI-no nausea, vomiting, diarrhea, melena, hematochezia -no urinary retention, no urinary incontinence, no dysuria, no hematuria Musculoskeletal-no joint pain, no muscle tenderness Skin-no bruising, no rashes, no pruritus Neuro-generalized weakness. No focal deficits Psych-no depression, no anxiety Physical Exam 2 Physical Exam: General-alert and oriented x3, no fever, no chills HEENT-head atraumatic and normocephalic, pupils equal and reactive to light, extraocular muscles intact Neck-no lymphadenopathy or thyromegaly, trachea midline Chest-diminished breath sounds at the right base. Bilateral inspiratory rales. No wheezing Cardiac-regular rate and rhythm, normal S1 and S2 Abdomen-normal bowel sounds, nontender, no hepatosplenomegaly Extremities-1+ pitting edema bilateral lower extremities below the knees Neuro-cranial nerves II through XII intact, motor and sensory function within normal limits, strength symmetrical, no focal deficits Psych-normal affect, normal mood Results & Data Results & Data Vital Signs (Past 12 Hours) Vital Signs Pulse Pulse Resp BP BP Pulse Ox O2 Del Method 09/16/23 12:00 71 26 H 90 09/16/23 11:00 75 25 H 91 09/16/23 09:00 88 20 94 09/16/23 09:00 123/80 09/16/23 08:00 129/82 09/16/23 08:00 93 H 24 91 09/16/23 08:00 88 20 129/82 92 Nasal Cannula 09/16/23 07:19 91 H 09/16/23 07:00 103 H 18 93 09/16/23 07:00 116/71 09/16/23 06:00 117 H 17 138/84 93 Nasal Cannula 09/16/23 05:00 115 H 20 118/65 92 Nasal Cannula 09/16/23 04:00 113 H 22 115/71 94 Nasal Cannula 09/16/23 03:00 114 H 23 109/68 93 Nasal Cannula O2 Flow Rate 09/16/23 12:00 09/16/23 11:00 09/16/23 09:00 09/16/23 09:00 09/16/23 08:00 09/16/23 08:00 09/16/23 08:00 2 09/16/23 07:19 09/16/23 07:00 09/16/23 07:00 09/16/23 06:00 2 09/16/23 05:00 2 09/16/23 04:00 2 09/16/23 03:00 2 Laboratory Results 09/16/23 04:38 09/16/23 04:38 PG Care Time/CCT Total # of Minutes Spent Total Time Spent with Patient: Total time spent is greater than 50% in coordination of care (as documented) at patient's floor/unit and/or counseling patient: Coding Level of Care Code 03019 SUB INP/OBS CARE 3/50MIN Diagnoses Acute diastolic CHF (congestive heart failure) I50.31 Hepatic abscess K75.0 Acute respiratory failure with hypoxia J96.01 Generalized weakness R53.1 COVID-19 U07.1 AF (paroxysmal atrial fibrillation) I48.0
--- NOTE | 2023-09-16 16:26 | Infectious Disease Consult ---
Date of Consultation September 16, 2023 Assessment & Plan (1) Hepatic abscess: (2) Acute cholecystitis: Plan 83 yo M with history of cirrhosis with esophageal varices, upper GIB, paroxysmal afib on Eliquis, HLD, HTN, recent admission for acute cholecystitis with possible perforation who presented on 09/14 for generalized weakness. Pt was recently admitted to [facility] 08/31 - 09/01 with acute cholecystitis with concern for perforation and was transferred to [facility] for surgical intervention. Per [facility] [place], a repeat CT there did not show signs of perforation. He was started on zosyn, deemed to be a poor surgical candidate, underwent GI transpapillary stent placement and drainage on 09/06/22, and was discharged with a 10 day course of amox/clav through 09/19. On presentation 09/14, pt was afebrile, with WBC 13.82, normal LFTs, COVID-19 positive (also positive on 08/31/23). CXR with interval increase in now moderate R pleural effusion. Pt was continued on amox/clav from his recent admission. Pulm was consulted for the moderate pleural effusion, recommended thoracentesis. A repeat CXR on 09/16 showed a moderate to large R pleural effusion with atelectasis/consolidation of the R lower lung, increased from prior. A CT chest on 09/16 showed a large subcap sular gas and fluid containing collection in the superior R lobe of the liver likely representing abscess or infected biloma, large R pleural effusion with atelectasis/consolidation of R lower lung. GI was consulted for the concern for liver abscess vs biloma, recommended CT A/P and discussing with IR. Antibiotics were switched to pip-tazo. CT A/P shows perforated acute cholecystitis which connects to the R perihepatic/subcapsular 14 x 12 x 6 cm abscess, increased in size in the interval, percutaneous drainage recommended. Micro: 09/14 BCx x2: NGTD Abx: Pip-tazo 09/16 - present Amox/clav 09/14 - 09/16 Problems: #Perforated acute cholecystitis c/b perihepatic/subcapsular abscess Recommendations: -Continue pip-tazo -IR consult; if drainage is performed, please send fluid for aerobic, anaerobic cultures Will continue to follow. Please note that ID does not round or write notes over the weekend (including the holiday on 09/19/23). If questions or concerns arise, please contact the Infectious Disease Call Center and ask to speak with the covering ID physician. I will be back on service on 09/20/23. Consultation Information This patient recommendation is based on a telemedicine consult request which was completed asynchronously through chart review and information provided by the primary physician. The patient was not seen or examined today. The evaluation is consultative in nature and all patient care and treatment decisions can either be accepted or rejected by the patient's primary hospital-based treating physician using their own independent medical judgment for their patient. Policyholder Information Clerk contact information: Please call [facility] Call Center [phone]. (Phone Number For Physician Use Only) Time Spent Reviewing Chart: 31+ minutes History of Present Illness Reason for Consultation: Subcapsular hepatic abscess Attending Physician: Jonathan Villagran MD History of Present Illness 83 yo M with history of cirrhosis with esophageal varices, history of upper GIB, paroxysmal afib on Eliquis, HLD, HTN, recent episode of acute cholecystitis with possible perforation who presented on 09/14 for generalized weakness. Pt was recently admitted from 08/31 - 09/01 with acute cholecystitis with concern for perforation and was transferred to [facility] for surgical intervention. Per [facility] [place] summary, a repeat CT did not show signs of perforation. He was started on zosyn, deemed to be a poor surgical candidate, underwent GI transpapillary stent placement and drainage on 09/06/22, and was discharged with a 10 day course of amox/clav through 09/19. On presentation 09/14, pt was afebrile, VSS. Labs showed WBC 13.82, normal LFTs, COVID-19 positive (also positive on 08/31/23). CXR with interval increase in now moderate R pleural effusion, R mid to lower lung zone densities favoring compressive atelectasis from pleural effusion, difficult to exclude pneumonia. Pt was continued on amox/clav from his recent admission. Pulm was consulted for the moderate pleural effusion, recommended thoracentesis. Noted to have moderate to severe MR on TTE, which could explain the pleural effusion. A repeat CXR on 09/16 showed a moderate to large R pleural effusion with atelectasis/consolidation of the R lower lung, increased from prior. A CT chest on 09/16 showed a large subcapsular gas and fluid containing collection in the superior R lobe of the liver likely representing abscess or infected biloma, large R pleural effusion with atelectasis/consolidation of R lower lung. GI was consulted for the concern for liver abscess vs biloma, recommended CT A/P and discussing with IR. Antibiotics were switch to pip-tazo. CT A/P shows perforated acute cholecystitis which connects to the R perihepatic/subcapsular 14 x 12 x 6 cm abscess, increased in size in the interval, percutaneous drainage recommended. Allergies Allergy/AdvReac Type Severity Reaction Status Date / Time adhesive Allergy Mild skin Verified 09/14/23 16:05 irritation furosemide [From Lasix] Allergy Mild Rash Verified 09/14/23 16:05 latex Allergy Mild SKIN Verified 09/14/23 16:05 IRRIATION TRACI Inhibitors AdvReac Intermediate Cough Verified 09/14/23 16:05 lisinopril AdvReac Intermediate Cough Verified 09/14/23 16:05 pravastatin AdvReac Intermediate myalgias Verified 09/14/23 16:05 Home Medications Medication Instructions Recorded Confirmed Type rosuvastatin 5 mg tablet 5 mg PO DAILY 05/02/23 09/14/23 History fluticasone propionate 50 1 spray intranasal BID #3 ea 05/03/23 09/14/23 Rx mcg/actuation nasal spray,suspension verapamil 240 mg 24 hr 240 mg PO BID #180 caps 05/11/23 09/14/23 Rx capsule,extended release cyanocobalamin (vitamin B-12) 1,000 mcg PO DAILY #90 tabs 08/26/23 09/14/23 Rx 1,000 mcg tablet metoprolol tartrate 25 mg tablet 12.5 mg (1/2 x 25 mg) PO BID #60 08/26/23 09/14/23 Rx tabs pantoprazole 40 mg tablet,delayed 40 mg PO BID #60 tabs 08/26/23 09/14/23 Rx release albuterol sulfate 90 mcg/actuation 2 puff inhalation Q6H PRN sob 08/31/23 09/14/23 History aerosol inhaler amoxicillin 875 mg-potassium 1 tab PO TID 09/14/23 09/14/23 History clavulanate 125 mg tablet apixaban 5 mg tablet (Eliquis) 5 mg PO BID 09/14/23 09/14/23 History ferrous sulfate 325 mg PO Q OTHER DAY 09/14/23 09/14/23 History Patient History Medical History COVID-19 Hyponatremia JESSIE (acute kidney injury) Esophageal varices UGIB (upper gastrointestinal bleed) Acute blood loss anemia Persistent atrial fibrillation Arthritis Anemia Cataract RT EYE (LEFT EYE CATARACT REMOVED) Seasonal allergies Left-sided tinnitus Left asymmetrical SNHL AF (paroxysmal atrial fibrillation) FOLLOWED BY [facility] Hyperlipidemia Benign essential hypertension Surgical History History of tooth extraction History of cataract surgery LEFT H/O elbow surgery LEFT x4 H/O arthroscopy of knee RIGHT x3 , LEFT x1 H/O arthroscopy of shoulder RT Family History Father Coronary heart disease Myocardial infarction Brother Cancer, Onset Age: 63 Lung cancer met to brain @ age 67 Sister Cancer, Onset Age: 60 unknown primary Sister No problems noted. Other No family history of adverse response to anesthesia No family history of bleeding disorder Denies family history of Ovarian cancer Prostate cancer Breast cancer Colorectal cancer Social History Smoking Status: Never smoker Tobacco Type: Cigarettes Age Started Using Tobacco: 19; Age Quit Using Tobacco: 41; packs per day: 1; Second Hand Exposure: No; Do You Dip or Chew Tobacco: No; Tobacco Cessation Education Requested by Patient: No Hx Alcohol Use: No Hx Substance Use: No Preferred Language: Setswana Communication Ability: Effective Visual Impairment: No Limitations Hearing Ability: Normal Personal Property Appraiser Required: No Beliefs That Will Affect Care: None marital status: Current Living Situation: Spouse Current Living Situation Comment: Independant Living highrise current occupational status: retired 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 [employer] Other Information That Helps Us Care for You: No other: former Feels Safe at Home: Yes Safety Concerns: Feels Safe At This Time Childhood Exposure to Second-Hand Smoke: Yes caffeine: Yes during the past year weight has: remained stable Dental Care, Regularly: Yes Physical Activity Frequency: Daily Physical Activity Frequency Comment: walking Seatbelt Use: always Sunscreen Use: Yes Do you think of yourself as: straight/heterosexual Assistive Devices: Walker and Wheelchair Review of System Patient not seen Physical Exam Physical Exam: Patient not seen Results & Data Vital Signs (Past 12 Hours) Vital Signs Pulse Pulse Resp BP BP Pulse Ox O2 Del Method 09/16/23 12:00 71 26 H 90 09/16/23 11:00 75 25 H 91 09/16/23 09:00 88 20 94 09/16/23 09:00 123/80 09/16/23 08:00 129/82 09/16/23 08:00 93 H 24 91 09/16/23 08:00 88 20 129/82 92 Nasal Cannula 09/16/23 07:19 91 H 09/16/23 07:00 103 H 18 93 09/16/23 07:00 116/71 09/16/23 06:00 117 H 17 138/84 93 Nasal Cannula 09/16/23 05:00 115 H 20 118/65 92 Nasal Cannula O2 Flow Rate 09/16/23 12:00 09/16/23 11:00 09/16/23 09:00 09/16/23 09:00 09/16/23 08:00 09/16/23 08:00 09/16/23 08:00 2 09/16/23 07:19 09/16/23 07:00 09/16/23 07:00 09/16/23 06:00 2 09/16/23 05:00 2 Laboratory Results Short CBC 09/16/23 Range/Units 04:38 WBC 13.66 H (4.8-10.8) K/ul Hgb 10.3 L (14.0-18.0) g/dl Hct 34.9 L (42.0-52.0) % Plt Count 448 H (130-400) K/uL BMP 09/16/23 04:38 Sodium 137 Potassium 3.3 L Chloride 102 Carbon Dioxide 24 BUN 18 Creatinine 0.74 Glucose 123 H Calcium 7.8 L Diagnostic Findings Chest X-Ray 09/14/23 13:32 XR chest 1V portable HISTORY: weakness COMPARISON: Chest 08/31/2023. FINDINGS: Interval increase in size in the now moderate right pleural effusion. No pneumothorax. No significant left pleural effusion. There are old, healed left-sided rib fractures. No acute fractures identified. The heart remains mildly enlarged. No evidence for pulmonary edema. Right mid to lower lung zone densities favor atelectasis from the pleural effusion. A superimposed pneumonia would be difficult to exclude. IMPRESSION: 1. Interval increase in size in the now moderate right pleural effusion. 2. Right mid to lower lung zone densities favor compressive atelectasis from the pleural effusion. A superimposed pneumonia would be difficult to exclude. ACT 112: Negative or not required by law. Electronically signed by: Bob Lai M.D. 09/14/2023 2:36 PM Chest X-Ray 09/16/23 07:00 SINGLE VIEW CHEST CLINICAL HISTORY: Pleural effusion. FINDINGS: An AP upright chest radiograph is compared to study dated 09/14/2023. The examination is degraded by portable technique and apical lordotic positioning. The heart is enlarged noting atherosclerotic calcification of the thoracic aorta. The pulmonary vasculature is noncongested. There is a moderate to large right pleural effusion with atelectasis/consolidation of the right lower lung. This has increased in size from previous. There is mild left basilar atelectasis. No pneumothorax is seen. The skeletal structures are osteopenic. T he bony thorax is grossly intact. IMPRESSION: 1. Cardiomegaly without radiographic evidence of congestive failure. 2. Moderate to large right pleural effusion with atelectasis/consolidation of t he right lower lung. This has increased in size from previous. ACT 112: Negative or not required by law. Electronically signed by: Scooter Ryder M.D. 09/16/2023 8:[address] 09/16/23 09:18 CT SCAN OF THE CHEST WITHOUT IV CONTRAST CLINICAL HISTORY: Dyspnea. Pleural effusion. COMPARISON STUDY: Chest x-ray dated 09/16/2023. Abdominal CT dated 08/31/2023. TECHNIQUE: CT scan of the thorax was performed from the thoracic inlet to the upper abdomen. Images are reviewed in the axial, sagittal, and coronal planes. IV contrast was not administered for this examination as per the referring clinician. A dose lowering technique was utilized adhering to the principles of ALARA. CT DOSE: 409.56 mGy.cm FINDINGS: Thyroid: Imaged portions of the thyroid gland are normal in size and attenuation. Thoracic aorta: There is atherosclerotic calcification of the thoracic aorta, which is normal in caliber and demonstrates variant 3-vessel arch anatomy. There is a bovine arch, and the left vertebral artery arises directly from the thoracic aorta. Heart: The heart is enlarged and without pericardial effusion. The coronary arteries are densely calcified. Lungs and pleural spaces: There is a large right pleural effusion with atelectasis/consolidation of the right lower lung. The right upper lobe is partially aerated. There is trace left pleural effusion and left basilar atelectasis. The trachea and central airways are clear. A punctate calcified granuloma is seen in the left lower lobe. Mediastinum: There is no mediastinal lymphadenopathy. Yesenia: Not well assessed without IV contrast. Axillae: There is no axillary lymphadenopathy. Upper abdomen: There is a small hiatal hernia. The liver is cirrhotic in morphology. There is a large subcapsular fluid collection in the superior right lobe of the diaphragm. This contains foci of gas and measures approximately 11 x 6 cm in axial dimension. Skeletal structures: The skeletal structures are osteopenic. No lytic or blastic bony lesions are seen. Mild degenerative change and scoliosis is noted in the thoracic spine. Arthritic change is seen in the shoulders. There are chronic/ healed bilateral rib fractures. IMPRESSION: 1. There is a large subcapsular gas and fluid-containing collection in the superior right lobe of the liver. This likely represents an abscess or infected biloma. Clinical correlation will be essential. 2. Large right pleural effusion with atelectasis/consolidation of the right lower lung. Correlate clinically for evidence of pneumonia. 3. Trace pleural effusion is seen on the left. 4. Cirrhotic liver morphology. 5. Additional findings as above. ACT 112: Negative or not required by law. Electronically signed by: Scooter Ryder M.D. 09/16/2023 10:53 AM Abdomen/Pelvis CT 09/16/23 13:[address] WITH IV AND ORAL CONTRAST CT DOSE: 1066.97 mGy.cm HISTORY: eval liver abscess TECHNIQUE: Multiaxial CT images of the abdomen and pelvis were performed following the use of intravenous and oral contrast. A dose lowering technique was utilized adhering to the principles of ALARA. COMPARISON STUDY: Abdomen and pelvis CT 08/31/2023. FINDINGS: There is a thick-walled and mildly distended gallbladder with pericholecystic inflammatory change and fluid. Interval placement of a common bile duct stent which appears in good position. Interval increase in size in the 14 x 12 x 6 cm peripherally enhancing gas and fluid perihepatic/subcapsular collection. This result in mass effect along the right hepatic lobe. This connects to the gallbladder fundus through a tiny tract on image 157. Therefore, these findings are consistent with perforated acute cholecystitis with an adjacent perihepatic/subcapsular abscess. This perihepatic abscess has increased in size in the interval. The main portal vein is patent. The pancreas enhances normally. The spleen and adrenal glands are unremarkable. No hydronephrosis. No retroperitoneal lymphadenopathy. Calcified plaque within the normal caliber abdominal aorta. A large right pleural effusion is better present on the same day chest CT. Compressive atelectasis seen within the right middle and lower lobes from the large pleural effusion. No pneumoperitoneum or pneumatosis. Degenerative changes within the lumbar spine and hips. No acute fractures identified. Focal thickening/irregularity within the left anterior bladder wall which measures up to 11 mm in thickness. This is best seen image 316. This concerning for a urothelial malignancy. Small loculated fluid collection within the fat-containing left inguinal hernia. This is similar to the prior study. Colonic diverticulosis. No evidence for acute diverticulitis. No dilated loops of bowel to suggest an obstruction. Normal appendix. No pelvic lymphadenopathy. Moderate calcified plaque within the normal caliber abdominal aorta. Subtle nodular contour to the liver suggestive of cirrhosis. IMPRESSION: 1. Perforated acute cholecystitis which connects to the right perihepatic/subcapsular 14 x 12 x 6 cm abscess. This abscess has increased in size in the interval. Percutaneous drainage recommended. 2. Interval placement of a common bile duct stent which appears in good position. 3. Large right pleural effusion. 4. Focal thickening/irregularity within the left anterior bladder wall. This is concerning for a urothelial malignancy. Follow-up nonemergent urologic consultation recommended for further evaluation. 5. Small left inguinal hernia containing loculated fluid. This remains unchanged. 6. Additional findings as described above. ACT 112: Positive. There are findings on this exam that require communication between the performing entity and the patient following Patient Test Result Information Act ([place] Act 112) guidelines. Electronically signed by: Bob Lai M.D. 09/16/2023 4:57 PM Medications Administered Current Inpatient Medications Albuterol (Albuterol Hfa 8 Gm Inhaler) 2 puffs INH Q6H PRN PRN Reason: sob Stop: 10/14/23 19:57 Cyanocobalamin (Cyanocobalamin (B-12) 500 Mcg Tablet) 1,000 mcg PO DAILY [facility] Stop: 10/15/23 08:59 Last Admin: 09/16/23 08:35 Dose: 1,000 mcg Ferrous Sulfate (Ferrous Sulfate 325 Mg Tab) 325 mg PO BIDM [facility] Stop: 10/15/23 07:59 Last Admin: 09/16/23 17:34 Dose: 325 mg Fluticasone Propionate (Fluticasone Propionate Na Spr 16 Gm Btl) 1 sprays NA BID [facility] Stop: 10/14/23 20:59 Last Admin: 09/16/23 08:36 Dose: 1 sprays Bumetanide 1 mg/ Syringe 4 mls @ 4 mls/min IV BID@0900,1700 [facility] Stop: 10/15/23 08:59 Last Admin: 09/16/23 17:38 Dose: 4 mls/min Piperacillin Sod/Tazobactam (Sod 4.5 gm/ Dextrose) 100 mls @ 25 mls/hr IV Q8H [facility]; Protocol Stop: 09/26/23 17:59 Last Admin: 09/16/23 17:41 Dose: 25 mls/hr Metoprolol Tartrate (Metoprolol Tartrate 25 Mg Tab) 12.5 mg PO BID [facility] Stop: 10/14/23 20:59 Last Admin: 09/16/23 08:36 Dose: 12.5 mg Pantoprazole Sodium (Pantoprazole 40 Mg Tab) 40 mg PO BID [facility] Stop: 10/14/23 20:59 Last Admin: 09/16/23 08:36 Dose: 40 mg Potassium Chloride (Potassium Chloride Crtab 20 Meq Tabcr) 20 meq PO BID [facility] Stop: 10/16/23 08:59 Last Admin: 09/16/23 08:36 Dose: 20 meq Rosuvastatin Calcium (Rosuvastatin Calcium 5 Mg Tab) 5 mg PO [id number]@2100 [facility] Stop: 10/14/23 20:59 Last Admin: 09/14/23 22:12 Dose: 5 mg Spironolactone (Spironolactone 25 Mg Tab) 25 mg PO QAM [facility] Stop: 10/15/23 13:44 Last Admin: 09/16/23 08:36 Dose: 25 mg Verapamil HCl (Verapamil Hcl 240 Mg Tabcr) 240 mg PO BID [facility] Stop: 10/14/23 20:59 Last Admin: 09/16/23 08:35 Dose: 240 mg
[2023-09-16] MEDS ORDERED: OPTIRAY 320 500ml IV ONE (16:33)
--- NOTE | 2023-09-16 16:59 | CT Scan Report ---
ABDOMEN AND PELVIS CT WITH IV AND ORAL CONTRAST CT DOSE: 1066.97 mGy.cm HISTORY: eval liver abscess TECHNIQUE: Multiaxial CT images of the abdomen and pelvis were performed following the use of intrave nous and oral contrast. A dose lowering technique was utilized adhering to the principles of ALARA. COMPARISON STUDY: Abdomen and pelvis CT 08/31/2023. FINDINGS: There is a thick-walled and mildly distended gallbladder with pericholecystic inflammatory change and fluid. Interval placement of a common bile duct stent which appears in good position. Inte rval increase in size in the 14 x 12 x 6 cm peripherally enhancing gas and fluid perihepatic/subcapsu lar collection. This result in mass effect along the right hepatic lobe. This connects to the gallbla dder fundus through a tiny tract on image 157. Therefore, these findings are consistent with perforat ed acute cholecystitis with an adjacent perihepatic/subcapsular abscess. This perihepatic abscess has increased in size in the interval. The main portal vein is patent. The pancreas enhances normally. T he spleen and adrenal glands are unremarkable. No hydronephrosis. No retroperitoneal lymphadenopathy. Calcified plaque within the normal caliber abdominal aorta. A large right pleural effusion is better present on the same day chest CT. Compressive atelectasis seen within the right middle and lower lob es from the large pleural effusion. No pneumoperitoneum or pneumatosis. Degenerative changes within t he lumbar spine and hips. No acute fractures identified. Focal thickening/irregularity within the lef t anterior bladder wall which measures up to 11 mm in thickness. This is best seen image 316. This co ncerning for a urothelial malignancy. Small loculated fluid collection within the fat-containing left inguinal hernia. This is similar to the prior study. Colonic diverticulosis. No evidence for acute d iverticulitis. No dilated loops of bowel to suggest an obstruction. Normal appendix. No pelvic lympha denopathy. Moderate calcified plaque within the normal caliber abdominal aorta. Subtle nodular contou r to the liver suggestive of cirrhosis. IMPRESSION: 1. Perforated acute cholecystitis which connects to the right perihepatic/subcapsular 14 x 12 x 6 cm abscess. This abscess has increased in size in the interval. Percutaneous drainage recommended. 2. Interval placement of a common bile duct stent which appears in good position. 3. Large right pleural effusion. 4. Focal thickening/irregularity within the left anterior bladder wall. This is concerning for a urot helial malignancy. Follow-up nonemergent urologic consultation recommended for further evaluation. 5. Small left inguinal hernia containing loculated fluid. This remains unchanged. 6. Additional findings as described above. ACT 112: Positive. There are findings on this exam that require communication between the performing entity and the patient following Patient Test Result Information Act ([place] Act 112) guidelines. Electronically signed by: Bob Lai M.D. 09/16/2023 4:57 PM
[2023-09-16] MEDS ORDERED: PIPER/TAZO 4.5g in D5W MINI-B 100 ML IV SCH (18:00)
--- NOTE | 2023-09-16 18:50 | Discharge Summary ---
Date of Service September 16, 2023 Admission HPI Per Admitting Provider Theodore is an 83 year old male with a PMH significant for Cirrhosis with grade I esophageal varices, history of upper GI bleed, paroxysmal atrial fibrillation on Eliquis, hyperlipidemia, hypertension, and recent episode of acute cholecystitis with possible perforation who presented to the [facility] ED on 09/14/23 via EMS for generalized weakness. He remained stable in the ED. Labs were significant for a leukocytosis of 13.8 with neutrophile predominance of 11, CBC consistent with hemoconcentration, INR of 1.4, UA not indicative of infection, and covid 19 positive. Chest xray was read as 1. Interval increase in size in the now moderate right pleural effusion. 2. Right mid to lower lung zone densities favor compressive atelectasis from the pleural effusion. A superimposed pneumonia would be difficult to exclude.. Prior to admission the patient was given 1L NSS. We were asked to admit the patient for placement and rule out possible infection. At the time of the exam the patient was sitting in bed in no acute distress. He states that since he was discharged home from [facility] on 09/09 he has been dealing with generalized weakness to the point that he is unable to walk more than 2-3 steps with the assistance of his walker. He states that he had a biliary stent placed at [facility], they did not perform a cholecystectomy. He had his first home PT appointment today, his Physical Therapist called EMS as she was concerned he was too weak to be at home. He currently denies other complaints besides generalized weakness and increased BL LE swelling since his admission at [facility]. When asked, he states that they had him on IV fluids his entire admission at [facility]. He denies recent fever, chills, chest pain, cough, SOB, abd pain, nausea, vomiting, diarrhea, dysuria, hematuria, melena, and recent trauma. We discussed code st atus, he confirms that he has a living will and POA. He is a DNR/DNI and would want his to make medical decisions for him if he cannot make them himself. I called his , Antoinette, with his permission to obtain further information. She confirms the above history and states that the patient was started on a 10 day course of Augmentin at the time of discharge; the end date is 09/19. She states that he was restarted on his Eliquis after last admission as well. Per the [facility] discharge summary, the patient was evaluated at [facility] on 09/[address] of the abd/pelvis which did not shows signs of perforation. He was started on IV zosyn and NSS, his Eliquis and was held. He was deemed a poor surgical candidate and therefore underwent GI transpapillary biliary stent placement and drainage on 09/06/22 without complications. He tolerated the procedure without complications and was able to tolerate a diet prior to discharge. Please refer to Dr. Sandoval's attestation for any changes to the treatment plan Principal Diagnosis perforated acute cholecystitis, subcapsular hepatic abscess, right pleural effusion, acute diastolic CHF, acute hypoxic respiratory failure Discharge Exam General-alert and oriented x3, no fever, no chills HEENT-head atraumatic and normocephalic, pupils equal and reactive to light, extraocular muscles intact Neck-no lymphadenopathy or thyromegaly, trachea midline Chest-diminished breath sounds at the right base. Bilateral inspiratory rales. No wheezing Cardiac-regular rate and rhythm, normal S1 and S2 Abdomen-normal bowel sounds, nontender, no hepatosplenomegaly Extremities-1+ pitting edema bilateral lower extremities below the knees Neuro-cranial nerves II through XII intact, motor and sensory function within normal limits, strength symmetrical, no focal deficits Psych-normal affect, normal mood Discharge Data Allergies Allergy/AdvReac Type Severity Reaction Status Date / Time adhesive Allergy Mild skin Verified 09/14/23 16:05 irritation furosemide [From Lasix] Allergy Mild Rash Verified 09/14/23 16:05 latex Allergy Mild SKIN Verified 09/14/23 16:05 IRRIATION TRACI Inhibitors AdvReac Intermediate Cough Verified 09/14/23 16:05 lisinopril AdvReac Intermediate Cough Verified 09/14/23 16:05 pravastatin AdvReac Intermediate myalgias Verified 09/14/23 16:05 Consultations 09/14/23 16:31 ED Decision to Admit Stat 09/16/23 11:47 Consult Gastroenterology Routine 09/16/23 14:38 Consult Infectious Diseases Routine Ordered Studies 09/16/23 09:18 CT chest diagnostic wo con Urgent 09/16/23 13:51 CT Abd and Pelvis [CT abd pelvis oral and IV con] Routine Hospital Course (1) Acute cholecystitis: with perforation seen on CTAP. Appreciate GI and ID consults. NPO and IVF, Zosyn ordered. Transfer back to [facility] has been arranged. Accepting physician is DR. Bright Leavitt (2) Hepatic abscess: Suggested on chest CT scan. Definitely seen on abd CT scan with perforated GB. ID and GI consultation appreciated. He is now NPO and on Zosyn. Transfer back to [facility] for definitive surgical treatment. Eliquis was discontinued on admission. Zosyn, day 1 (3) Acute diastolic CHF (congestive heart failure): With associated large right pleural effusion. Improved overall with Bumex diuresis. Left lung looks better but right lung continues to show considerable pleural effusion with elevated diaphragm. Unfortunately, this is due to subcapsular hepatic abscess. Limited follow-up echo reveals normal ejection fraction with moderate to severe mitral regurgitation (4) Acute respiratory failure with hypoxia: Supplemental oxygen per nasal cannula to maintain saturation greater than 90%. Wean off as tolerated. Treat CHF, perforated GB, subcapsular hepatic abscess and right pleural effusion which is causing the hypoxia. Currently on 2 L per nasal cannula (5) Generalized weakness: After recent hospitalization and subsequent common bile duct stent placement at [facility]. OT and PT assessments ordered. (6) COVID-19: Nasal swab positivity persists after infection that dates to last August. No indication for treatment or isolation at this time. Plan TRF back to [facility] for definitive surgical treatment. Dr. Bright Leavitt accepting. Total Time Total Time Spent Total Time Spent (In Minutes): 45 minutes Discharge Plan Discharge Items Patient Disposition: Transfer Acute Care Hospital Reason For Visit: GENERALIZED WEAKNESS, AMBULATORY DYSFUNCTION, PLEA Discharge Diagnosis: perforated acute cholecystitis, subcapsular hepatic abscess, acute diastolic CHF, right pleural effusion, acute hypoxic respiratory failure Activity: As commented below Activity Comment: bedrest Non-emergency contact: Primary Care Provider Call non-emergency contact if: your symptoms worsen Follow-up/Referrals: Mihir Cai MD [Primary Care Provider] - Diet: Nothing by Mouth Addtl Attending Provider Instructions: see PCP as soon as possible after discharge from [facility]. Stop Eliquis permanently Pending Studies at Discharge: No Stand-Alone Forms: My [facility] Skilled Items Patient informed of condition?: Yes DNR: No Discharge Level of Care: Other Communicable Disease: No Discharge Prognosis: Stable Lines: Peripheral IV Urinary Catheter: No Medications and DC Order Prescriptions: New potassium chloride 20 mEq Tablet,Er Particles/Crystals 20 meq PO BID Qty: 1 0RF Zosyn in dextrose (iso-osm) 4.5 gram/100 mL piggyback 4.5 g IV Q12H ferrous sulfate 325 mg (65 mg iron) Tablet,Delayed Release (Dr/Ec) 325 mg PO BIDM Qty: 0 0RF Continued fluticasone propionate 50 mcg/actuation spray,suspension 1 spray intranasal BID Qty: 3 3RF verapamil 240 mg capsule,ext rel. pellets 24 hr 240 mg PO BID Qty: 180 3RF rosuvastatin 5 mg tablet 5 mg PO DAILY Rx Instructions: 5 mg PO every Mon, tue and tuesday metoprolol tartrate 25 mg Tablet 12.5 mg PO BID Qty: 60 2RF cyanocobalamin (vitamin B-12) 1,000 mcg tablet 1,000 mcg PO DAILY Qty: 90 3RF pantoprazole 40 mg tablet,delayed release (DR/EC) 40 mg PO BID Qty: 60 2RF albuterol sulfate 90 mcg/actuation HFA aerosol inhaler 2 puff INHALATION Q6H PRN (Reason: sob) Discontinued amoxicillin-pot clavulanate 875-125 mg tablet 1 tab PO TID Eliquis 5 mg tablet 5 mg PO BID ferrous sulfate 325 mg PO Q OTHER DAY Discharge Orders: Discharge Order (Routine); Ordered 09/16/23 Ordered By: Jonathan Villagran Admission Data Admit Date/Time: 09/14/23 16:33 Attending Provider: Jonathan Villagran Admit Provider: Rylan Sandoval Primary Care Provider: Mihir Cai Other Providers: Rylan Sandoval; [facility]; Stefan Ch; Gaby Steward Coding Level of Care Code 87570 INP/OBS DISCH >30 MIN Diagnoses Acute cholecystitis K81.0 Hepatic abscess K75.0 Acute diastolic CHF (congestive heart failure) I50.31 Acute respiratory failure with hypoxia J96.01 Generalized weakness R53.1 COVID-19 U07.1
[2023-09-16] MEDS ORDERED: D5W AND NSS 1,000 ML IV SCH (19:00)
[2023-09-16] MEDS: ROSUVASTATIN CALCIUM 5 MG TAB PO SCH (21:14)
== END 2023-09-16 23:40 | disposition short-term general hospital (02) | DRG 291 ==
LOC: ED 13:14 → SUATTDRO 16:33 → EDINP 16:33 → 2N 19:59